=== PATIENT | male | born 1980 | race Two or more races ===

== ENCOUNTER 2020-05-27 17:21 | Inpatient (IN) | payer MEDICAID, OTHER ==
[~2020-05-27] VITALS: Ht 162.6 cm; Wt 72.2 kg
[2020-05-27] MEDS ORDERED: MORPHINE SULFATE 4 MG/ML VIAL. IV/SQ PRN (17:45)
[2020-05-27] MEDS ORDERED: DEXAMETHASONE SOD PHOS 20 MG/5 ML VIAL. IV ONE (17:45)
--- NOTE | 2020-05-27 18:12 | RAD ---
Single view chest dated 05/27/2020. No comparison available. Clinical data indication: Cough and shortness of breath. FINDINGS: Single upright portable exam performed. Heart and mediastinal contours within normal limits. There is patchy airspace disease, most predominant at the perihilar regions. No consolidation or pleural effu nanci. No pneumothorax. IMPRESSION: Patchy perihilar airspace disease consistent with pneumonia. Covid 19 pneumonitis not excluded. Electronically signed by: Enrique Hua MD (05/27/2020 6:09 PM) [id number]
[2020-05-27 19:04] LABS: BASO # 0.1 x10^3/uL (0.0-0.2); BASO % 0 % (0-3); EOS % 0 % (0-3); HEMATOCRIT 42.2 % (39.0-53.0); HEMOGLOBIN 14.6 g/dL (13.0-17.5); LYMPH # 0.7 x10^3/uL (1.0-4.8); LYMPH % 4 % (24-48); MEAN CORPUSCULAR HEMOGLOBIN 31 pg (25-35); MEAN CORPUSCULAR HGB CONC 35 g/dL (31-37); MEAN CORPUSCULAR VOLUME 90 fL (79-100); MONO # 0.4 x10^3/uL (0.0-1.1); MONO % 2 % (0-9); NEUT % 93 % (31-73); PLATELET COUNT 239 x10^3/uL (140-400); RED BLOOD COUNT 4.67 x10^6/uL (4.30-5.70); RED CELL DISTRIBUTION WIDTH 13.6 % (11.5-14.5); WHITE BLOOD COUNT 15.1 x10^3/uL (4.0-11.0)
[2020-05-27 19:13] LABS: CALCIUM 8.4 mg/dL (8.5-10.1); CREATININE 1.4 mg/dL (0.7-1.3); GFR 56.1; POTASSIUM 3.6 mmol/L (3.5-5.1)
[2020-05-27 19:19] LABS: ALBUMIN 2.7 g/dL (3.4-5.0); ALBUMIN/GLOBULIN RATIO 0.6 (1.0-1.7); TOTAL BILIRUBIN 0.8 mg/dL (0.2-1.0); TOTAL PROTEIN 7.5 g/dL (6.4-8.2)
[2020-05-27 20:03] LABS: % ATYL 2 % (0-0); % BANDS 33 % (0-9); % BASOS 1 % (0-3); % LYMPHS 3 % (24-48); % MONOS 2 % (0-10); % SEGS 59 % (35-66)
[2020-05-27 20:04] LABS: PLT ESTIMATE ADEQUATE (ADEQUATE)
[2020-05-27] MEDS ORDERED: AZITHRMYCN 500MG IVPB FOR OMNI 250 ML IV ONE (20:45)
[2020-05-27] MEDS ORDERED: cefTRIAXone IV Push 1 GM VIAL. IVP ONE (21:00)
[2020-05-27] MEDS ORDERED: ZOLPIDEM 5 MG TABLET. PO PRN (21:45)
[2020-05-27] MEDS ORDERED: DOCUSATE SODIUM 100 MG CAPSULE. PO PRN (21:45)
[2020-05-27] MEDS ORDERED: ONDANSETRON PF 4 MG/2 ML VIAL. IV PRN ×2 (21:45→23:15)
[2020-05-27] MEDS ORDERED: guaiFENesin DM 200MG/20MG 10 ML SYRUP PO PRN (21:45)
[2020-05-27] MEDS ORDERED: IV NORMAL SALINE 1000ML BAG 1,000 ML IV ONE (22:00)
[2020-05-27] MEDS: ZINC SULFATE 220 MG CAPSULE. PO SCH (22:02)
[2020-05-27] MEDS: ENOXAPARIN 40 MG/0.4 ML SYRINGE. SQ SCH (22:02)
[2020-05-27 22:21] LABS: BILIRUBIN,URINE NEGATIVE (NEG); CLARITY,URINE CLEAR; COLOR,URINE AMBER; NITRITE,URINE NEGATIVE (NEG); PH,URINE 5.5 (<5.0-8.0); PROTEIN,URINE 100 mg/dL (NEG-TRACE)
[2020-05-27 22:26] LABS: AMORPHOUS SEDIMENT,UR PRESENT /HPF; HYALINE CASTS, URINE MODERATE /HPF
[2020-05-27 22:27] LABS: BACTERIA,URINE 0 /HPF (0-FEW); GRANULAR CASTS,URINE MODERATE /HPF; RBC,URINE 0 /HPF (0-2)
--- NOTE | 2020-05-27 22:58 | PHYS DOC ---
Past Medical History Past Medical History: No Pertinent History Past Surgical History: No Surgical History Smoking Status: Never Smoker Alcohol Use: None General Adult EDM: Chief Complaint: SHORTNESS OF BREATH HPI: HPI: Patient is a 40 year old male patient with no significant medical history presented to the ED today complaining of cough, shortness of breath, fevers, symptoms have been going on since May 17, 2020, he states he had a Covid test done 05/17/20, he tested positive on May 20, 2020. Denies any chest pain. Arrives in the ED with O2 sats around 75 to 80% on room air. Review of Systems: Review of Systems: Constitutional: Reports fever Eyes: Denies change in visual acuity. [] HENT: Denies nasal congestion or sore throat. [] Respiratory: Reports cough and shortness of breath. [] Cardiovascular: Denies chest pain or edema. [] GI: Denies abdominal pain, nausea, vomiting, bloody stools or diarrhea. [] : Denies dysuria. [] Musculoskeletal: Denies back pain or joint pain. [] Integument: Denies rash. [] Neurologic: Denies headache, focal weakness or sensory changes. [] Psychiatric: Denies depression or anxiety. [] Heart Score: Risk Factors: Risk Factors: DM, Current or recent (<one month) smoker, HTN, HLP, family history of CAD, obesity. Risk Scores: Score 0 - 3: 2.5% MACE over next 6 weeks - Discharge Home Score 4 - 6: 20.3% MACE over next 6 weeks - Admit for Clinical Observation Score 7 - 10: 72.7% MACE over next 6 weeks - Early Invasive Strategies Current Medications: Current Medications Medications (Trade) Dose Ordered Sig/[facility] Start Time Stop Time Status Last Admin Dose Admin Azithromycin 250 ml @ 250 mls/hr 1X ONCE 05/27/20 20:45 05/27/20 21:44 DC 05/27/20 21:24 250 MLS/HR Ceftriaxone Sodium (Rocephin) 1 gm 1X ONCE 05/27/20 21:00 05/27/20 21:01 DC 05/27/20 21:24 1 GM Dexamethasone Sodium Phosphate (Decadron) 10 mg 1X ONCE 05/27/20 17:45 05/27/20 17:58 DC 05/27/20 19:51 10 MG Morphine Sulfate (Morphine Sulfate) 4 mg PRN Q15MIN PRN 05/27/20 17:45 05/28/20 17:44 Allergies: Allergies: Allergies Coded Allergies Type Severity Reaction Last Updated Verified No Known Drug Allergies 05/27/20 No Physical Exam: PE: Constitutional: Well developed, well nourished, no acute distress, non-toxic appearance. [] HENT: Normocephalic, atraumatic, bilateral external ears normal, oropharynx moist, no oral exudates, nose normal. [] Eyes: PERRLA, EOMI, conjunctiva normal, no discharge. [] Neck: Normal range of motion, no tenderness, supple, no stridor. [] Cardiovascular:Heart rate regular rhythm, no murmur [] Lungs & Thorax: Patient is short of air on arrival to the ED, hypoxic. Was put on 4 L of oxygen. Abdomen: Bowel sounds normal, soft, no tenderness, no masses, no pulsatile masses. [] Skin: Warm, dry, no erythema, no rash. [] Back: No tenderness, no CVA tenderness. [] Extremities: No tenderness, no cyanosis, no clubbing, ROM intact, no edema. [] Neurologic: Alert and oriented X 3, normal motor function, normal sensory function, no focal deficits noted. [] Psychologic: Affect normal, judgement normal, mood normal. [] Current Patient Data: Labs: Laboratory Tests Test 05/27/20 18:59 05/27/20 22:15 White Blood Count 15.1 x10^3/uL (4.0-11.0) H Red Blood Count 4.67 x10^6/uL (4.30-5.70) Hemoglobin 14.6 g/dL (13.0-17.5) Hematocrit 42.2 % (39.0-53.0) Mean Corpuscular Volume 90 fL (79-100) Mean Corpuscular Hemoglobin 31 pg (25-35) Mean Corpuscular Hemoglobin Concent 35 g/dL (31-37) Red Cell Distribution Width 13.6 % (11.5-14.5) Platelet Count 239 x10^3/uL (140-400) Neutrophils (%) (Auto) 93 % (31-73) H Lymphocytes (%) (Auto) 4 % (24-48) L Monocytes (%) (Auto) 2 % (0-9) Eosinophils (%) (Auto) 0 % (0-3) Basophils (%) (Auto) 0 % (0-3) Neutrophils # (Auto) 14.0 x10^3/uL (1.8-7.7) H Lymphocytes # (Auto) 0.7 x10^3/uL (1.0-4.8) L Monocytes # (Auto) 0.4 x10^3/uL (0.0-1.1) Eosinophils # (Auto) 0.0 x10^3/uL (0.0-0.7) Basophils # (Auto) 0.1 x10^3/uL (0.0-0.2) Segmented Neutrophils % 59 % (35-66) Band Neutrophils % 33 % (0-9) H Lymphocytes % 3 % (24-48) L Atypical Lymphocytes % (Manual) 2 % (0-0) H Monocytes % 2 % (0-10) Basophils % 1 % (0-3) Platelet Estimate Adequate (ADEQUATE) Sodium Level 132 mmol/L (136-145) L Potassium Level 3.6 mmol/L (3.5-5.1) Chloride Level 96 mmol/L (98-107) L Carbon Dioxide Level 28 mmol/L (21-32) Anion Gap 8 (6-14) Blood Urea Nitrogen 18 mg/dL (8-26) Creatinine 1.4 mg/dL (0.7-1.3) H Estimated GFR (Cockcroft-Gault) 56.1 BUN/Creatinine Ratio 13 (6-20) Glucose Level 96 mg/dL (70-99) Lactic Acid Level 1.4 mmol/L (0.4-2.0) Calcium Level 8.4 mg/dL (8.5-10.1) L Total Bilirubin 0.8 mg/dL (0.2-1.0) Aspartate Amino Transferase (AST) 59 U/L (15-37) H Alanine Aminotransferase (ALT) 69 U/L (16-63) H Alkaline Phosphatase 178 U/L (46-116) H Total Protein 7.5 g/dL (6.4-8.2) Albumin 2.7 g/dL (3.4-5.0) L Albumin/Globulin Ratio 0.6 (1.0-1.7) L Procalcitonin 1.10 ng/mL (0.00-0.10) H Urine Collection Type Unknown Urine Color Brionna Urine Clarity Clear Urine pH 5.5 (<5.0-8.0) Urine Specific [place] 1.020 (1.000-1.030) Urine Protein 100 mg/dL (NEG-TRACE) Urine Glucose (UA) Negative mg/dL (NEG) Urine Ketones (Stick) Negative mg/dL (NEG) Urine Blood Negative (NEG) Urine Nitrite Negative (NEG) Urine Bilirubin Negative (NEG) Urine Urobilinogen Dipstick 1.0 mg/dL (0.2 mg/dL) Urine Leukocyte Esterase Negative (NEG) Urine RBC 0 /HPF (0-2) Urine WBC 1-4 /HPF (0-4) Urine Amorphous Sediment Present /HPF Urine Bacteria 0 /HPF (0-FEW) Urine Hyaline Casts Moderate /HPF Urine Granular Casts Moderate /HPF Urine Mucus Mod /LPF Laboratory Tests 05/27/20 18:59 Laboratory Tests 05/27/20 18:59 Vital Signs: Vital Signs Date Time Temp Pulse Resp B/P (MAP) Pulse Ox O2 Delivery O2 Flow Rate FiO2 05/27/20 21:03 97 117/63 (81) 97 NonRebreather Mask 15.0 05/27/20 17:30 98.8 26 98.8 EKG: EKG: [] Radiology/Procedures: Radiology/Procedures: []PROCEDURE: PORTABLE CHEST 1V Single view chest dated 05/27/2020. No comparison available. Clinical data indication: Cough and shortness of breath. FINDINGS: Single upright portable exam performed. Heart and mediastinal contours within normal limits. There is patchy airspace disease, most predominant at the perihilar regions. No consolidation or pleural effusion. No pneumothorax. IMPRESSION: Patchy perihilar airspace disease consistent with pneumonia. Covid 19 pneumonit is not excluded. Electronically signed by: Enrique Hua MD (05/27/2020 6:09 PM) [id number] DICTATED and SIGNED BY: ENRIQUE HUA MD DATE: 05/27/20 [id number] Course & Med Decision Making: Course & Med Decision Making Pertinent Labs and Imaging studies reviewed. (See chart for details) This is a 40-year-old male patient presenting to the ED today complaining of shortness of breath, fever, cough that began on May 17, 2020, was tested for COVID-19, received a positive result by his own statement on May 20, 2020. Patient was hypoxic on arrival to the ED, O2 saturations were 75 to 80% on room air. He was put on oxygen 4 L satting at 92%. He was increased to 5 L still struggling to breathe with O2 around 88%. He was finally put on a nonrebreather with O2 sats at 97%-100%. Temperature 98.8, heart rate 110, blood pressure 115/65, heart rate 110 CBC with WBC of 15.1, CMP with creatinine of 1.4, BUN is normal. Lactic is normal, pro calcitonin 1.10. AST 59 ALT 69 ALK 178 Chest x-ray noted for possible Covid pneumonia Patient was started on Decadron, Rocephin, azithromycin. Spoke with Dr. Hutchinson who accepted patient for admission Huan Disclaimer: Huan Disclaimer: This electronic medical record was generated, in whole or in part, using a voice recognition dictation system. Departure Departure Impression: Primary Impression: COVID-19 Additional Impressions: Acute respiratory failure with hypoxia ARF (acute renal failure) Qualified Codes: N17.9 - Acute kidney failure, unspecified Disposition: 09 ADMITTED INPT THIS HOSP Condition: STABLE Referrals: NO PCP (PCP) KALE ASHTON APRN May 27, 2020 22:58
[2020-05-27] MEDS ORDERED: REMDESIVIR LOAD in IV NORMAL SALINE 250ML TV IV ONE (23:00)
[2020-05-27] MEDS ORDERED: ACETAMINOPHEN 325 MG TABLET. PO PRN (23:15)
[2020-05-27] MEDS ORDERED: MORPHINE SULFATE 2 MG/ML VIAL. IV PRN (23:15)
--- NOTE | 2020-05-27 23:53 | NUR ---
Pt to floor via cart from ED. Pt on non rebreather. Pt has no home medications.
[2020-05-27 23:54] VITALS: BP 111/66
[2020-05-28] VITALS (15 sets, daily range): BP systolic 97–126; BP diastolic 55–78
--- NOTE | 2020-05-28 05:13 | EKG ---
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
[2020-05-28] MEDS: DEXAMETHASONE SOD PHOS 4 MG/ML VIAL IVP SCH (05:46)
--- NOTE | 2020-05-28 07:20 | PDOC1 ---
History and Physical Date of Admission Date of Admission DATE: 05/28/20 TIME: 07:05 Identification/Chief Complaint Chief Complaint Shortness of breath Source Source: Chart review, Patient History of Present Illness History of Present Illness Patient is a 40-year-old male complains of ER with complaints of worsening cough, fever, shortness of breath for the past 10 days. He states he tested positive for COVID-19 on 05/20/20. He is taking [id number] medications for symptoms with improvement. Upon arrival in the ER patient was saturating 75-80% on room air, which improved on 4 L nasal cannula. Will admit patient for further medical management. Past Medical History Past Medical History Denies past medical history Past Surgical History Past Surgical History: No pertinent history Family History Family History Denies pertinent family history Social History Smoke: No ALCOHOL: none Drugs: None Current Problem List Problem List Problems Medical Problems: (1) ARF (acute renal failure) Status: Acute Current Medications Current Medications Current Medications Morphine Sulfate (Morphine Sulfate) 4 mg PRN Q15MIN PRN IV/SQ PAIN GREATER THAN 3/10; Start 05/27/20 at 17:45; Stop 05/28/20 at 17:44 Dexamethasone Sodium Phosphate (Decadron) 10 mg 1X ONCE IV Last administered on 05/27/20at 19:51; Start 05/27/20 at 17:45; Stop 05/27/20 at 17:58; Status DC Ceftriaxone Sodium (Rocephin) 1 gm 1X ONCE IVP Last administered on 05/27/20at 21:24; Start 05/27/20 at 21:00; Stop 05/27/20 at 21:01; Status DC Azithromycin 250 ml @ 250 mls/hr 1X ONCE IV Last administered on 05/27/20at 21:24; Start 05/27/20 at 20:45; Stop 05/27/20 at 21:44; Status DC Ondansetron HCl (Zofran) 4 mg PRN Q4HRS PRN IV NAUSEA/VOMITING 1st choice; Start 05/27/20 at 21:45 Zolpidem Tartrate (Ambien) 5 mg PRN QHS PRN PO INSOMNIA; Start 05/27/20 at 21:45 Acetaminophen (Tylenol) 650 mg PRN Q4HRS PRN PO TEMP OVER 100.4F OR MILD PAIN; Start 05/27/20 at 21:45 Docusate Sodium (Colace) 100 mg PRN BID PRN PO HARD STOOLS; Start 05/27/20 at 21:45 Enoxaparin Sodium (Lovenox 40mg Syringe) 40 mg BID SQ Last administered on 05/27/20at 22:02; Start 05/27/20 at 22:00 Zinc Sulfate (Orazinc) 220 mg DAILY PO Last administered on 05/27/20at 22:02; Start 05/27/20 at 22:00 Guaifenesin (Robitussin Dm) 10 ml PRN Q6HRS PRN PO COUGH 1ST CHOICE; Start 05/27/20 at 21:45 Ceftriaxone Sodium (Rocephin) 1 gm QHS IVP ; Start 05/28/20 at 21:00 Azithromycin (Zithromax) 250 mg DAILY PO ; Start 05/28/20 at 09:00; Stop 05/31/20 at 09:01 Dexamethasone Sodium Phosphate (Decadron) 6 mg DAILY07 IVP Last administered on 05/28/20at 05:46; Start 05/28/20 at 07:00 Sodium Chloride 1,000 ml @ 125 mls/hr 1X ONCE IV Last administered on 05/27/20at 22:03; Start 05/27/20 at 22:00; Stop 05/28/20 at 05:59; Status DC Remdesivir 200 mg/ Sodium Chloride 210 ml @ 210 mls/hr 1X ONCE IV Last administered on 05/27/20at 23:11; Start 05/27/20 at 23:00; Stop 05/27/20 at 23:59; Status DC Remdesivir 100 mg/ Sodium Chloride 230 ml @ 460 mls/hr Q24H IV ; Start 05/28/20 at 22:00; Stop 05/31/20 at 22:29 Ondansetron HCl (Zofran) 4 mg PRN Q8HRS PRN IV NAUSEA/VOMITING; Start 05/27/20 at 23:15; Stop 05/27/20 at 23:12; Status DC Morphine Sulfate (Morphine Sulfate) 2 mg PRN Q2HR PRN IV SEVERE PAIN 7-10; Start 05/27/20 at 23:15; Stop 05/28/20 at 23:14 Acetaminophen (Tylenol) 650 mg PRN Q4HRS PRN PO FEVER > 100.3'F; Start 05/27/20 at 23:15; Stop 05/27/20 at 23:12; Status DC Allergies Allergies: Coded Allergies: No Known Drug Allergies (Unverified , 05/27/20) ROS Review of System GENERAL: Fever. No history of weight change, weakness. SKIN: No bruising, hair changes or rashes. EYES: No blurred, double or loss of vision. NOSE AND THROAT: No history of nosebleeds, hoarseness or sore throat. HEART: Denies chest pain, denies palpitations. LUNGS: Cough, shortness of breath. Denies hemoptysis or wheezing. GASTROINTESTINAL: Denies nausea, vomiting, abdominal pain. GENITOURINARY: Denies dysuria, frequency, urgency, hematuria. NEUROLOGIC: Denies history of numbness, tingling, tremor or weakness. PSYCHIATRIC: Denies anxiety, denies depression. ENDOCRINE: No history of heat or cold intolerance, polyuria or polydipsia. EXTREMITIES: Denies muscle weakness, joint pain, pain on walking or stiffness. Physical Exam Physical Exam General: Alert, Oriented X3, Cooperative, No acute distress HEENT: PERRLA, EOMI Lungs: Right lower lung crackles. No excessive work of breathing. Heart: RRR, no murmurs Cardiovascular: S1, S2 Abdomen: Normal bowel sounds, Soft, No tenderness Extremities: No clubbing, No cyanosis Skin: No rashes, No significant lesion Neuro: Normal speech, Normal tone, Sensation intact Psych/Mental Status: Mental status NL, Mood NL Vitals Vitals Vital Signs Date Time Temp Pulse Resp B/P (MAP) Pulse Ox O2 Delivery O2 Flow Rate FiO2 05/28/20 03:00 98.9 90 18 126/72 (90) 93 15.0 98.9 05/27/20 23:54 NonRebreather Mask Labs Labs Laboratory Tests Test 05/27/20 18:59 05/27/20 22:15 White Blood Count 15.1 x10^3/uL (4.0-11.0) Red Blood Count 4.67 x10^6/uL (4.30-5.70) Hemoglobin 14.6 g/dL (13.0-17.5) Hematocrit 42.2 % (39.0-53.0) Mean Corpuscular Volume 90 fL (79-100) Mean Corpuscular Hemoglobin 31 pg (25-35) Mean Corpuscular Hemoglobin Concent 35 g/dL (31-37) Red Cell Distribution Width 13.6 % (11.5-14.5) Platelet Count 239 x10^3/uL (140-400) Neutrophils (%) (Auto) 93 % (31-73) Lymphocytes (%) (Auto) 4 % (24-48) Monocytes (%) (Auto) 2 % (0-9) Eosinophils (%) (Auto) 0 % (0-3) Basophils (%) (Auto) 0 % (0-3) Neutrophils # (Auto) 14.0 x10^3/uL (1.8-7.7) Lymphocytes # (Auto) 0.7 x10^3/uL (1.0-4.8) Monocytes # (Auto) 0.4 x10^3/uL (0.0-1.1) Eosinophils # (Auto) 0.0 x10^3/uL (0.0-0.7) Basophils # (Auto) 0.1 x10^3/uL (0.0-0.2) Segmented Neutrophils % 59 % (35-66) Band Neutrophils % 33 % (0-9) Lymphocytes % 3 % (24-48) Atypical Lymphocytes % (Manual) 2 % (0-0) Monocytes % 2 % (0-10) Basophils % 1 % (0-3) Platelet Estimate Adequate (ADEQUATE) Sodium Level 132 mmol/L (136-145) Potassium Level 3.6 mmol/L (3.5-5.1) Chloride Level 96 mmol/L (98-107) Carbon Dioxide Level 28 mmol/L (21-32) Anion Gap 8 (6-14) Blood Urea Nitrogen 18 mg/dL (8-26) Creatinine 1.4 mg/dL (0.7-1.3) Estimated GFR (Cockcroft-Gault) 56.1 BUN/Creatinine Ratio 13 (6-20) Glucose Level 96 mg/dL (70-99) Lactic Acid Level 1.4 mmol/L (0.4-2.0) Calcium Level 8.4 mg/dL (8.5-10.1) Total Bilirubin 0.8 mg/dL (0.2-1.0) Aspartate Amino Transf (AST/SGOT) 59 U/L (15-37) Alanine Aminotransferase (ALT/SGPT) 69 U/L (16-63) Alkaline Phosphatase 178 U/L (46-116) Total Protein 7.5 g/dL (6.4-8.2) Albumin 2.7 g/dL (3.4-5.0) Albumin/Globulin Ratio 0.6 (1.0-1.7) Procalcitonin 1.10 ng/mL (0.00-0.10) Urine Collection Type Unknown Urine Color Brionna Urine Clarity Clear Urine pH 5.5 (<5.0-8.0) Urine Specific [place] 1.020 (1.000-1.030) Urine Protein 100 mg/dL (NEG-TRACE) Urine Glucose (UA) Negative mg/dL (NEG) Urine Ketones (Stick) Negative mg/dL (NEG) Urine Blood Negative (NEG) Urine Nitrite Negative (NEG) Urine Bilirubin Negative (NEG) Urine Urobilinogen Dipstick 1.0 mg/dL (0.2 mg/dL) Urine Leukocyte Esterase Negative (NEG) Urine RBC 0 /HPF (0-2) Urine WBC 1-4 /HPF (0-4) Urine Amorphous Sediment Present /HPF Urine Bacteria 0 /HPF (0-FEW) Urine Hyaline Casts Moderate /HPF Urine Granular Casts Moderate /HPF Urine Mucus Mod /LPF Laboratory Tests Test 05/27/20 18:59 05/27/20 22:15 White Blood Count 15.1 x10^3/uL (4.0-11.0) Red Blood Count 4.67 x10^6/uL (4.30-5.70) Hemoglobin 14.6 g/dL (13.0-17.5) Hematocrit 42.2 % (39.0-53.0) Mean Corpuscular Volume 90 fL (79-100) Mean Corpuscular Hemoglobin 31 pg (25-35) Mean Corpuscular Hemoglobin Concent 35 g/dL (31-37) Red Cell Distribution Width 13.6 % (11.5-14.5) Platelet Count 239 x10^3/uL (140-400) Neutrophils (%) (Auto) 93 % (31-73) Lymphocytes (%) (Auto) 4 % (24-48) Monocytes (%) (Auto) 2 % (0-9) Eosinophils (%) (Auto) 0 % (0-3) Basophils (%) (Auto) 0 % (0-3) Neutrophils # (Auto) 14.0 x10^3/uL (1.8-7.7) Lymphocytes # (Auto) 0.7 x10^3/uL (1.0-4.8) Monocytes # (Auto) 0.4 x10^3/uL (0.0-1.1) Eosinophils # (Auto) 0.0 x10^3/uL (0.0-0.7) Basophils # (Auto) 0.1 x10^3/uL (0.0-0.2) Segmented Neutrophils % 59 % (35-66) Band Neutrophils % 33 % (0-9) Lymphocytes % 3 % (24-48) Atypical Lymphocytes % (Manual) 2 % (0-0) Monocytes % 2 % (0-10) Basophils % 1 % (0-3) Platelet Estimate Adequate (ADEQUATE) Sodium Level 132 mmol/L (136-145) Potassium Level 3.6 mmol/L (3.5-5.1) Chloride Level 96 mmol/L (98-107) Carbon Dioxide Level 28 mmol/L (21-32) Anion Gap 8 (6-14) Blood Urea Nitrogen 18 mg/dL (8-26) Creatinine 1.4 mg/dL (0.7-1.3) Estimated GFR (Cockcroft-Gault) 56.1 BUN/Creatinine Ratio 13 (6-20) Glucose Level 96 mg/dL (70-99) Lactic Acid Level 1.4 mmol/L (0.4-2.0) Calcium Level 8.4 mg/dL (8.5-10.1) Total Bilirubin 0.8 mg/dL (0.2-1.0) Aspartate Amino Transf (AST/SGOT) 59 U/L (15-37) Alanine Aminotransferase (ALT/SGPT) 69 U/L (16-63) Alkaline Phosphatase 178 U/L (46-116) Total Protein 7.5 g/dL (6.4-8.2) Albumin 2.7 g/dL (3.4-5.0) Albumin/Globulin Ratio 0.6 (1.0-1.7) Procalcitonin 1.10 ng/mL (0.00-0.10) Urine Collection Type Unknown Urine Color [place]ionna Urine Clarity Clear Urine pH 5.5 (<5.0-8.0) Urine Specific [place] 1.020 (1.000-1.030) Urine Protein 100 mg/dL (NEG-TRACE) Urine Glucose (UA) Negative mg/dL (NEG) Urine Ketones (Stick) Negative mg/dL (NEG) Urine Blood Negative (NEG) Urine Nitrite Negative (NEG) Urine Bilirubin Negative (NEG) Urine Urobilinogen Dipstick 1.0 mg/dL (0.2 mg/dL) Urine Leukocyte Esterase Negative (NEG) Urine RBC 0 /HPF (0-2) Urine WBC 1-4 /HPF (0-4) Urine Amorphous Sediment Present /HPF Urine Bacteria 0 /HPF (0-FEW) Urine Hyaline Casts Moderate /HPF Urine Granular Casts Moderate /HPF Urine Mucus Mod /LPF Images Images PORTABLE CHEST 1V Single view chest dated 05/27/2020. No comparison available. Clinical data indication: Cough and shortness of breath. FINDINGS: Single upright portable exam performed. Heart and mediastinal contours within normal limits. There is patchy airspace disease, most predominant at the perihilar regions. No consolidation or pleural effusion. No pneumothorax. IMPRESSION: Patchy perihilar airspace disease consistent with pneumonia. Covid 19 pneumonitis not excluded. VTE Prophylaxis Ordered VTE Prophylaxis Devices: No VTE Pharmacological Prophylaxi: Yes Assessment/Plan Assessment/Plan Acute respiratory failure hypoxia COVID-19 pneumonia Leukocytosis MARIA VICTORIA Vasomotor nephropathy Severe malnutrition Plan: Positive COVID-19 test outpatient. Labs and imaging consistent with COVID-19 i nfection. Patient initiated on remdesivir; will follow LFTs Rocephin and azithromycin; IV steroids Consultation to pulmonology, patient their recommendations Supportive care FEN - Cardiac diet PPX - Lovenox FULL CODE Dispo - inpatient for above Justifications for Admission Other Justification MARIA ELENA RAY MD May 28, 2020 07:20
--- NOTE | 2020-05-28 08:30 | CONS ---
DATE OF CONSULTATION: PULMONARY CONSULTATION ATTENDING PHYSICIAN: Evan Hutchinson MD REASON FOR CONSULTATION: Respiratory failure, hypoxia. HISTORY OF PRESENT ILLNESS: This is a 40-year-old male with no significant past medical history. He has no history of tobacco use. He was brought into the hospital with cough, shortness of breath, fevers and the symptoms have been going on since 05/17/2020. He was tested positive on 05/20/2020. His saturation was 75-80% on room air on arrival. Currently, he is on a nonrebreather mask and saturations are in the high 80s. He does appear comfortable. Denies any chest pain, no headache, no nausea, vomiting or diarrhea. Chest x-ray showed bilateral patchy infiltrates. PAST MEDICAL HISTORY: Essentially unremarkable. PAST SURGICAL HISTORY: None. SOCIAL HISTORY: Nonsmoker. ALLERGIES: None. MEDICATIONS: Reviewed as listed in the MRAD including remdesivir and dexamethasone. REVIEW OF SYSTEMS: As discussed in my history of present illness, otherwise noncontributory. PHYSICAL EXAMINATION: VITAL SIGNS: Reviewed. Afebrile, blood pressure stable, pulse ox 93% on 15 liters. GENERAL: Visual exam done due to COVID-19. No obvious respiratory distress, but on 100% oxygen. SKIN: No skin rash. EXTREMITIES: No paradoxical breathing. LABORATORY DATA: Reviewed. White cell count 15.1, hemoglobin 14.6 and platelets are 239. BUN 18, creatinine 1.4. Procalcitonin 1.1. IMPRESSION: 1. Acute hypoxic respiratory failure secondary to acute respiratory distress syndrome and acute lung injury from COVID-19 viral pneumonia. 2. COVID-19 viral pneumonia. 3. Abnormal chest x-ray with bilateral patchy infiltrates consistent with COVID-19 pneumonia. Cannot exclude superimposed bacterial pneumonia. 4. Abnormal liver function test secondary to COVID-19. 5. Increased procalcitonin. Likely superimposed bacterial pneumonia. 6. Hyponatremia. 7. Acute kidney injury. RECOMMENDATIONS: 1. We will transfer the patient to the ICU and place him on high flow oxygen via Vapotherm. 2. Closely watch for his oxygenation. May need mechanical ventilation. 3. Remdesivir has been initiated and will continue. 4. Continue dexamethasone. 5. Empiric antibiotics. 6. High dose DVT prophylaxis. 7. Obtain D-dimer. 8. Cough suppressant. 9. Discussed with RN. We will follow along with you. cct 30 min SUELLEN BLANCO MD DR: PETER/hill JOB#: [id number] / [id number] NISHA
[2020-05-28] MEDS: ZINC SULFATE 220 MG CAPSULE. PO SCH (08:32)
[2020-05-28] MEDS: AZITHROMYCIN 250 MG TABLET. PO SCH (08:32)
[2020-05-28] MEDS: ENOXAPARIN 40 MG/0.4 ML SYRINGE. SQ SCH ×2 (08:32→21:08)
--- NOTE | 2020-05-28 08:45 | NUR ---
Rounds were made by Dr Sen. Orders received to transfer pt to ICU for Vapotherm. Pt currently on non rebreather at 15L and oxygen sat 85-88%. When nonrebreather was removed to take po meds, sats dropped to 72%. Spoke to family and patient verbalized understanding of transfer. Dr Franco was here and saw patient prior to transfer.
[2020-05-28] MEDS: STERILE WATER for RESP 1,000 ML BAG. INH PRN ×2 (09:01→16:15)
--- NOTE | 2020-05-28 09:15 | NUR ---
CHANDRA following for discharge planning. Pt admitted to 6S from ED and then transferred to ICU. Pt on 15l. santos Lepe to follow.
[2020-05-28 09:37] LABS: BASO % 0 % (0-3); EOS % 0 % (0-3); HEMATOCRIT 43.7 % (39.0-53.0); HEMOGLOBIN 14.5 g/dL (13.0-17.5); LYMPH # 0.5 x10^3/uL (1.0-4.8); LYMPH % 3 % (24-48); MEAN CORPUSCULAR HEMOGLOBIN 31 pg (25-35); MEAN CORPUSCULAR HGB CONC 33 g/dL (31-37); MEAN CORPUSCULAR VOLUME 92 fL (79-100); MONO # 0.3 x10^3/uL (0.0-1.1); MONO % 2 % (0-9); NEUT % 95 % (31-73); PLATELET COUNT 269 x10^3/uL (140-400); RED BLOOD COUNT 4.76 x10^6/uL (4.30-5.70); RED CELL DISTRIBUTION WIDTH 13.8 % (11.5-14.5); WHITE BLOOD COUNT 15.8 x10^3/uL (4.0-11.0)
[2020-05-28 09:42] LABS: ALBUMIN 2.4 g/dL (3.4-5.0); ALBUMIN/GLOBULIN RATIO 0.5 (1.0-1.7); CALCIUM 8.5 mg/dL (8.5-10.1); GFR 82.8; POTASSIUM 3.7 mmol/L (3.5-5.1); TOTAL BILIRUBIN 0.4 mg/dL (0.2-1.0); TOTAL PROTEIN 7.3 g/dL (6.4-8.2)
[2020-05-28] MEDS: IV NORMAL SALINE 1000ML BAG 1,000 ML IV SCH ×2 (10:00→21:28)
[2020-05-28] MEDS: ACETAMINOPHEN 325 MG TABLET. PO PRN (15:53)
[2020-05-28] MEDS: cefTRIAXone IV Push 1 GM VIAL. IVP SCH (21:09)
[2020-05-28] MEDS: REMDESIVIR 100mg in NORMAL SALINE 250ML X 4 DAYS IV SCH (21:29)
[2020-05-29] VITALS (23 sets, daily range): BP systolic 97–129; BP diastolic 56–86
[2020-05-29] MEDS: DEXAMETHASONE SOD PHOS 4 MG/ML VIAL IVP SCH (06:55)
[2020-05-29 07:33] LABS: BASO % 0 % (0-3); EOS % 0 % (0-3); HEMATOCRIT 39.4 % (39.0-53.0); HEMOGLOBIN 13.4 g/dL (13.0-17.5); LYMPH # 0.7 x10^3/uL (1.0-4.8); LYMPH % 6 % (24-48); MEAN CORPUSCULAR HEMOGLOBIN 31 pg (25-35); MEAN CORPUSCULAR HGB CONC 34 g/dL (31-37); MEAN CORPUSCULAR VOLUME 91 fL (79-100); MONO % 8 % (0-9); NEUT # 10.6 x10^3/uL (1.8-7.7); NEUT % 86 % (31-73); PLATELET COUNT 303 x10^3/uL (140-400); RED BLOOD COUNT 4.32 x10^6/uL (4.30-5.70); RED CELL DISTRIBUTION WIDTH 14.1 % (11.5-14.5); WHITE BLOOD COUNT 12.3 x10^3/uL (4.0-11.0)
[2020-05-29] MEDS: STERILE WATER for RESP 1,000 ML BAG. INH PRN (07:39)
[2020-05-29 07:46] LABS: CALCIUM 8.2 mg/dL (8.5-10.1); GFR 82.8; POTASSIUM 3.9 mmol/L (3.5-5.1)
[2020-05-29] MEDS: ENOXAPARIN 40 MG/0.4 ML SYRINGE. SQ SCH ×2 (08:32→21:34)
[2020-05-29] MEDS: AZITHROMYCIN 250 MG TABLET. PO SCH (08:32)
[2020-05-29] MEDS: ZINC SULFATE 220 MG CAPSULE. PO SCH (08:32)
[2020-05-29] MEDS ORDERED: POLYVINYL ALCOHOL 1.4% OPHTH SOLUTION 15ML BOTTLE. OU PRN (09:00)
[2020-05-29 09:17] LABS: ALBUMIN 2.1 g/dL (3.4-5.0); DIRECT BILIRUBIN 0.2 mg/dL (0.0-0.2); TOTAL BILIRUBIN 0.3 mg/dL (0.2-1.0); TOTAL PROTEIN 6.6 g/dL (6.4-8.2)
[2020-05-29 10:23] LABS: MAGNESIUM 2.6 mg/dL (1.8-2.4)
--- NOTE | 2020-05-29 10:25 | PDOC ---
PULMONARY PROGRESS NOTES DATE: 05/29/20 TIME: 10:22 Subjective remains on vapotherm 100%FIO2 Vitals Vital Signs Date Time Temp Pulse Resp B/P (MAP) Pulse Ox O2 Delivery O2 Flow Rate FiO2 05/29/20 09:04 91 VapoTherm 30.0 05/29/20 09:00 68 22 126/73 (90) 05/29/20 07:00 98.5 98.5 Comments visual exam done no resp distress General: Alert, No acute distress Labs Laboratory Tests Test 05/27/20 18:59 05/27/20 22:15 05/28/20 08:43 05/28/20 08:45 White Blood Count 15.1 x10^3/uL (4.0-11.0) 15.8 x10^3/uL (4.0-11.0) Red Blood Count 4.67 x10^6/uL (4.30-5.70) 4.76 x10^6/uL (4.30-5.70) Hemoglobin 14.6 g/dL (13.0-17.5) 14.5 g/dL (13.0-17.5) Hematocrit 42.2 % (39.0-53.0) 43.7 % (39.0-53.0) Mean Corpuscular Volume 90 fL (79-100) 92 fL (79-100) Mean Corpuscular Hemoglobin 31 pg (25-35) 31 pg (25-35) Mean Corpuscular Hemoglobin Concent 35 g/dL (31-37) 33 g/dL (31-37) Red Cell Distribution Width 13.6 % (11.5-14.5) 13.8 % (11.5-14.5) Platelet Count 239 x10^3/uL (140-400) 269 x10^3/uL (140-400) Neutrophils (%) (Auto) 93 % (31-73) 95 % (31-73) Lymphocytes (%) (Auto) 4 % (24-48) 3 % (24-48) Monocytes (%) (Auto) 2 % (0-9) 2 % (0-9) Eosinophils (%) (Auto) 0 % (0-3) 0 % (0-3) Basophils (%) (Auto) 0 % (0-3) 0 % (0-3) Neutrophils # (Auto) 14.0 x10^3/uL (1.8-7.7) 15.0 x10^3/uL (1.8-7.7) Lymphocytes # (Auto) 0.7 x10^3/uL (1.0-4.8) 0.5 x10^3/uL (1.0-4.8) Monocytes # (Auto) 0.4 x10^3/uL (0.0-1.1) 0.3 x10^3/uL (0.0-1.1) Eosinophils # (Auto) 0.0 x10^3/uL (0.0-0.7) 0.0 x10^3/uL (0.0-0.7) Basophils # (Auto) 0.1 x10^3/uL (0.0-0.2) 0.0 x10^3/uL (0.0-0.2) Segmented Neutrophils % 59 % (35-66) Band Neutrophils % 33 % (0-9) Lymphocytes % 3 % (24-48) Atypical Lymphocytes % (Manual) 2 % (0-0) Monocytes % 2 % (0-10) Basophils % 1 % (0-3) Platelet Estimate Adequate (ADEQUATE) Sodium Level 132 mmol/L (136-145) 137 mmol/L (136-145) Potassium Level 3.6 mmol/L (3.5-5.1) 3.7 mmol/L (3.5-5.1) Chloride Level 96 mmol/L (98-107) 99 mmol/L (98-107) Carbon Dioxide Level 28 mmol/L (21-32) 27 mmol/L (21-32) Anion Gap 8 (6-14) 11 (6-14) Blood Urea Nitrogen 18 mg/dL (8-26) 20 mg/dL (8-26) Creatinine 1.4 mg/dL (0.7-1.3) 1.0 mg/dL (0.7-1.3) Estimated GFR (Cockcroft-Gault) 56.1 82.8 BUN/Creatinine Ratio 13 (6-20) 20 (6-20) Glucose Level 96 mg/dL (70-99) 141 mg/dL (70-99) Lactic Acid Level 1.4 mmol/L (0.4-2.0) Calcium Level 8.4 mg/dL (8.5-10.1) 8.5 mg/dL (8.5-10.1) Total Bilirubin 0.8 mg/dL (0.2-1.0) 0.4 mg/dL (0.2-1.0) Aspartate Amino Transf (AST/SGOT) 59 U/L (15-37) 58 U/L (15-37) Alanine Aminotransferase (ALT/SGPT) 69 U/L (16-63) 62 U/L (16-63) Alkaline Phosphatase 178 U/L (46-116) 166 U/L (46-116) Total Protein 7.5 g/dL (6.4-8.2) 7.3 g/dL (6.4-8.2) Albumin 2.7 g/dL (3.4-5.0) 2.4 g/dL (3.4-5.0) Albumin/Globulin Ratio 0.6 (1.0-1.7) 0.5 (1.0-1.7) Procalcitonin 1.10 ng/mL (0.00-0.10) Urine Collection Type Unknown Urine Color Brionna Urine Clarity Clear Urine pH 5.5 (<5.0-8.0) Urine Specific [place] 1.020 (1.000-1.030) Urine Protein 100 mg/dL (NEG-TRACE) Urine Glucose (UA) Negative mg/dL (NEG) Urine Ketones (Stick) Negative mg/dL (NEG) Urine Blood Negative (NEG) Urine Nitrite Negative (NEG) Urine Bilirubin Negative (NEG) Urine Urobilinogen Dipstick 1.0 mg/dL (0.2 mg/dL) Urine Leukocyte Esterase Negative (NEG) Urine RBC 0 /HPF (0-2) Urine WBC 1-4 /HPF (0-4) Urine Amorphous Sediment Present /HPF Urine Bacteria 0 /HPF (0-FEW) Urine Hyaline Casts Moderate /HPF Urine Granular Casts Moderate /HPF Urine Mucus Mod /LPF D-Dimer (Yulia) 1.37 ug/mlFEU (0.00-0.50) Test 05/29/20 07:15 White Blood Count 12.3 x10^3/uL (4.0-11.0) Red Blood Count 4.32 x10^6/uL (4.30-5.70) Hemoglobin 13.4 g/dL (13.0-17.5) Hematocrit 39.4 % (39.0-53.0) Mean Corpuscular Volume 91 fL (79-100) Mean Corpuscular Hemoglobin 31 pg (25-35) Mean Corpuscular Hemoglobin Concent 34 g/dL (31-37) Red Cell Distribution Width 14.1 % (11.5-14.5) Platelet Count 303 x10^3/uL (140-400) Neutrophils (%) (Auto) 86 % (31-73) Lymphocytes (%) (Auto) 6 % (24-48) Monocytes (%) (Auto) 8 % (0-9) Eosinophils (%) (Auto) 0 % (0-3) Basophils (%) (Auto) 0 % (0-3) Neutrophils # (Auto) 10.6 x10^3/uL (1.8-7.7) Lymphocytes # (Auto) 0.7 x10^3/uL (1.0-4.8) Monocytes # (Auto) 1.0 x10^3/uL (0.0-1.1) Eosinophils # (Auto) 0.0 x10^3/uL (0.0-0.7) Basophils # (Auto) 0.0 x10^3/uL (0.0-0.2) D-Dimer (Yulia) 0.98 ug/mlFEU (0.00-0.50) Sodium Level 139 mmol/L (136-145) Potassium Level 3.9 mmol/L (3.5-5.1) Chloride Level 104 mmol/L (98-107) Carbon Dioxide Level 26 mmol/L (21-32) Anion Gap 9 (6-14) Blood Urea Nitrogen 24 mg/dL (8-26) Creatinine 1.0 mg/dL (0.7-1.3) Estimated GFR (Cockcroft-Gault) 82.8 Glucose Level 108 mg/dL (70-99) Calcium Level 8.2 mg/dL (8.5-10.1) Total Bilirubin 0.3 mg/dL (0.2-1.0) Direct Bilirubin 0.2 mg/dL (0.0-0.2) Aspartate Amino Transf (AST/SGOT) 56 U/L (15-37) Alanine Aminotransferase (ALT/SGPT) 63 U/L (16-63) Alkaline Phosphatase 152 U/L (46-116) WP-Fun-T-Type Natriuretic Peptide 201 pg/mL (0-124) Total Protein 6.6 g/dL (6.4-8.2) Albumin 2.1 g/dL (3.4-5.0) Laboratory Tests Test 05/29/20 07:15 White Blood Count 12.3 x10^3/uL (4.0-11.0) Red Blood Count 4.32 x10^6/uL (4.30-5.70) Hemoglobin 13.4 g/dL (13.0-17.5) Hematocrit 39.4 % (39.0-53.0) Mean Corpuscular Volume 91 fL (79-100) Mean Corpuscular Hemoglobin 31 pg (25-35) Mean Corpuscular Hemoglobin Concent 34 g/dL (31-37) Red Cell Distribution Width 14.1 % (11.5-14.5) Platelet Count 303 x10^3/uL (140-400) Neutrophils (%) (Auto) 86 % (31-73) Lymphocytes (%) (Auto) 6 % (24-48) Monocytes (%) (Auto) 8 % (0-9) Eosinophils (%) (Auto) 0 % (0-3) Basophils (%) (Auto) 0 % (0-3) Neutrophils # (Auto) 10.6 x10^3/uL (1.8-7.7) Lymphocytes # (Auto) 0.7 x10^3/uL (1.0-4.8) Monocytes # (Auto) 1.0 x10^3/uL (0.0-1.1) Eosinophils # (Auto) 0.0 x10^3/uL (0.0-0.7) Basophils # (Auto) 0.0 x10^3/uL (0.0-0.2) D-Dimer (Yulia) 0.98 ug/mlFEU (0.00-0.50) Sodium Level 139 mmol/L (136-145) Potassium Level 3.9 mmol/L (3.5-5.1) Chloride Level 104 mmol/L (98-107) Carbon Dioxide Level 26 mmol/L (21-32) Anion Gap 9 (6-14) Blood Urea Nitrogen 24 mg/dL (8-26) Creatinine 1.0 mg/dL (0.7-1.3) Estimated GFR (Cockcroft-Gault) 82.8 Glucose Level 108 mg/dL (70-99) Calcium Level 8.2 mg/dL (8.5-10.1) Total Bilirubin 0.3 mg/dL (0.2-1.0) Direct Bilirubin 0.2 mg/dL (0.0-0.2) Aspartate Amino Transf (AST/SGOT) 56 U/L (15-37) Alanine Aminotransferase (ALT/SGPT) 63 U/L (16-63) Alkaline Phosphatase 152 U/L (46-116) LX-Bqh-W-Type Natriuretic Peptide 201 pg/mL (0-124) Total Protein 6.6 g/dL (6.4-8.2) Albumin 2.1 g/dL (3.4-5.0) Impression . 1. Acute hypoxic respiratory failure secondary to acute respiratory distress syndrome and acute lung injury from COVID-19 viral pneumonia. 2. COVID-19 viral pneumonia. 3. Abnormal chest x-ray with bilateral patchy infiltrates consistent with COVID-19 pneumonia. Cannot exclude superimposed bacterial pneumonia. 4. Abnormal liver function test secondary to COVID-19. 5. Increased procalcitonin. Likely superimposed bacterial pneumonia. 6. Hyponatremia. 7. Acute kidney injury. Plan . 1. Continue high flow oxygen Vapotherm./100%FIO2 2. Closely watch for his oxygenation. May need mechanical ventilation. 3. Remdesivir has been initiated and will continue. 4. Continue dexamethasone. 5. Empiric antibiotics. 6. High dose DVT prophylaxis. 7. D-dimer.trending down 8. Cough suppressant. 9. Discussed with RN. We will follow along with you. SUELLEN BLANCO MD May 29, 2020 10:25
[2020-05-29] MEDS: ASCORBIC ACID 1,000 MG TABLET PO SCH (12:51)
[2020-05-29] MEDS: IV NORMAL SALINE 1000ML BAG 1,000 ML IV SCH (12:51)
[2020-05-29] MEDS: FOLIC/VIT B COMP W-C (RENAL) TABLET. PO SCH (12:51)
[2020-05-29] MEDS: ACETAMINOPHEN 325 MG TABLET. PO PRN (12:51)
--- NOTE | 2020-05-29 14:01 | PDOC ---
PROGRESS NOTES Date of Service: DATE: 05/29/20 TIME: 14:01 Chief Complaint Chief Complaint Acute respiratory failure hypoxia COVID-19 pneumonia Leukocytosis MARIA VICTORIA Vasomotor nephropathy Severe malnutrition History of Present Illness History of Present Illness Positive COVID-19 test outpatient. Labs and imaging consistent with COVID-19 infection. Patient initiated on remdesivir; will follow LFTs Rocephin and azithromycin; IV steroids Consultation to pulmonology, patient their recommendations Supportive care Vitals Vitals Vital Signs Date Time Temp Pulse Resp B/P (MAP) Pulse Ox O2 Delivery O2 Flow Rate FiO2 05/29/20 12:00 Nasal Cannula 30.0 05/29/20 12:00 76 22 120/68 (85) 93 05/29/20 11:00 99.0 99.0 Physical Exam General: Alert, Oriented X3, Cooperative, No acute distress Heart: Regular rate, Normal S1 Lungs: Clear Abdomen: Normal bowel sounds, Soft Extremities: No clubbing, No cyanosis Skin: No rashes, No breakdown Labs LABS Laboratory Tests Test 05/29/20 07:15 White Blood Count 12.3 x10^3/uL (4.0-11.0) Red Blood Count 4.32 x10^6/uL (4.30-5.70) Hemoglobin 13.4 g/dL (13.0-17.5) Hematocrit 39.4 % (39.0-53.0) Mean Corpuscular Volume 91 fL (79-100) Mean Corpuscular Hemoglobin 31 pg (25-35) Mean Corpuscular Hemoglobin Concent 34 g/dL (31-37) Red Cell Distribution Width 14.1 % (11.5-14.5) Platelet Count 303 x10^3/uL (140-400) Neutrophils (%) (Auto) 86 % (31-73) Lymphocytes (%) (Auto) 6 % (24-48) Monocytes (%) (Auto) 8 % (0-9) Eosinophils (%) (Auto) 0 % (0-3) Basophils (%) (Auto) 0 % (0-3) Neutrophils # (Auto) 10.6 x10^3/uL (1.8-7.7) Lymphocytes # (Auto) 0.7 x10^3/uL (1.0-4.8) Monocytes # (Auto) 1.0 x10^3/uL (0.0-1.1) Eosinophils # (Auto) 0.0 x10^3/uL (0.0-0.7) Basophils # (Auto) 0.0 x10^3/uL (0.0-0.2) D-Dimer (Yulia) 0.98 ug/mlFEU (0.00-0.50) Sodium Level 139 mmol/L (136-145) Potassium Level 3.9 mmol/L (3.5-5.1) Chloride Level 104 mmol/L (98-107) Carbon Dioxide Level 26 mmol/L (21-32) Anion Gap 9 (6-14) Blood Urea Nitrogen 24 mg/dL (8-26) Creatinine 1.0 mg/dL (0.7-1.3) Estimated GFR (Cockcroft-Gault) 82.8 Glucose Level 108 mg/dL (70-99) Calcium Level 8.2 mg/dL (8.5-10.1) Magnesium Level 2.6 mg/dL (1.8-2.4) Ferritin 2522 ng/mL (26-388) Total Bilirubin 0.3 mg/dL (0.2-1.0) Direct Bilirubin 0.2 mg/dL (0.0-0.2) Aspartate Amino Transf (AST/SGOT) 56 U/L (15-37) Alanine Aminotransferase (ALT/SGPT) 63 U/L (16-63) Alkaline Phosphatase 152 U/L (46-116) Lactate Dehydrogenase 410 U/L (85-227) Creatine Kinase 29 U/L (39-308) NO-Lgt-X-Type Natriuretic Peptide 201 pg/mL (0-124) Total Protein 6.6 g/dL (6.4-8.2) Albumin 2.1 g/dL (3.4-5.0) Assessment and Plan Assessmemt and Plan Problems Medical Problems: (1) ARF (acute renal failure) Status: Acute Comment Review of Relevant I have reviewed the following items keyanna (where applicable) has been applied. Labs Laboratory Tests Test 05/27/20 18:59 05/27/20 22:15 05/28/20 08:43 05/28/20 08:45 White Blood Count 15.1 x10^3/uL (4.0-11.0) 15.8 x10^3/uL (4.0-11.0) Red Blood Count 4.67 x10^6/uL (4.30-5.70) 4.76 x10^6/uL (4.30-5.70) Hemoglobin 14.6 g/dL (13.0-17.5) 14.5 g/dL (13.0-17.5) Hematocrit 42.2 % (39.0-53.0) 43.7 % (39.0-53.0) Mean Corpuscular Volume 90 fL (79-100) 92 fL (79-100) Mean Corpuscular Hemoglobin 31 pg (25-35) 31 pg (25-35) Mean Corpuscular Hemoglobin Concent 35 g/dL (31-37) 33 g/dL (31-37) Red Cell Distribution Width 13.6 % (11.5-14.5) 13.8 % (11.5-14.5) Platelet Count 239 x10^3/uL (140-400) 269 x10^3/uL (140-400) Neutrophils (%) (Auto) 93 % (31-73) 95 % (31-73) Lymphocytes (%) (Auto) 4 % (24-48) 3 % (24-48) Monocytes (%) (Auto) 2 % (0-9) 2 % (0-9) Eosinophils (%) (Auto) 0 % (0-3) 0 % (0-3) Basophils (%) (Auto) 0 % (0-3) 0 % (0-3) Neutrophils # (Auto) 14.0 x10^3/uL (1.8-7.7) 15.0 x10^3/uL (1.8-7.7) Lymphocytes # (Auto) 0.7 x10^3/uL (1.0-4.8) 0.5 x10^3/uL (1.0-4.8) Monocytes # (Auto) 0.4 x10^3/uL (0.0-1.1) 0.3 x10^3/uL (0.0-1.1) Eosinophils # (Auto) 0.0 x10^3/uL (0.0-0.7) 0.0 x10^3/uL (0.0-0.7) Basophils # (Auto) 0.1 x10^3/uL (0.0-0.2) 0.0 x10^3/uL (0.0-0.2) Segmented Neutrophils % 59 % (35-66) Band Neutrophils % 33 % (0-9) Lymphocytes % 3 % (24-48) Atypical Lymphocytes % (Manual) 2 % (0-0) Monocytes % 2 % (0-10) Basophils % 1 % (0-3) Platelet Estimate Adequate (ADEQUATE) Sodium Level 132 mmol/L (136-145) 137 mmol/L (136-145) Potassium Level 3.6 mmol/L (3.5-5.1) 3.7 mmol/L (3.5-5.1) Chloride Level 96 mmol/L (98-107) 99 mmol/L (98-107) Carbon Dioxide Level 28 mmol/L (21-32) 27 mmol/L (21-32) Anion Gap 8 (6-14) 11 (6-14) Blood Urea Nitrogen 18 mg/dL (8-26) 20 mg/dL (8-26) Creatinine 1.4 mg/dL (0.7-1.3) 1.0 mg/dL (0.7-1.3) Estimated GFR (Cockcroft-Gault) 56.1 82.8 BUN/Creatinine Ratio 13 (6-20) 20 (6-20) Glucose Level 96 mg/dL (70-99) 141 mg/dL (70-99) Lactic Acid Level 1.4 mmol/L (0.4-2.0) Calcium Level 8.4 mg/dL (8.5-10.1) 8.5 mg/dL (8.5-10.1) Total Bilirubin 0.8 mg/dL (0.2-1.0) 0.4 mg/dL (0.2-1.0) Aspartate Amino Transf (AST/SGOT) 59 U/L (15-37) 58 U/L (15-37) Alanine Aminotransferase (ALT/SGPT) 69 U/L (16-63) 62 U/L (16-63) Alkaline Phosphatase 178 U/L (46-116) 166 U/L (46-116) Total Protein 7.5 g/dL (6.4-8.2) 7.3 g/dL (6.4-8.2) Albumin 2.7 g/dL (3.4-5.0) 2.4 g/dL (3.4-5.0) Albumin/Globulin Ratio 0.6 (1.0-1.7) 0.5 (1.0-1.7) Procalcitonin 1.10 ng/mL (0.00-0.10) Urine Collection Type Unknown Urine Color [place] Urine Clarity Clear Urine pH 5.5 (<5.0-8.0) Urine Specific [place] 1.020 (1.000-1.030) Urine Protein 100 mg/dL (NEG-TRACE) Urine Glucose (UA) Negative mg/dL (NEG) Urine Ketones (Stick) Negative mg/dL (NEG) Urine Blood Negative (NEG) Urine Nitrite Negative (NEG) Urine Bilirubin Negative (NEG) Urine Urobilinogen Dipstick 1.0 mg/dL (0.2 mg/dL) Urine Leukocyte Esterase Negative (NEG) Urine RBC 0 /HPF (0-2) Urine WBC 1-4 /HPF (0-4) Urine Amorphous Sediment Present /HPF Urine Bacteria 0 /HPF (0-FEW) Urine Hyaline Casts Moderate /HPF Urine Granular Casts Moderate /HPF Urine Mucus Mod /LPF D-Dimer (Yulia) 1.37 ug/mlFEU (0.00-0.50) Test 05/29/20 07:15 White Blood Count 12.3 x10^3/uL (4.0-11.0) Red Blood Count 4.32 x10^6/uL (4.30-5.70) Hemoglobin 13.4 g/dL (13.0-17.5) Hematocrit 39.4 % (39.0-53.0) Mean Corpuscular Volume 91 fL (79-100) Mean Corpuscular Hemoglobin 31 pg (25-35) Mean Corpuscular Hemoglobin Concent 34 g/dL (31-37) Red Cell Distribution Width 14.1 % (11.5-14.5) Platelet Count 303 x10^3/uL (140-400) Neutrophils (%) (Auto) 86 % (31-73) Lymphocytes (%) (Auto) 6 % (24-48) Monocytes (%) (Auto) 8 % (0-9) Eosinophils (%) (Auto) 0 % (0-3) Basophils (%) (Auto) 0 % (0-3) Neutrophils # (Auto) 10.6 x10^3/uL (1.8-7.7) Lymphocytes # (Auto) 0.7 x10^3/uL (1.0-4.8) Monocytes # (Auto) 1.0 x10^3/uL (0.0-1.1) Eosinophils # (Auto) 0.0 x10^3/uL (0.0-0.7) Basophils # (Auto) 0.0 x10^3/uL (0.0-0.2) D-Dimer (Yulia) 0.98 ug/mlFEU (0.00-0.50) Sodium Level 139 mmol/L (136-145) Potassium Level 3.9 mmol/L (3.5-5.1) Chloride Level 104 mmol/L (98-107) Carbon Dioxide Level 26 mmol/L (21-32) Anion Gap 9 (6-14) Blood Urea Nitrogen 24 mg/dL (8-26) Creatinine 1.0 mg/dL (0.7-1.3) Estimated GFR (Cockcroft-Gault) 82.8 Glucose Level 108 mg/dL (70-99) Calcium Level 8.2 mg/dL (8.5-10.1) Magnesium Level 2.6 mg/dL (1.8-2.4) Ferritin 2522 ng/mL (26-388) Total Bilirubin 0.3 mg/dL (0.2-1.0) Direct Bilirubin 0.2 mg/dL (0.0-0.2) Aspartate Amino Transf (AST/SGOT) 56 U/L (15-37) Alanine Aminotransferase (ALT/SGPT) 63 U/L (16-63) Alkaline Phosphatase 152 U/L (46-116) Lactate Dehydrogenase 410 U/L (85-227) Creatine Kinase 29 U/L (39-308) JH-Gqe-B-Type Natriuretic Peptide 201 pg/mL (0-124) Total Protein 6.6 g/dL (6.4-8.2) Albumin 2.1 g/dL (3.4-5.0) Laboratory Tests Test 05/29/20 07:15 White Blood Count 12.3 x10^3/uL (4.0-11.0) Red Blood Count 4.32 x10^6/uL (4.30-5.70) Hemoglobin 13.4 g/dL (13.0-17.5) Hematocrit 39.4 % (39.0-53.0) Mean Corpuscular Volume 91 fL (79-100) Mean Corpuscular Hemoglobin 31 pg (25-35) Mean Corpuscular Hemoglobin Concent 34 g/dL (31-37) Red Cell Distribution Width 14.1 % (11.5-14.5) Platelet Count 303 x10^3/uL (140-400) Neutrophils (%) (Auto) 86 % (31-73) Lymphocytes (%) (Auto) 6 % (24-48) Monocytes (%) (Auto) 8 % (0-9) Eosinophils (%) (Auto) 0 % (0-3) Basophils (%) (Auto) 0 % (0-3) Neutrophils # (Auto) 10.6 x10^3/uL (1.8-7.7) Lymphocytes # (Auto) 0.7 x10^3/uL (1.0-4.8) Monocytes # (Auto) 1.0 x10^3/uL (0.0-1.1) Eosinophils # (Auto) 0.0 x10^3/uL (0.0-0.7) Basophils # (Auto) 0.0 x10^3/uL (0.0-0.2) D-Dimer (Yulia) 0.98 ug/mlFEU (0.00-0.50) Sodium Level 139 mmol/L (136-145) Potassium Level 3.9 mmol/L (3.5-5.1) Chloride Level 104 mmol/L (98-107) Carbon Dioxide Level 26 mmol/L (21-32) Anion Gap 9 (6-14) Blood Urea Nitrogen 24 mg/dL (8-26) Creatinine 1.0 mg/dL (0.7-1.3) Estimated GFR (Cockcroft-Gault) 82.8 Glucose Level 108 mg/dL (70-99) Calcium Level 8.2 mg/dL (8.5-10.1) Magnesium Level 2.6 mg/dL (1.8-2.4) Ferritin 2522 ng/mL (26-388) Total Bilirubin 0.3 mg/dL (0.2-1.0) Direct Bilirubin 0.2 mg/dL (0.0-0.2) Aspartate Amino Transf (AST/SGOT) 56 U/L (15-37) Alanine Aminotransferase (ALT/SGPT) 63 U/L (16-63) Alkaline Phosphatase 152 U/L (46-116) Lactate Dehydrogenase 410 U/L (85-227) Creatine Kinase 29 U/L (39-308) UQ-Zvn-N-Type Natriuretic Peptide 201 pg/mL (0-124) Total Protein 6.6 g/dL (6.4-8.2) Albumin 2.1 g/dL (3.4-5.0) Microbiology 05/28/20 Blood Culture - Preliminary, Resulted NO GROWTH AFTER 1 DAY Medications Current Medications Morphine Sulfate (Morphine Sulfate) 4 mg PRN Q15MIN PRN IV/SQ PAIN GREATER THAN 3/10; Start 05/27/20 at 17:45; Stop 05/28/20 at 17:44; Status DC Dexamethasone Sodium Phosphate (Decadron) 10 mg 1X ONCE IV Last administered on 05/27/20at 19:51; Start 05/27/20 at 17:45; Stop 05/27/20 at 17:58; Status DC Ceftriaxone Sodium (Rocephin) 1 gm 1X ONCE IVP Last administered on 05/27/20at 21:24; Start 05/27/20 at 21:00; Stop 05/27/20 at 21:01; Status DC Azithromycin 250 ml @ 250 mls/hr 1X ONCE IV Last administered on 05/27/20at 21:24; Start 05/27/20 at 20:45; Stop 05/27/20 at 21:44; Status DC Ondansetron HCl (Zofran) 4 mg PRN Q4HRS PRN IV NAUSEA/VOMITING 1st choice; Start 05/27/20 at 21:45 Zolpidem Tartrate (Ambien) 5 mg PRN QHS PRN PO INSOMNIA; Start 05/27/20 at 21:45 Acetaminophen (Tylenol) 650 mg PRN Q4HRS PRN PO TEMP OVER 100.4F OR MILD PAIN Last administered on 05/29/20at 12:51; Start 05/27/20 at 21:45 Docusate Sodium (Colace) 100 mg PRN BID PRN PO HARD STOOLS; Start 05/27/20 at 21:45 Enoxaparin Sodium (Lovenox 40mg Syringe) 40 mg BID SQ Last administered on 05/29/20at 08:32; Start 05/27/20 at 22:00 Zinc Sulfate (Orazinc) 220 mg DAILY PO Last administered on 05/29/20at 08:32; Start 05/27/20 at 22:00 Guaifenesin (Robitussin Dm) 10 ml PRN Q6HRS PRN PO COUGH 1ST CHOICE Last administered on 05/29/20at 08:32; Start 05/27/20 at 21:45 Ceftriaxone Sodium (Rocephin) 1 gm QHS IVP Last administered on 05/28/20at 21:09; Start 05/28/20 at 21:00 Azithromycin (Zithromax) 250 mg DAILY PO Last administered on 05/29/20at 08:32; Start 05/28/20 at 09:00; Stop 05/31/20 at 09:01 Dexamethasone Sodium Phosphate (Decadron) 6 mg DAILY07 IVP Last administered on 05/29/20at 06:55; Start 05/28/20 at 07:00 Sodium Chloride 1,000 ml @ 125 mls/hr 1X ONCE IV Last administered on 05/27at 22:03; Start 05/27/20 at 22:00; Stop 05/28/20 at 05:59; Status DC Remdesivir 200 mg/ Sodium Chloride 210 ml @ 210 mls/hr 1X ONCE IV Last administered on 05/27/20at 23:11; Start 05/27/20 at 23:00; Stop 05/27/20 at 23:59; Status DC Remdesivir 100 mg/ Sodium Chloride 230 ml @ 460 mls/hr Q24H IV Last administered on 05/28/20at 21:29; Start 05/28/20 at 22:00; Stop 05/31/20 at 22:29 Ondansetron HCl (Zofran) 4 mg PRN Q8HRS PRN IV NAUSEA/VOMITING; Start 05/27/20 at 23:15; Stop 05/27/20 at 23:12; Status DC Morphine Sulfate (Morphine Sulfate) 2 mg PRN Q2HR PRN IV SEVERE PAIN 7-10; Start 05/27/20 at 23:15; Stop 05/28/20 at 23:14; Status DC Acetaminophen (Tylenol) 650 mg PRN Q4HRS PRN PO FEVER > 100.3'F; Start 05/27/20 at 23:15; Stop 05/27/20 at 23:12; Status DC Sterile Water (WATER for RESP) 1,000 ml CONT PRN INH VIA VAPOTHERM DEVICE Last administered on 05/29/20at 07:39; Start 05/28/20 at 08:45 Sodium Chloride 1,000 ml @ 75 mls/hr [id number] IV Last administered on 05/29/20at 12:51; Start 05/28/20 at 10:00 Glycerin/ Hypromellose/ Polyethylene (Artificial Tears) 1 drop PRN Q15MIN PRN OU DRY EYE; Start 05/29/20 at 09:00 Ascorbic Acid (Vitamin C) 1,000 mg DAILY PO Last administered on 05/29/20at 12:51; Start 05/29/20 at 12:00 Vitamin B Complex/ Vitamin C (Janeth-Tamiko) 1 tab DAILY PO Last administered on 05/29/20at 12:51; Start 05/29/20 at 12:00 Lactobacillus Rhamnosus (Culturelle) 1 cap BID PO ; Start 05/29/20 at 21:00 Vitals/I & O Vital Sign - Last 24 Hours 05/28/20 05/28/20 05/28/20 05/28/20 15:00 16:00 16:00 16:06 Temp 100.2 100.2 Pulse 83 74 Resp 28 26 B/P (MAP) 115/72 (86) 115/72 (86) Pulse Ox 91 92 92 O2 Delivery High Flow Nasal Cannula Nasal Cannula High Flow Nasal Cannula VapoTherm O2 Flow Rate 30.0 30.0 30.0 30.0 05/28/20 05/28/20 05/28/20 05/28/20 17:00 19:00 20:00 20:00 Temp 99.1 99.1 Pulse 72 76 72 Resp 24 26 24 B/P (MAP) 111/64 (80) 111/69 (83) 107/68 (81) Pulse Ox 98 95 95 O2 Delivery High Flow Nasal Cannula Vapotherm High Flow Nasal Cannula Nasal Cannula O2 Flow Rate 30.0 30.0 30.0 30.0 1/19/21 1/19/21 1/19/21 1/19/21 20:18 21:00 22:00 23:00 Pulse 66 66 62 Resp 20 20 20 B/P (MAP) 101/59 (73) 108/60 (76) 97/55 (69) Pulse Ox 96 97 97 96 O2 Delivery VapoTherm High Flow Nasal Cannula High Flow Nasal Cannula High Flow Nasal Cannula O2 Flow Rate 30.0 30.0 30.0 30.0 05/28/20 05/29/20 05/29/20 05/29/20 23:50 00:00 00:00 01:00 Temp 98.0 98.0 Pulse 63 54 Resp 20 B/P (MAP) 100/56 (71) 105/60 (75) Pulse Ox 97 98 97 O2 Delivery VapoTherm High Flow Nasal Cannula Nasal Cannula High Flow Nasal Cannula O2 Flow Rate 30.0 30.0 30.0 30.0 05/29/20 05/29/20 05/29/20 05/29/20 02:00 03:00 03:48 04:00 Pulse 55 70 Resp 18 18 B/P (MAP) 97/56 (70) 110/65 (80) Pulse Ox 98 98 98 O2 Delivery High Flow Nasal Cannula High Flow Nasal Cannula VapoTherm Nasal Cannula O2 Flow Rate 30.0 30.0 30.0 30.0 05/29/20 05/29/20 05/29/20 05/29/20 04:00 05:00 06:00 07:00 Temp 99.3 98.5 99.3 98.5 Pulse 65 62 65 81 Resp 22 22 B/P (MAP) 120/78 (92) 107/65 (79) 110/66 (81) 111/63 (79) Pulse Ox 98 95 95 92 O2 Delivery High Flow Nasal Cannula High Flow Nasal Cannula High Flow Nasal Cannula Nasal Cannula O2 Flow Rate 30.0 30.0 30.0 30.0 05/29/20 05/29/20 05/29/20 05/29/20 08:00 08:00 09:00 09:04 Pulse 68 68 Resp 22 B/P (MAP) 118/68 (85) 126/73 (90) Pulse Ox 93 91 91 O2 Delivery Nasal Cannula High Flow Nasal Cannula High Flow Nasal Cannula VapoTherm O2 Flow Rate 30.0 30.0 30.0 30.0 05/29/20 05/29/20 05/29/20 05/29/20 10:00 11:00 12:00 12:00 Temp 99.0 99.0 Pulse 78 81 76 Resp B/P (MAP) 119/67 (84) 116/63 (80) 120/68 (85) Pulse Ox 94 95 93 O2 Delivery High Flow Nasal Cannula Nasal Cannula Nasal Cannula Nasal Cannula O2 Flow Rate 30.0 30.0 30.0 30.0 Intake and Output 05/28/20 05/28/20 05/29/20 15:00 23:00 07:00 Intake Total 240 ml 841.6 ml 830 ml Output Total 300 ml 250 ml 250 ml Balance -60 ml 591.6 ml 580 ml Justicifation of Admission Dx: Justifications for Admission: Justification of Admission Dx: Yes (COVID, hypoxia, ) DAYANA ROBBINS MD May 29, 2020 14:01
--- NOTE | 2020-05-29 14:41 | NUR ---
SS following for discharge planning. SS reviewed pt chart and discussed with pt RN. Pt is from home with family and is currently on Vapotherm at 100%. COVID19 positive. Pt on IV Rocephin and IV Remdesivir. Self pay. Pt is Portuguese speaking only. [employer] spoke with pt over the phone and provided a packet for pt to complete. SS will continue to follow for discharge planning.
[2020-05-29] MEDS: cefTRIAXone IV Push 1 GM VIAL. IVP SCH (21:33)
[2020-05-29] MEDS: LACTOBACILLUS RHAMNOSUS GG 1 CAPSULE. PO SCH (21:33)
[2020-05-29] MEDS: REMDESIVIR 100mg in NORMAL SALINE 250ML X 4 DAYS IV SCH (21:34)
[2020-05-30] VITALS (24 sets, daily range): BP systolic 106–136; BP diastolic 59–80
[2020-05-30] MEDS: IV NORMAL SALINE 1000ML BAG 1,000 ML IV SCH ×2 (02:00→15:39)
[2020-05-30] MEDS: ACETAMINOPHEN 325 MG TABLET. PO PRN ×2 (02:47→07:57)
[2020-05-30] MEDS: DEXAMETHASONE SOD PHOS 4 MG/ML VIAL IVP SCH (07:57)
[2020-05-30] MEDS: LACTOBACILLUS RHAMNOSUS GG 1 CAPSULE. PO SCH ×2 (07:57→20:03)
[2020-05-30] MEDS: FOLIC/VIT B COMP W-C (RENAL) TABLET. PO SCH (07:57)
[2020-05-30] MEDS: ASCORBIC ACID 1,000 MG TABLET PO SCH (07:57)
[2020-05-30] MEDS: STERILE WATER for RESP 1,000 ML BAG. INH PRN (07:57)
[2020-05-30] MEDS: ENOXAPARIN 40 MG/0.4 ML SYRINGE. SQ SCH ×2 (07:58→20:03)
[2020-05-30] MEDS: AZITHROMYCIN 250 MG TABLET. PO SCH (07:58)
[2020-05-30] MEDS: ZINC SULFATE 220 MG CAPSULE. PO SCH (07:58)
[2020-05-30 08:40] LABS: BASO % 0 % (0-3); EOS % 0 % (0-3); HEMATOCRIT 40.2 % (39.0-53.0); HEMOGLOBIN 13.9 g/dL (13.0-17.5); LYMPH # 1.1 x10^3/uL (1.0-4.8); LYMPH % 14 % (24-48); MEAN CORPUSCULAR HEMOGLOBIN 32 pg (25-35); MEAN CORPUSCULAR HGB CONC 35 g/dL (31-37); MEAN CORPUSCULAR VOLUME 91 fL (79-100); MONO # 1.3 x10^3/uL (0.0-1.1); MONO % 16 % (0-9); NEUT # 5.8 x10^3/uL (1.8-7.7); NEUT % 70 % (31-73); PLATELET COUNT 372 x10^3/uL (140-400); RED CELL DISTRIBUTION WIDTH 14.1 % (11.5-14.5); WHITE BLOOD COUNT 8.2 x10^3/uL (4.0-11.0)
[2020-05-30] MEDS ORDERED: CALCIUM CARBONATE 500 MG TAB.CHEW PO PRN (08:45)
[2020-05-30] MEDS ORDERED: MAALOX:LIDO:APAP 6:2:1 ORAL SUSPENSION 180 ML BOTTLE. PO ONE (08:45)
[2020-05-30] MEDS ORDERED: FAMOTIDINE 20 MG/2 ML VIAL IVP ONE (08:45)
[2020-05-30] MEDS ORDERED: POLYETHYLENE GLYCOL 3350 17 GM PACKET. PO PRN (08:45)
[2020-05-30 08:58] LABS: CALCIUM 8.5 mg/dL (8.5-10.1); CREATININE 1.1 mg/dL (0.7-1.3); GFR 74.1; POTASSIUM 4.1 mmol/L (3.5-5.1)
--- NOTE | 2020-05-30 10:22 | NUR ---
SS following up with discharge planning. SS reviewed pt chart and discussed with pt RN. Pt is currently on Vapotherm. COVID19 positive. Pt on IV Remdesivir and IV Rocephin. SS will continue to follow for discharge planning.
--- NOTE | 2020-05-30 10:27 | PDOC ---
PULMONARY PROGRESS NOTES DATE: 05/30/20 TIME: 10:25 Subjective remains on vapotherm 95%FIO2 Vitals Vital Signs Date Time Temp Pulse Resp B/P (MAP) Pulse Ox O2 Delivery O2 Flow Rate FiO2 05/30/20 10:00 66 30 136/80 (98) 97 Nasal Cannula 30.0 05/30/20 07:00 99.6 99.6 Comments visual exam done no resp distress General: Alert, No acute distress Labs Laboratory Tests Test 05/29/20 07:15 05/30/20 08:10 White Blood Count 12.3 x10^3/uL (4.0-11.0) 8.2 x10^3/uL (4.0-11.0) Red Blood Count 4.32 x10^6/uL (4.30-5.70) 4.40 x10^6/uL (4.30-5.70) Hemoglobin 13.4 g/dL (13.0-17.5) 13.9 g/dL (13.0-17.5) Hematocrit 39.4 % (39.0-53.0) 40.2 % (39.0-53.0) Mean Corpuscular Volume 91 fL (79-100) 91 fL (79-100) Mean Corpuscular Hemoglobin 31 pg (25-35) 32 pg (25-35) Mean Corpuscular Hemoglobin Concent 34 g/dL (31-37) 35 g/dL (31-37) Red Cell Distribution Width 14.1 % (11.5-14.5) 14.1 % (11.5-14.5) Platelet Count 303 x10^3/uL (140-400) 372 x10^3/uL (140-400) Neutrophils (%) (Auto) 86 % (31-73) 70 % (31-73) Lymphocytes (%) (Auto) 6 % (24-48) 14 % (24-48) Monocytes (%) (Auto) 8 % (0-9) 16 % (0-9) Eosinophils (%) (Auto) 0 % (0-3) 0 % (0-3) Basophils (%) (Auto) 0 % (0-3) 0 % (0-3) Neutrophils # (Auto) 10.6 x10^3/uL (1.8-7.7) 5.8 x10^3/uL (1.8-7.7) Lymphocytes # (Auto) 0.7 x10^3/uL (1.0-4.8) 1.1 x10^3/uL (1.0-4.8) Monocytes # (Auto) 1.0 x10^3/uL (0.0-1.1) 1.3 x10^3/uL (0.0-1.1) Eosinophils # (Auto) 0.0 x10^3/uL (0.0-0.7) 0.0 x10^3/uL (0.0-0.7) Basophils # (Auto) 0.0 x10^3/uL (0.0-0.2) 0.0 x10^3/uL (0.0-0.2) D-Dimer (Yulia) 0.98 ug/mlFEU (0.00-0.50) Sodium Level 139 mmol/L (136-145) 142 mmol/L (136-145) Potassium Level 3.9 mmol/L (3.5-5.1) 4.1 mmol/L (3.5-5.1) Chloride Level 104 mmol/L (98-107) 106 mmol/L (98-107) Carbon Dioxide Level 26 mmol/L (21-32) 26 mmol/L (21-32) Anion Gap 9 (6-14) 10 (6-14) Blood Urea Nitrogen 24 mg/dL (8-26) 21 mg/dL (8-26) Creatinine 1.0 mg/dL (0.7-1.3) 1.1 mg/dL (0.7-1.3) Estimated GFR (Cockcroft-Gault) 82.8 74.1 Glucose Level 108 mg/dL (70-99) 89 mg/dL (70-99) Calcium Level 8.2 mg/dL (8.5-10.1) 8.5 mg/dL (8.5-10.1) Magnesium Level 2.6 mg/dL (1.8-2.4) Ferritin 2522 ng/mL (26-388) Total Bilirubin 0.3 mg/dL (0.2-1.0) Direct Bilirubin 0.2 mg/dL (0.0-0.2) Aspartate Amino Transf (AST/SGOT) 56 U/L (15-37) Alanine Aminotransferase (ALT/SGPT) 63 U/L (16-63) Alkaline Phosphatase 152 U/L (46-116) Lactate Dehydrogenase 410 U/L (85-227) Creatine Kinase 29 U/L (39-308) ES-Mgz-Z-Type Natriuretic Peptide 201 pg/mL (0-124) Total Protein 6.6 g/dL (6.4-8.2) Albumin 2.1 g/dL (3.4-5.0) Laboratory Tests Test 05/30/20 08:10 White Blood Count 8.2 x10^3/uL (4.0-11.0) Red Blood Count 4.40 x10^6/uL (4.30-5.70) Hemoglobin 13.9 g/dL (13.0-17.5) Hematocrit 40.2 % (39.0-53.0) Mean Corpuscular Volume 91 fL (79-100) Mean Corpuscular Hemoglobin 32 pg (25-35) Mean Corpuscular Hemoglobin Concent 35 g/dL (31-37) Red Cell Distribution Width 14.1 % (11.5-14.5) Platelet Count 372 x10^3/uL (140-400) Neutrophils (%) (Auto) 70 % (31-73) Lymphocytes (%) (Auto) 14 % (24-48) Monocytes (%) (Auto) 16 % (0-9) Eosinophils (%) (Auto) 0 % (0-3) Basophils (%) (Auto) 0 % (0-3) Neutrophils # (Auto) 5.8 x10^3/uL (1.8-7.7) Lymphocytes # (Auto) 1.1 x10^3/uL (1.0-4.8) Monocytes # (Auto) 1.3 x10^3/uL (0.0-1.1) Eosinophils # (Auto) 0.0 x10^3/uL (0.0-0.7) Basophils # (Auto) 0.0 x10^3/uL (0.0-0.2) Sodium Level 142 mmol/L (136-145) Potassium Level 4.1 mmol/L (3.5-5.1) Chloride Level 106 mmol/L (98-107) Carbon Dioxide Level 26 mmol/L (21-32) Anion Gap 10 (6-14) Blood Urea Nitrogen 21 mg/dL (8-26) Creatinine 1.1 mg/dL (0.7-1.3) Estimated GFR (Cockcroft-Gault) 74.1 Glucose Level 89 mg/dL (70-99) Calcium Level 8.5 mg/dL (8.5-10.1) Impression . 1. Acute hypoxic respiratory failure secondary to acute respiratory distress syndrome and acute lung injury from COVID-19 viral pneumonia. 2. COVID-19 viral pneumonia. 3. Abnormal chest x-ray with bilateral patchy infiltrates consistent with COVID-19 pneumonia. Cannot exclude superimposed bacterial pneumonia. 4. Abnormal liver function test secondary to COVID-19. 5. Increased procalcitonin. Likely superimposed bacterial pneumonia. 6. Hyponatremia. 7. Acute kidney injury. Plan . 1. Continue high flow oxygen Vapotherm./95%FIO2 2. Closely watch for his oxygenation. 3. Remdesivir has been initiated and will continue 5 day course 4. Continue dexamethasone. 5. Empiric antibiotics. 6. High dose DVT prophylaxis. 7. D-dimer.trending down 8. Cough suppressant. 9. Discussed with RN. We will follow along with you. SUELLEN BLANCO MD May 30, 2020 10:27
[2020-05-30 12:58] LABS: % ATYL 4 % (0-0); % BANDS 6 % (0-9); % LYMPHS 11 % (24-48); % METAS 1 % (0-0); % MONOS 10 % (0-10); % MYELOS 4 % (0-0); % SEGS 64 % (35-66); PLT ESTIMATE ADEQUATE (ADEQUATE); TOXIC GRANULATION MOD; TOXIC VACUOLATION SLIGHT
--- NOTE | 2020-05-30 13:48 | PDOC ---
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 Labs and imaging consistent with COVID-19 infection. Patient initiated on remdesivir; will follow LFTs Rocephin and azithromycin; IV steroids, full vitamin panel restart GERD meds, he takes as outpatient, pain today, poor PO intake, Vitals Vitals Vital Signs Date Time Temp Pulse Resp B/P (MAP) Pulse Ox O2 Delivery O2 Flow Rate FiO2 05/30/20 13:10 70 28 119/73 (88) 97 Nasal Cannula 30.0 05/30/20 11:10 99.8 99.8 Physical Exam General: Alert, Oriented X3, Cooperative, No acute distress Heart: Regular rate, Normal S1 Abdomen: Normal bowel sounds, Soft Extremities: No clubbing, No cyanosis Skin: No rashes, No breakdown Labs LABS Laboratory Tests Test 05/30/20 08:10 White Blood Count 8.2 x10^3/uL (4.0-11.0) Red Blood Count 4.40 x10^6/uL (4.30-5.70) Hemoglobin 13.9 g/dL (13.0-17.5) Hematocrit 40.2 % (39.0-53.0) Mean Corpuscular Volume 91 fL (79-100) Mean Corpuscular Hemoglobin 32 pg (25-35) Mean Corpuscular Hemoglobin Concent 35 g/dL (31-37) Red Cell Distribution Width 14.1 % (11.5-14.5) Platelet Count 372 x10^3/uL (140-400) Neutrophils (%) (Auto) 70 % (31-73) Lymphocytes (%) (Auto) 14 % (24-48) Monocytes (%) (Auto) 16 % (0-9) Eosinophils (%) (Auto) 0 % (0-3) Basophils (%) (Auto) 0 % (0-3) Neutrophils # (Auto) 5.8 x10^3/uL (1.8-7.7) Lymphocytes # (Auto) 1.1 x10^3/uL (1.0-4.8) Monocytes # (Auto) 1.3 x10^3/uL (0.0-1.1) Eosinophils # (Auto) 0.0 x10^3/uL (0.0-0.7) Basophils # (Auto) 0.0 x10^3/uL (0.0-0.2) Segmented Neutrophils % 64 % (35-66) Band Neutrophils % 6 % (0-9) Lymphocytes % 11 % (24-48) Atypical Lymphocytes % (Manual) 4 % (0-0) Monocytes % 10 % (0-10) Metamyelocytes % 1 % (0-0) Myelocytes % 4 % (0-0) Toxic Granulation Mod Toxic Vacuolation Slight Platelet Estimate Adequate (ADEQUATE) Sodium Level 142 mmol/L (136-145) Potassium Level 4.1 mmol/L (3.5-5.1) Chloride Level 106 mmol/L (98-107) Carbon Dioxide Level 26 mmol/L (21-32) Anion Gap 10 (6-14) Blood Urea Nitrogen 21 mg/dL (8-26) Creatinine 1.1 mg/dL (0.7-1.3) Estimated GFR (Cockcroft-Gault) 74.1 Glucose Level 89 mg/dL (70-99) Calcium Level 8.5 mg/dL (8.5-10.1) Assessment and Plan Assessmemt and Plan Problems Medical Problems: (1) ARF (acute renal failure) Status: Acute Comment Review of Relevant I have reviewed the following items keyanna (where applicable) has been applied. Labs Laboratory Tests Test 05/29/20 07:15 05/30/20 08:10 White Blood Count 12.3 x10^3/uL (4.0-11.0) 8.2 x10^3/uL (4.0-11.0) Red Blood Count 4.32 x10^6/uL (4.30-5.70) 4.40 x10^6/uL (4.30-5.70) Hemoglobin 13.4 g/dL (13.0-17.5) 13.9 g/dL (13.0-17.5) Hematocrit 39.4 % (39.0-53.0) 40.2 % (39.0-53.0) Mean Corpuscular Volume 91 fL (79-100) 91 fL (79-100) Mean Corpuscular Hemoglobin 31 pg (25-35) 32 pg (25-35) Mean Corpuscular Hemoglobin Concent 34 g/dL (31-37) 35 g/dL (31-37) Red Cell Distribution Width 14.1 % (11.5-14.5) 14.1 % (11.5-14.5) Platelet Count 303 x10^3/uL (140-400) 372 x10^3/uL (140-400) Neutrophils (%) (Auto) 86 % (31-73) 70 % (31-73) Lymphocytes (%) (Auto) 6 % (24-48) 14 % (24-48) Monocytes (%) (Auto) 8 % (0-9) 16 % (0-9) Eosinophils (%) (Auto) 0 % (0-3) 0 % (0-3) Basophils (%) (Auto) 0 % (0-3) 0 % (0-3) Neutrophils # (Auto) 10.6 x10^3/uL (1.8-7.7) 5.8 x10^3/uL (1.8-7.7) Lymphocytes # (Auto) 0.7 x10^3/uL (1.0-4.8) 1.1 x10^3/uL (1.0-4.8) Monocytes # (Auto) 1.0 x10^3/uL (0.0-1.1) 1.3 x10^3/uL (0.0-1.1) Eosinophils # (Auto) 0.0 x10^3/uL (0.0-0.7) 0.0 x10^3/uL (0.0-0.7) Basophils # (Auto) 0.0 x10^3/uL (0.0-0.2) 0.0 x10^3/uL (0.0-0.2) D-Dimer (Yulia) 0.98 ug/mlFEU (0.00-0.50) Sodium Level 139 mmol/L (136-145) 142 mmol/L (136-145) Potassium Level 3.9 mmol/L (3.5-5.1) 4.1 mmol/L (3.5-5.1) Chloride Level 104 mmol/L (98-107) 106 mmol/L (98-107) Carbon Dioxide Level 26 mmol/L (21-32) 26 mmol/L (21-32) Anion Gap 9 (6-14) 10 (6-14) Blood Urea Nitrogen 24 mg/dL (8-26) 21 mg/dL (8-26) Creatinine 1.0 mg/dL (0.7-1.3) 1.1 mg/dL (0.7-1.3) Estimated GFR (Cockcroft-Gault) 82.8 74.1 Glucose Level 108 mg/dL (70-99) 89 mg/dL (70-99) Calcium Level 8.2 mg/dL (8.5-10.1) 8.5 mg/dL (8.5-10.1) Magnesium Level 2.6 mg/dL (1.8-2.4) Ferritin 2522 ng/mL (26-388) Total Bilirubin 0.3 mg/dL (0.2-1.0) Direct Bilirubin 0.2 mg/dL (0.0-0.2) Aspartate Amino Transf (AST/SGOT) 56 U/L (15-37) Alanine Aminotransferase (ALT/SGPT) 63 U/L (16-63) Alkaline Phosphatase 152 U/L (46-116) Lactate Dehydrogenase 410 U/L (85-227) Creatine Kinase 29 U/L (39-308) EL-Xjr-T-Type Natriuretic Peptide 201 pg/mL (0-124) Total Protein 6.6 g/dL (6.4-8.2) Albumin 2.1 g/dL (3.4-5.0) Segmented Neutrophils % 64 % (35-66) Band Neutrophils % 6 % (0-9) Lymphocytes % 11 % (24-48) Atypical Lymphocytes % (Manual) 4 % (0-0) Monocytes % 10 % (0-10) Metamyelocytes % 1 % (0-0) Myelocytes % 4 % (0-0) Toxic Granulation Mod Toxic Vacuolation Slight Platelet Estimate Adequate (ADEQUATE) Laboratory Tests Test 05/30/20 08:10 White Blood Count 8.2 x10^3/uL (4.0-11.0) Red Blood Count 4.40 x10^6/uL (4.30-5.70) Hemoglobin 13.9 g/dL (13.0-17.5) Hematocrit 40.2 % (39.0-53.0) Mean Corpuscular Volume 91 fL (79-100) Mean Corpuscular Hemoglobin 32 pg (25-35) Mean Corpuscular Hemoglobin Concent 35 g/dL (31-37) Red Cell Distribution Width 14.1 % (11.5-14.5) Platelet Count 372 x10^3/uL (140-400) Neutrophils (%) (Auto) 70 % (31-73) Lymphocytes (%) (Auto) 14 % (24-48) Monocytes (%) (Auto) 16 % (0-9) Eosinophils (%) (Auto) 0 % (0-3) Basophils (%) (Auto) 0 % (0-3) Neutrophils # (Auto) 5.8 x10^3/uL (1.8-7.7) Lymphocytes # (Auto) 1.1 x10^3/uL (1.0-4.8) Monocytes # (Auto) 1.3 x10^3/uL (0.0-1.1) Eosinophils # (Auto) 0.0 x10^3/uL (0.0-0.7) Basophils # (Auto) 0.0 x10^3/uL (0.0-0.2) Segmented Neutrophils % 64 % (35-66) Band Neutrophils % 6 % (0-9) Lymphocytes % 11 % (24-48) Atypical Lymphocytes % (Manual) 4 % (0-0) Monocytes % 10 % (0-10) Metamyelocytes % 1 % (0-0) Myelocytes % 4 % (0-0) Toxic Granulation Mod Toxic Vacuolation Slight Platelet Estimate Adequate (ADEQUATE) Sodium Level 142 mmol/L (136-145) Potassium Level 4.1 mmol/L (3.5-5.1) Chloride Level 106 mmol/L (98-107) Carbon Dioxide Level 26 mmol/L (21-32) Anion Gap 10 (6-14) Blood Urea Nitrogen 21 mg/dL (8-26) Creatinine 1.1 mg/dL (0.7-1.3) Estimated GFR (Cockcroft-Gault) 74.1 Glucose Level 89 mg/dL (70-99) Calcium Level 8.5 mg/dL (8.5-10.1) Microbiology 05/28/20 Blood Culture - Preliminary, Resulted NO GROWTH AFTER 2 DAYS Medications Current Medications Morphine Sulfate (Morphine Sulfate) 4 mg PRN Q15MIN PRN IV/SQ PAIN GREATER THAN 3/10; Start 05/27/20 at 17:45; Stop 05/28/20 at 17:44; Status DC Dexamethasone Sodium Phosphate (Decadron) 10 mg 1X ONCE IV Last administered on 05/27/20at 19:51; Start 05/27/20 at 17:45; Stop 05/27/20 at 17:58; Status DC Ceftriaxone Sodium (Rocephin) 1 gm 1X ONCE IVP Last administered on 05/27/20at 21:24; Start 05/27/20 at 21:00; Stop 05/27/20 at 21:01; Status DC Azithromycin 250 ml @ 250 mls/hr 1X ONCE IV Last administered on 05/27/20at 21:24; Start 05/27/20 at 20:45; Stop 05/27/20 at 21:44; Status DC Ondansetron HCl (Zofran) 4 mg PRN Q4HRS PRN IV NAUSEA/VOMITING 1st choice; Start 05/27/20 at 21:45 Zolpidem Tartrate (Ambien) 5 mg PRN QHS PRN PO INSOMNIA; Start 05/27/20 at 21:45 Acetaminophen (Tylenol) 650 mg PRN Q4HRS PRN PO TEMP OVER 100.4F OR MILD PAIN Last administered on 05/30/20at 07:57; Start 05/27/20 at 21:45 Docusate Sodium (Colace) 100 mg PRN BID PRN PO HARD STOOLS; Start 05/27/20 at 21:45 Enoxaparin Sodium (Lovenox 40mg Syringe) 40 mg BID SQ Last administered on 05/30/20at 07:58; Start 05/27/20 at 22:00 Zinc Sulfate (Orazinc) 220 mg DAILY PO Last administered on 05/30/20at 07:58; Start 05/27/20 at 22:00 Guaifenesin (Robitussin Dm) 10 ml PRN Q6HRS PRN PO COUGH 1ST CHOICE Last administered on 05/29/20at 08:32; Start 05/27/20 at 21:45 Ceftriaxone Sodium (Rocephin) 1 gm QHS IVP Last administered on 05/29/20at 21:33; Start 05/28/20 at 21:00 Azithromycin (Zithromax) 250 mg DAILY PO Last administered on 05/30/20at 07:58; Start 05/28/20 at 09:00; Stop 05/31/20 at 09:01 Dexamethasone Sodium Phosphate (Decadron) 6 mg DAILY07 IVP Last administered on 05/30/20at 07:57; Start 05/28/20 at 07:00 Sodium Chloride 1,000 ml @ 125 mls/hr 1X ONCE IV Last administered on 05/27/20at 22:03; Start 05/27/20 at 22:00; Stop 05/28/20 at 05:59; Status DC Remdesivir 200 mg/ Sodium Chloride 210 ml @ 210 mls/hr 1X ONCE IV Last administered on 05/27/20at 23:11; Start 05/27/20 at 23:00; Stop 05/27/20 at 23:59; Status DC Remdesivir 100 mg/ Sodium Chloride 230 ml @ 460 mls/hr Q24H IV Last administered on 05/29/20at 21:34; Start 05/28/20 at 22:00; Stop 05/31/20 at 22:29 Ondansetron HCl (Zofran) 4 mg PRN Q8HRS PRN IV NAUSEA/VOMITING; Start 05/27/20 at 23:15; Stop 05/27/20 at 23:12; Status DC Morphine Sulfate (Morphine Sulfate) 2 mg PRN Q2HR PRN IV SEVERE PAIN 7-10; Start 05/27/20 at 23:15; Stop 05/28/20 at 23:14; Status DC Acetaminophen (Tylenol) 650 mg PRN Q4HRS PRN PO FEVER > 100.3'F; Start 05/27/20 at 23:15; Stop 05/27/20 at 23:12; Status DC Sterile Water (WATER for RESP) 1,000 ml CONT PRN INH VIA VAPOTHERM DEVICE Last administered on 05/30/20at 07:57; Start 05/28/20 at 08:45 Sodium Chloride 1,000 ml @ 75 mls/hr [id number] IV Last administered on 05/30/20at 02:00; Start 05/28/20 at 10:00 Glycerin/ Hypromellose/ Polyethylene (Artificial Tears) 1 drop PRN Q15MIN PRN OU DRY EYE; Start 05/29/20 at 09:00 Ascorbic Acid (Vitamin C) 1,000 mg DAILY PO Last administered on 05/30/20at 07:57; Start 05/29/20 at 12:00 Vitamin B Complex/ Vitamin C (Janeth-Tamiko) 1 tab DAILY PO Last administered on 05/30/20at 07:57; Start 05/29/20 at 12:00 Lactobacillus Rhamnosus (Culturelle) 1 cap BID PO Last administered on 05/30/20at 07:57; Start 05/29/20 at 21:00 Multi-Ingredient Mouthwash/Gargle (Velvet Glove Oral Susp) 10 ml 1X ONCE PO Last administered on 05/30/20at 09:23; Start 05/30/20 at 08:45; Stop 05/30/20 at 08:46; Status DC Famotidine (Pepcid) 20 mg BID PO ; Start 05/30/20 at 21:00 Famotidine (Pepcid Vial) 20 mg 1X ONCE IVP Last administered on 05/30/20at 09:2 3; Start 05/30/20 at 08:45; Stop 05/30/20 at 08:46; Status DC Calcium Carbonate/ Glycine (Tums) 500 mg PRN AFTMEALHC PRN PO INDIGESTION; Start 05/30/20 at 08:45 Polyethylene Glycol (miraLAX PACKET) 17 gm PRN DAILY PRN PO CONSTIPATION; Start 05/30/20 at 08:45 Vitals/I & O Vital Sign - Last 24 Hours 05/29/20 05/29/20 05/29/20 05/29/20 14:00 14:48 15:00 16:00 Pulse 68 73 Resp 22 22 B/P (MAP) 119/64 (82) 123/86 (98) Pulse Ox 92 97 92 O2 Delivery Nasal Cannula VapoTherm Nasal Cannula Nasal Cannula O2 Flow Rate 30.0 30.0 30.0 30.0 05/29/20 05/29/20 05/29/20 05/29/20 16:00 17:00 18:00 19:00 Temp 99.1 98.3 99.1 98.3 Pulse 62 76 75 74 Resp 24 20 20 20 B/P (MAP) 125/65 (85) 126/70 (88) 129/72 (91) 123/71 (88) Pulse Ox 94 92 92 94 O2 Delivery Nasal Cannula Nasal Cannula Nasal Cannula Nasal Cannula O2 Flow Rate 30.0 30.0 30.0 30.0 05/29/20 05/29/20 05/29/20 05/29/20 20:00 20:00 20:45 21:00 Pulse 80 73 Resp 30 30 B/P (MAP) 127/69 (88) 125/70 (88) Pulse Ox 93 95 92 O2 Delivery Nasal Cannula Nasal Cannula VapoTherm Nasal Cannula O2 Flow Rate 30.0 30.0 30.0 30.0 05/29/20 05/29/20 05/30/20 05/30/20 22:00 23:00 00:00 00:00 Temp 99.1 99.1 Pulse 68 78 59 Resp 26 30 32 B/P (MAP) 126/70 (88) 121/71 (88) 121/69 (86) Pulse Ox 95 93 97 O2 Delivery Nasal Cannula Nasal Cannula Nasal Cannula Nasal Cannula O2 Flow Rate 30.0 30.0 30.0 30.0 05/30/20 05/30/20 05/30/20 05/30/20 00:46 01:00 02:00 03:00 Temp 99.4 99.4 Pulse 61 57 80 Resp 27 32 30 B/P (MAP) 123/74 (90) 113/70 (84) 123/70 (87) Pulse Ox 98 97 98 92 O2 Delivery High Flow Nasal Cannula Nasal Cannula Nasal Cannula Nasal Cannula O2 Flow Rate 30.0 30.0 30.0 30.0 05/30/20 05/30/20 05/30/20 05/30/20 04:00 04:00 05:00 06:00 Pulse 65 66 62 Resp 28 28 30 B/P (MAP) 106/59 (75) 114/62 (79) 114/70 (85) Pulse Ox 96 96 98 O2 Delivery Nasal Cannula Nasal Cannula Nasal Cannula Nasal Cannula O2 Flow Rate 30.0 30.0 30.0 30.0 05/30/20 05/30/20 05/30/20 05/30/20 07:00 07:44 08:00 08:00 Temp 99.6 99.6 Pulse 81 96 Resp 30 28 B/P (MAP) 122/72 (89) 131/73 (92) Pulse Ox 98 95 91 O2 Delivery Nasal Cannula VAPOTHERM Nasal Cannula Nasal Cannula O2 Flow Rate 30.0 30.0 30.0 30.0 05/30/20 05/30/20 05/30/20 05/30/20 09:00 10:00 11:05 11:10 Temp 99.8 99.8 Pulse 76 66 66 Resp 24 30 32 B/P (MAP) 133/75 (94) 136/80 (98) 134/77 (96) Pulse Ox 97 97 94 97 O2 Delivery Nasal Cannula Nasal Cannula VAPOTHERM Nasal Cannula O2 Flow Rate 30.0 30.0 30.0 30.0 05/30/20 05/30/20 05/30/20 12:00 12:20 13:10 Pulse 71 70 Resp 30 28 B/P (MAP) 123/74 (90) 119/73 (88) Pulse Ox 95 97 O2 Delivery Nasal Cannula Nasal Cannula Nasal Cannula O2 Flow Rate 30.0 30.0 30.0 Intake and Output 05/29/20 05/29/20 05/30/20 15:00 23:00 07:00 Intake Total 290 ml 1197 ml Output Total 480 ml 500 ml 300 ml Balance -190 ml 697 ml -300 ml Justicifation of Admission Dx: Justifications for Admission: Justification of Admission Dx: Yes (COVID, hypoxia, ) DAYANA ROBBINS MD May 30, 2020 13:48
[2020-05-30] MEDS: FAMOTIDINE 20 MG TABLET. PO SCH (20:03)
[2020-05-30] MEDS: cefTRIAXone IV Push 1 GM VIAL. IVP SCH (20:03)
[2020-05-30] MEDS: REMDESIVIR 100mg in NORMAL SALINE 250ML X 4 DAYS IV SCH (20:04)
[2020-05-31] VITALS (23 sets, daily range): BP systolic 103–144; BP diastolic 61–79
[2020-05-31] MEDS: IV NORMAL SALINE 1000ML BAG 1,000 ML IV SCH ×2 (04:11→20:47)
[2020-05-31 05:45] LABS: ALBUMIN 2.1 g/dL (3.4-5.0); DIRECT BILIRUBIN 0.1 mg/dL (0.0-0.2); TOTAL BILIRUBIN 0.3 mg/dL (0.2-1.0); TOTAL PROTEIN 5.6 g/dL (6.4-8.2)
[2020-05-31 05:57] LABS: MAGNESIUM 1.6 mg/dL (1.8-2.4)
[2020-05-31] MEDS: DEXAMETHASONE SOD PHOS 4 MG/ML VIAL IVP SCH (06:25)
[2020-05-31] MEDS: AZITHROMYCIN 250 MG TABLET. PO SCH (08:26)
[2020-05-31] MEDS: FAMOTIDINE 20 MG TABLET. PO SCH (08:26)
[2020-05-31] MEDS: ASCORBIC ACID 1,000 MG TABLET PO SCH (08:26)
[2020-05-31] MEDS: ZINC SULFATE 220 MG CAPSULE. PO SCH (08:26)
[2020-05-31] MEDS: FOLIC/VIT B COMP W-C (RENAL) TABLET. PO SCH (08:26)
[2020-05-31] MEDS: LACTOBACILLUS RHAMNOSUS GG 1 CAPSULE. PO SCH ×2 (08:27→20:48)
[2020-05-31] MEDS: ENOXAPARIN 40 MG/0.4 ML SYRINGE. SQ SCH ×2 (08:27→20:48)
[2020-05-31] MEDS ORDERED: MAGNESIUM SULFATE 2GM 50 ML IV ONE (09:00)
[2020-05-31] MEDS: CHOLECALCIFEROL (VITAMIN D3) 5,000 UNIT CAPSULE PO SCH (09:26)
[2020-05-31] MEDS: LIDO:MAALOX 1:1 20 ML SINGLE DOSE. PO PRN (09:26)
[2020-05-31 09:34] LABS: BASO % 0 % (0-3); EOS % 0 % (0-3); HEMATOCRIT 39.9 % (39.0-53.0); HEMOGLOBIN 13.2 g/dL (13.0-17.5); LYMPH # 1.4 x10^3/uL (1.0-4.8); LYMPH % 16 % (24-48); MEAN CORPUSCULAR HEMOGLOBIN 31 pg (25-35); MEAN CORPUSCULAR HGB CONC 33 g/dL (31-37); MEAN CORPUSCULAR VOLUME 92 fL (79-100); MONO # 1.4 x10^3/uL (0.0-1.1); MONO % 17 % (0-9); NEUT # 5.6 x10^3/uL (1.8-7.7); NEUT % 66 % (31-73); PLATELET COUNT 417 x10^3/uL (140-400); RED BLOOD COUNT 4.33 x10^6/uL (4.30-5.70); RED CELL DISTRIBUTION WIDTH 13.9 % (11.5-14.5); WHITE BLOOD COUNT 8.5 x10^3/uL (4.0-11.0)
[2020-05-31 09:54] LABS: CALCIUM 8.2 mg/dL (8.5-10.1); GFR 82.8; POTASSIUM 3.7 mmol/L (3.5-5.1)
--- NOTE | 2020-05-31 10:51 | PDOC ---
PULMONARY PROGRESS NOTES DATE: 05/31/20 TIME: 10:51 Subjective remains on vapotherm 95%FIO2 Vitals Vital Signs Date Time Temp Pulse Resp B/P (MAP) Pulse Ox O2 Delivery O2 Flow Rate FiO2 05/31/20 10:00 76 25 128/73 (91) 98 Vapotherm 30.0 05/31/20 08:00 100.0 100.0 Comments visual exam done no resp distress General: Alert, No acute distress Labs Laboratory Tests Test 05/30/20 08:10 05/31/20 05:00 White Blood Count 8.2 x10^3/uL (4.0-11.0) 8.5 x10^3/uL (4.0-11.0) Red Blood Count 4.40 x10^6/uL (4.30-5.70) 4.33 x10^6/uL (4.30-5.70) Hemoglobin 13.9 g/dL (13.0-17.5) 13.2 g/dL (13.0-17.5) Hematocrit 40.2 % (39.0-53.0) 39.9 % (39.0-53.0) Mean Corpuscular Volume 91 fL (79-100) 92 fL (79-100) Mean Corpuscular Hemoglobin 32 pg (25-35) 31 pg (25-35) Mean Corpuscular Hemoglobin Concent 35 g/dL (31-37) 33 g/dL (31-37) Red Cell Distribution Width 14.1 % (11.5-14.5) 13.9 % (11.5-14.5) Platelet Count 372 x10^3/uL (140-400) 417 x10^3/uL (140-400) Neutrophils (%) (Auto) 70 % (31-73) 66 % (31-73) Lymphocytes (%) (Auto) 14 % (24-48) 16 % (24-48) Monocytes (%) (Auto) 16 % (0-9) 17 % (0-9) Eosinophils (%) (Auto) 0 % (0-3) 0 % (0-3) Basophils (%) (Auto) 0 % (0-3) 0 % (0-3) Neutrophils # (Auto) 5.8 x10^3/uL (1.8-7.7) 5.6 x10^3/uL (1.8-7.7) Lymphocytes # (Auto) 1.1 x10^3/uL (1.0-4.8) 1.4 x10^3/uL (1.0-4.8) Monocytes # (Auto) 1.3 x10^3/uL (0.0-1.1) 1.4 x10^3/uL (0.0-1.1) Eosinophils # (Auto) 0.0 x10^3/uL (0.0-0.7) 0.0 x10^3/uL (0.0-0.7) Basophils # (Auto) 0.0 x10^3/uL (0.0-0.2) 0.0 x10^3/uL (0.0-0.2) Segmented Neutrophils % 64 % (35-66) Band Neutrophils % 6 % (0-9) Lymphocytes % 11 % (24-48) Atypical Lymphocytes % (Manual) 4 % (0-0) Monocytes % 10 % (0-10) Metamyelocytes % 1 % (0-0) Myelocytes % 4 % (0-0) Toxic Granulation Mod Toxic Vacuolation Slight Platelet Estimate Adequate (ADEQUATE) Sodium Level 142 mmol/L (136-145) 140 mmol/L (136-145) Potassium Level 4.1 mmol/L (3.5-5.1) 3.7 mmol/L (3.5-5.1) Chloride Level 106 mmol/L (98-107) 104 mmol/L (98-107) Carbon Dioxide Level 26 mmol/L (21-32) 27 mmol/L (21-32) Anion Gap 10 (6-14) 9 (6-14) Blood Urea Nitrogen 21 mg/dL (8-26) 17 mg/dL (8-26) Creatinine 1.1 mg/dL (0.7-1.3) 1.0 mg/dL (0.7-1.3) Estimated GFR (Cockcroft-Gault) 74.1 82.8 Glucose Level 89 mg/dL (70-99) 79 mg/dL (70-99) Calcium Level 8.5 mg/dL (8.5-10.1) 8.2 mg/dL (8.5-10.1) D-Dimer (Yulia) 1.10 ug/mlFEU (0.00-0.50) Magnesium Level 1.6 mg/dL (1.8-2.4) Ferritin 914 ng/mL (26-388) Total Bilirubin 0.3 mg/dL (0.2-1.0) Direct Bilirubin 0.1 mg/dL (0.0-0.2) Aspartate Amino Transf (AST/SGOT) 39 U/L (15-37) Alanine Aminotransferase (ALT/SGPT) 60 U/L (16-63) Alkaline Phosphatase 163 U/L (46-116) Lactate Dehydrogenase 317 U/L (85-227) Creatine Kinase 24 U/L (39-308) NG-Ong-Q-Type Natriuretic Peptide 505 pg/mL (0-124) Total Protein 5.6 g/dL (6.4-8.2) Albumin 2.1 g/dL (3.4-5.0) Laboratory Tests Test 05/31/20 05:00 White Blood Count 8.5 x10^3/uL (4.0-11.0) Red Blood Count 4.33 x10^6/uL (4.30-5.70) Hemoglobin 13.2 g/dL (13.0-17.5) Hematocrit 39.9 % (39.0-53.0) Mean Corpuscular Volume 92 fL (79-100) Mean Corpuscular Hemoglobin 31 pg (25-35) Mean Corpuscular Hemoglobin Concent 33 g/dL (31-37) Red Cell Distribution Width 13.9 % (11.5-14.5) Platelet Count 417 x10^3/uL (140-400) Neutrophils (%) (Auto) 66 % (31-73) Lymphocytes (%) (Auto) 16 % (24-48) Monocytes (%) (Auto) 17 % (0-9) Eosinophils (%) (Auto) 0 % (0-3) Basophils (%) (Auto) 0 % (0-3) Neutrophils # (Auto) 5.6 x10^3/uL (1.8-7.7) Lymphocytes # (Auto) 1.4 x10^3/uL (1.0-4.8) Monocytes # (Auto) 1.4 x10^3/uL (0.0-1.1) Eosinophils # (Auto) 0.0 x10^3/uL (0.0-0.7) Basophils # (Auto) 0.0 x10^3/uL (0.0-0.2) D-Dimer (Yulia) 1.10 ug/mlFEU (0.00-0.50) Sodium Level 140 mmol/L (136-145) Potassium Level 3.7 mmol/L (3.5-5.1) Chloride Level 104 mmol/L (98-107) Carbon Dioxide Level 27 mmol/L (21-32) Anion Gap 9 (6-14) Blood Urea Nitrogen 17 mg/dL (8-26) Creatinine 1.0 mg/dL (0.7-1.3) Estimated GFR (Cockcroft-Gault) 82.8 Glucose Level 79 mg/dL (70-99) Calcium Level 8.2 mg/dL (8.5-10.1) Magnesium Level 1.6 mg/dL (1.8-2.4) Ferritin 914 ng/mL (26-388) Total Bilirubin 0.3 mg/dL (0.2-1.0) Direct Bilirubin 0.1 mg/dL (0.0-0.2) Aspartate Amino Transf (AST/SGOT) 39 U/L (15-37) Alanine Aminotransferase (ALT/SGPT) 60 U/L (16-63) Alkaline Phosphatase 163 U/L (46-116) Lactate Dehydrogenase 317 U/L (85-227) Creatine Kinase 24 U/L (39-308) WC-Sdm-P-Type Natriuretic Peptide 505 pg/mL (0-124) Total Protein 5.6 g/dL (6.4-8.2) Albumin 2.1 g/dL (3.4-5.0) Impression . 1. Acute hypoxic respiratory failure secondary to acute respiratory distress syndrome and acute lung injury from COVID-19 viral pneumonia. 2. COVID-19 viral pneumonia. 3. Abnormal chest x-ray with bilateral patchy infiltrates consistent with COVID-19 pneumonia. Cannot exclude superimposed bacterial pneumonia. 4. Abnormal liver function test secondary to COVID-19. 5. Increased procalcitonin. Likely superimposed bacterial pneumonia. 6. Hyponatremia. 7. Acute kidney injury. Plan . 1. Continue high flow oxygen Vapotherm./95%FIO2, wean slowly 2. Closely watch for his oxygenation. 3. Remdesivir has been initiated and will continue 5 day course 4. Continue dexamethasone. 5. Empiric antibiotics. 6. High dose DVT prophylaxis. 7. D-dimer.trending down 8. Cough suppressant. 9. Discussed with RN. We will follow along with you. SUELLEN BLANCO MD May 31, 2020 10:51
--- NOTE | 2020-05-31 12:17 | PDOC ---
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 Patient initiated on remdesivir; Rocephin and azithromycin; IV steroids, full vitamin panel restart GERD meds, he takes as outpatient, pain today, poor PO intake, Vitals Vitals Vital Signs Date Time Temp Pulse Resp B/P (MAP) Pulse Ox O2 Delivery O2 Flow Rate FiO2 05/31/20 11:00 59 26 119/72 (88) 96 Vapotherm 30.0 05/31/20 08:00 100.0 100.0 Physical Exam General: Alert, Oriented X3, Cooperative, No acute distress Heart: Regular rate, Normal S1 Abdomen: Normal bowel sounds, Soft Extremities: No clubbing, No cyanosis Skin: No rashes, No breakdown Labs LABS Laboratory Tests Test 05/31/20 05:00 White Blood Count 8.5 x10^3/uL (4.0-11.0) Red Blood Count 4.33 x10^6/uL (4.30-5.70) Hemoglobin 13.2 g/dL (13.0-17.5) Hematocrit 39.9 % (39.0-53.0) Mean Corpuscular Volume 92 fL (79-100) Mean Corpuscular Hemoglobin 31 pg (25-35) Mean Corpuscular Hemoglobin Concent 33 g/dL (31-37) Red Cell Distribution Width 13.9 % (11.5-14.5) Platelet Count 417 x10^3/uL (140-400) Neutrophils (%) (Auto) 66 % (31-73) Lymphocytes (%) (Auto) 16 % (24-48) Monocytes (%) (Auto) 17 % (0-9) Eosinophils (%) (Auto) 0 % (0-3) Basophils (%) (Auto) 0 % (0-3) Neutrophils # (Auto) 5.6 x10^3/uL (1.8-7.7) Lymphocytes # (Auto) 1.4 x10^3/uL (1.0-4.8) Monocytes # (Auto) 1.4 x10^3/uL (0.0-1.1) Eosinophils # (Auto) 0.0 x10^3/uL (0.0-0.7) Basophils # (Auto) 0.0 x10^3/uL (0.0-0.2) D-Dimer (Yulia) 1.10 ug/mlFEU (0.00-0.50) Sodium Level 140 mmol/L (136-145) Potassium Level 3.7 mmol/L (3.5-5.1) Chloride Level 104 mmol/L (98-107) Carbon Dioxide Level 27 mmol/L (21-32) Anion Gap 9 (6-14) Blood Urea Nitrogen 17 mg/dL (8-26) Creatinine 1.0 mg/dL (0.7-1.3) Estimated GFR (Cockcroft-Gault) 82.8 Glucose Level 79 mg/dL (70-99) Calcium Level 8.2 mg/dL (8.5-10.1) Magnesium Level 1.6 mg/dL (1.8-2.4) Ferritin 914 ng/mL (26-388) Total Bilirubin 0.3 mg/dL (0.2-1.0) Direct Bilirubin 0.1 mg/dL (0.0-0.2) Aspartate Amino Transf (AST/SGOT) 39 U/L (15-37) Alanine Aminotransferase (ALT/SGPT) 60 U/L (16-63) Alkaline Phosphatase 163 U/L (46-116) Lactate Dehydrogenase 317 U/L (85-227) Creatine Kinase 24 U/L (39-308) TY-Rlm-B-Type Natriuretic Peptide 505 pg/mL (0-124) Total Protein 5.6 g/dL (6.4-8.2) Albumin 2.1 g/dL (3.4-5.0) Assessment and Plan Assessmemt and Plan Problems Medical Problems: (1) ARF (acute renal failure) Status: Acute Comment Review of Relevant I have reviewed the following items keyanna (where applicable) has been applied. Labs Laboratory Tests Test 05/30/20 08:10 05/31/20 05:00 White Blood Count 8.2 x10^3/uL (4.0-11.0) 8.5 x10^3/uL (4.0-11.0) Red Blood Count 4.40 x10^6/uL (4.30-5.70) 4.33 x10^6/uL (4.30-5.70) Hemoglobin 13.9 g/dL (13.0-17.5) 13.2 g/dL (13.0-17.5) Hematocrit 40.2 % (39.0-53.0) 39.9 % (39.0-53.0) Mean Corpuscular Volume 91 fL (79-100) 92 fL (79-100) Mean Corpuscular Hemoglobin 32 pg (25-35) 31 pg (25-35) Mean Corpuscular Hemoglobin Concent 35 g/dL (31-37) 33 g/dL (31-37) Red Cell Distribution Width 14.1 % (11.5-14.5) 13.9 % (11.5-14.5) Platelet Count 372 x10^3/uL (140-400) 417 x10^3/uL (140-400) Neutrophils (%) (Auto) 70 % (31-73) 66 % (31-73) Lymphocytes (%) (Auto) 14 % (24-48) 16 % (24-48) Monocytes (%) (Auto) 16 % (0-9) 17 % (0-9) Eosinophils (%) (Auto) 0 % (0-3) 0 % (0-3) Basophils (%) (Auto) 0 % (0-3) 0 % (0-3) Neutrophils # (Auto) 5.8 x10^3/uL (1.8-7.7) 5.6 x10^3/uL (1.8-7.7) Lymphocytes # (Auto) 1.1 x10^3/uL (1.0-4.8) 1.4 x10^3/uL (1.0-4.8) Monocytes # (Auto) 1.3 x10^3/uL (0.0-1.1) 1.4 x10^3/uL (0.0-1.1) Eosinophils # (Auto) 0.0 x10^3/uL (0.0-0.7) 0.0 x10^3/uL (0.0-0.7) Basophils # (Auto) 0.0 x10^3/uL (0.0-0.2) 0.0 x10^3/uL (0.0-0.2) Segmented Neutrophils % 64 % (35-66) Band Neutrophils % 6 % (0-9) Lymphocytes % 11 % (24-48) Atypical Lymphocytes % (Manual) 4 % (0-0) Monocytes % 10 % (0-10) Metamyelocytes % 1 % (0-0) Myelocytes % 4 % (0-0) Toxic Granulation Mod Toxic Vacuolation Slight Platelet Estimate Adequate (ADEQUATE) Sodium Level 142 mmol/L (136-145) 140 mmol/L (136-145) Potassium Level 4.1 mmol/L (3.5-5.1) 3.7 mmol/L (3.5-5.1) Chloride Level 106 mmol/L (98-107) 104 mmol/L (98-107) Carbon Dioxide Level 26 mmol/L (21-32) 27 mmol/L (21-32) Anion Gap 10 (6-14) 9 (6-14) Blood Urea Nitrogen 21 mg/dL (8-26) 17 mg/dL (8-26) Creatinine 1.1 mg/dL (0.7-1.3) 1.0 mg/dL (0.7-1.3) Estimated GFR (Cockcroft-Gault) 74.1 82.8 Glucose Level 89 mg/dL (70-99) 79 mg/dL (70-99) Calcium Level 8.5 mg/dL (8.5-10.1) 8.2 mg/dL (8.5-10.1) D-Dimer (Yulia) 1.10 ug/mlFEU (0.00-0.50) Magnesium Level 1.6 mg/dL (1.8-2.4) Ferritin 914 ng/mL (26-388) Total Bilirubin 0.3 mg/dL (0.2-1.0) Direct Bilirubin 0.1 mg/dL (0.0-0.2) Aspartate Amino Transf (AST/SGOT) 39 U/L (15-37) Alanine Aminotransferase (ALT/SGPT) 60 U/L (16-63) Alkaline Phosphatase 163 U/L (46-116) Lactate Dehydrogenase 317 U/L (85-227) Creatine Kinase 24 U/L (39-308) TN-Cdo-P-Type Natriuretic Peptide 505 pg/mL (0-124) Total Protein 5.6 g/dL (6.4-8.2) Albumin 2.1 g/dL (3.4-5.0) Laboratory Tests Test 05/31/20 05:00 White Blood Count 8.5 x10^3/uL (4.0-11.0) Red Blood Count 4.33 x10^6/uL (4.30-5.70) Hemoglobin 13.2 g/dL (13.0-17.5) Hematocrit 39.9 % (39.0-53.0) Mean Corpuscular Volume 92 fL (79-100) Mean Corpuscular Hemoglobin 31 pg (25-35) Mean Corpuscular Hemoglobin Concent 33 g/dL (31-37) Red Cell Distribution Width 13.9 % (11.5-14.5) Platelet Count 417 x10^3/uL (140-400) Neutrophils (%) (Auto) 66 % (31-73) Lymphocytes (%) (Auto) 16 % (24-48) Monocytes (%) (Auto) 17 % (0-9) Eosinophils (%) (Auto) 0 % (0-3) Basophils (%) (Auto) 0 % (0-3) Neutrophils # (Auto) 5.6 x10^3/uL (1.8-7.7) Lymphocytes # (Auto) 1.4 x10^3/uL (1.0-4.8) Monocytes # (Auto) 1.4 x10^3/uL (0.0-1.1) Eosinophils # (Auto) 0.0 x10^3/uL (0.0-0.7) Basophils # (Auto) 0.0 x10^3/uL (0.0-0.2) D-Dimer (Yulia) 1.10 ug/mlFEU (0.00-0.50) Sodium Level 140 mmol/L (136-145) Potassium Level 3.7 mmol/L (3.5-5.1) Chloride Level 104 mmol/L (98-107) Carbon Dioxide Level 27 mmol/L (21-32) Anion Gap 9 (6-14) Blood Urea Nitrogen 17 mg/dL (8-26) Creatinine 1.0 mg/dL (0.7-1.3) Estimated GFR (Cockcroft-Gault) 82.8 Glucose Level 79 mg/dL (70-99) Calcium Level 8.2 mg/dL (8.5-10.1) Magnesium Level 1.6 mg/dL (1.8-2.4) Ferritin 914 ng/mL (26-388) Total Bilirubin 0.3 mg/dL (0.2-1.0) Direct Bilirubin 0.1 mg/dL (0.0-0.2) Aspartate Amino Transf (AST/SGOT) 39 U/L (15-37) Alanine Aminotransferase (ALT/SGPT) 60 U/L (16-63) Alkaline Phosphatase 163 U/L (46-116) Lactate Dehydrogenase 317 U/L (85-227) Creatine Kinase 24 U/L (39-308) UO-Gps-N-Type Natriuretic Peptide 505 pg/mL (0-124) Total Protein 5.6 g/dL (6.4-8.2) Albumin 2.1 g/dL (3.4-5.0) Microbiology 05/28/20 Blood Culture - Preliminary, Resulted NO GROWTH AFTER 3 DAYS Medications Current Medications Morphine Sulfate (Morphine Sulfate) 4 mg PRN Q15MIN PRN IV/SQ PAIN GREATER THAN 3/10; Start 05/27/20 at 17:45; Stop 05/28/20 at 17:44; Status DC Dexamethasone Sodium Phosphate (Decadron) 10 mg 1X ONCE IV Last administered on 05/27/20at 19:51; Start 05/27/20 at 17:45; Stop 05/27/20 at 17:58; Status DC Ceftriaxone Sodium (Rocephin) 1 gm 1X ONCE IVP Last administered on 05/27/20at 21:24; Start 05/27/20 at 21:00; Stop 05/27/20 at 21:01; Status DC Azithromycin 250 ml @ 250 mls/hr 1X ONCE IV Last administered on 05/27/20at 21:24; Start 05/27/20 at 20:45; Stop 05/27/20 at 21:44; Status DC Ondansetron HCl (Zofran) 4 mg PRN Q4HRS PRN IV NAUSEA/VOMITING 1st choice; Start 05/27/20 at 21:45 Zolpidem Tartrate (Ambien) 5 mg PRN QHS PRN PO INSOMNIA; Start 05/27/20 at 21:45 Acetaminophen (Tylenol) 650 mg PRN Q4HRS PRN PO TEMP OVER 100.4F OR MILD PAIN Last administered on 05/30/20at 07:57; Start 05/27/20 at 21:45 Docusate Sodium (Colace) 100 mg PRN BID PRN PO HARD STOOLS; Start 05/27/20 at 21:45 Enoxaparin Sodium (Lovenox 40mg Syringe) 40 mg BID SQ Last administered on 05/31/20at 08:27; Start 05/27/20 at 22:00 Zinc Sulfate (Orazinc) 220 mg DAILY PO Last administered on 05/31/20at 08:26; Start 05/27/20 at 22:00 Guaifenesin (Robitussin Dm) 10 ml PRN Q6HRS PRN PO COUGH 1ST CHOICE Last administered on 05/29/20at 08:32; Start 05/27/20 at 21:45 Ceftriaxone Sodium (Rocephin) 1 gm QHS IVP Last administered on 05/30/20at 20:03; Start 05/28/20 at 21:00 Azithromycin (Zithromax) 250 mg DAILY PO Last administered on 05/31/20at 08:26; Start 05/28/20 at 09:00; Stop 05/31/20 at 09:01; Status DC Dexamethasone Sodium Phosphate (Decadron) 6 mg DAILY07 IVP Last administered on 05/31/20at 06:25; Start 05/28/20 at 07:00 Sodium Chloride 1,000 ml @ 125 mls/hr 1X ONCE IV Last administered on 05/27/20at 22:03; Start 05/27/20 at 22:00; Stop 05/28/20 at 05:59; Status DC Remdesivir 200 mg/ Sodium Chloride 210 ml @ 210 mls/hr 1X ONCE IV Last administered on 05/27/20at 23:11; Start 05/27/20 at 23:00; Stop 05/27/20 at 23:59; Status DC Remdesivir 100 mg/ Sodium Chloride 230 ml @ 460 mls/hr Q24H IV Last administered on 05/30/20at 20:04; Start 05/28/20 at 22:00; Stop 05/31/20 at 22:29 Ondansetron HCl (Zofran) 4 mg PRN Q8HRS PRN IV NAUSEA/VOMITING; Start 05/27/20 at 23:15; Stop 05/27/20 at 23:12; Status DC Morphine Sulfate (Morphine Sulfate) 2 mg PRN Q2HR PRN IV SEVERE PAIN 7-10; Start 05/27/20 at 23:15; Stop 05/28/20 at 23:14; Status DC Acetaminophen (Tylenol) 650 mg PRN Q4HRS PRN PO FEVER > 100.3'F; Start 05/27/20 at 23:15; Stop 05/27/20 at 23:12; Status DC Sterile Water (WATER for RESP) 1,000 ml CONT PRN INH VIA VAPOTHERM DEVICE Last administered on 05/30/20at 07:57; Start 05/28/20 at 08:45 Sodium Chloride 1,000 ml @ 75 mls/hr [id number] IV Last administered on 05/31/20at 04:11; Start 05/28/20 at 10:00 Glycerin/ Hypromellose/ Polyethylene (Artificial Tears) 1 drop PRN Q15MIN PRN OU DRY EYE; Start 05/29/20 at 09:00 Ascorbic Acid (Vitamin C) 1,000 mg DAILY PO Last administered on 05/31/20at 08:26; Start 05/29/20 at 12:00 Vitamin B Complex/ Vitamin C (Janeth-Tamiko) 1 tab DAILY PO Last administered on 05/31/20at 08:26; Start 05/29/20 at 12:00 Lactobacillus Rhamnosus (Culturelle) 1 cap BID PO Last administered on 05/31/20at 08:27; Start 05/29/20 at 21:00 Multi-Ingredient Mouthwash/Gargle (Velvet Glove Oral Susp) 10 ml 1X ONCE PO Last administered on 05/30/20at 09:23; Start 05/30/20 at 08:45; Stop 05/30/20 at 08:46; Status DC Famotidine (Pepcid) 20 mg BID PO Last administered on 05/31/20at 08:26; Start 05/30/20 at 21:00 Famotidine (Pepcid Vial) 20 mg 1X ONCE IVP Last administered on 05/30/20at 09:23; Start 05/30/20 at 08:45; Stop 05/30/20 at 08:46; Status DC Calcium Carbonate/ Glycine (Tums) 500 mg PRN AFTMEALHC PRN PO INDIGESTION; Start 05/30/20 at 08:45 Polyethylene Glycol (miraLAX PACKET) 17 gm PRN DAILY PRN PO CONSTIPATION; Start 05/30/20 at 08:45 Multi-Ingredient Mouthwash/Gargle (Gi Cocktail) 20 ml PRN QID PRN PO CHEST PAIN Last administered on 05/31/20at 09:26; Start 05/31/20 at 08:45 Magnesium Sulfate 50 ml @ 25 mls/hr 1X ONCE IV Last administered on 05/31/20at 09:00; Start 05/31/20 at 09:00; Stop 05/31/20 at 10:59; Status DC Vitamin D (Vitamin D3) 5,000 unit DAILY PO Last administered on 05/31/20at 09:26; Start 05/31/20 at 09:00 Vitals/I & O Vital Sign - Last 24 Hours 05/30/20 05/30/20 05/30/20 05/30/20 12:20 13:10 14:00 15:10 Temp 99.0 99.0 Pulse 70 60 62 Resp 28 32 27 B/P (MAP) 119/73 (88) 113/66 (82) 120/70 (87) Pulse Ox 97 96 96 O2 Delivery Nasal Cannula Nasal Cannula Nasal Cannula Nasal Cannula O2 Flow Rate 30.0 30.0 30.0 30.0 05/30/20 05/30/20 05/30/20 05/30/20 15:14 16:00 16:00 17:00 Pulse 63 52 Resp 30 24 B/P (MAP) 120/70 (87) 115/67 (83) Pulse Ox 97 96 98 O2 Delivery VAPOTHERM Nasal Cannula Nasal Cannula Nasal Cannula O2 Flow Rate 30.0 30.0 30.0 30.0 05/30/20 05/30/20 05/30/20 05/30/20 18:00 19:15 20:00 20:01 Temp 98.4 98.4 Pulse 65 71 71 Resp 30 30 32 B/P (MAP) 116/74 (88) 118/67 (84) 114/66 (82) Pulse Ox 95 95 95 O2 Delivery Nasal Cannula Nasal Cannula Nasal Cannula Nasal Cannula O2 Flow Rate 30.0 30.0 30.0 30.0 05/30/20 05/30/20 05/30/20 05/30/20 20:15 21:00 22:00 23:06 Pulse 54 55 51 Resp 30 36 37 B/P (MAP) 129/75 (93) 119/70 (86) 113/60 (77) Pulse Ox 97 98 95 95 O2 Delivery VAPOTHERM Nasal Cannula Nasal Cannula Nasal Cannula O2 Flow Rate 30.0 30.0 30.0 30.0 05/31/20 05/31/20 05/31/20 05/31/20 00:10 00:29 01:21 02:10 Pulse 51 56 Resp 31 29 B/P (MAP) 115/63 (80) 119/71 (87) Pulse Ox 99 99 99 O2 Delivery VAPOTHERM Nasal Cannula Nasal Cannula Nasal Cannula O2 Flow Rate 30.0 30.0 30.0 30.0 05/31/20 05/31/20 05/31/20 05/31/20 03:05 03:54 04:09 04:16 Temp 99.6 99.6 Pulse 51 51 Resp 35 26 B/P (MAP) 119/71 (87) 119/71 (87) Pulse Ox 97 100 95 O2 Delivery Nasal Cannula Nasal Cannula Nasal Cannula VAPOTHERM O2 Flow Rate 30.0 30.0 30.0 30.0 05/31/20 05/31/20 05/31/20 05/31/20 05:15 06:06 07:00 08:00 Pulse 68 70 54 Resp 32 34 29 B/P (MAP) 144/79 (100) 132/69 (90) 142/74 (96) Pulse Ox 95 95 96 O2 Delivery Nasal Cannula Vapotherm Nasal Cannula O2 Flow Rate 30.0 30.0 30.0 30.0 05/31/20 05/31/20 05/31/20 05/31/20 08:00 09:00 10:00 11:00 Temp 100.0 100.0 Pulse 62 74 76 59 Resp 26 30 25 26 B/P (MAP) 139/73 (95) 127/71 (89) 128/73 (91) 119/72 (88) Pulse Ox 96 95 98 96 O2 Delivery Nasal Cannula Nasal Cannula Vapotherm Vapotherm O2 Flow Rate 30.0 30.0 30.0 30.0 Intake and Output 05/30/20 05/30/20 05/31/20 15:00 23:00 07:00 Intake Total 350 ml 730 ml 300 ml Output Total 600 ml 1100 ml 675 ml Balance -250 ml -370 ml -375 ml Justicifation of Admission Dx: Justifications for Admission: Justification of Admission Dx: Yes (COVID, hypoxia, ) DAYANA ROBBINS MD May 31, 2020 12:17
[2020-05-31] MEDS: PANTOPRAZOLE 40 MG TABLET.DR. PO SCH (15:50)
[2020-05-31] MEDS: cefTRIAXone IV Push 1 GM VIAL. IVP SCH (20:48)
[2020-05-31] MEDS: REMDESIVIR 100mg in NORMAL SALINE 250ML X 4 DAYS IV SCH (22:00)
[2020-06-01] VITALS (23 sets, daily range): BP systolic 95–135; BP diastolic 52–78
[2020-06-01] MEDS: STERILE WATER for RESP 1,000 ML BAG. INH PRN ×2 (05:14→16:38)
[2020-06-01 05:36] LABS: BASO % 1 % (0-3); EOS % 0 % (0-3); HEMOGLOBIN 13.1 g/dL (13.0-17.5); LYMPH # 1.2 x10^3/uL (1.0-4.8); LYMPH % 17 % (24-48); MEAN CORPUSCULAR HEMOGLOBIN 31 pg (25-35); MEAN CORPUSCULAR HGB CONC 34 g/dL (31-37); MEAN CORPUSCULAR VOLUME 91 fL (79-100); MONO # 1.1 x10^3/uL (0.0-1.1); MONO % 15 % (0-9); NEUT # 4.8 x10^3/uL (1.8-7.7); NEUT % 68 % (31-73); PLATELET COUNT 417 x10^3/uL (140-400); RED BLOOD COUNT 4.28 x10^6/uL (4.30-5.70); RED CELL DISTRIBUTION WIDTH 13.7 % (11.5-14.5); WHITE BLOOD COUNT 7.1 x10^3/uL (4.0-11.0)
[2020-06-01 05:42] LABS: CALCIUM 7.8 mg/dL (8.5-10.1); CREATININE 0.8 mg/dL (0.7-1.3); GFR 107.1; POTASSIUM 3.8 mmol/L (3.5-5.1)
--- NOTE | 2020-06-01 06:05 | PDOC ---
PULMONARY PROGRESS NOTES DATE: 06/01/20 TIME: 06:04 Subjective remains on vapotherm 30 lpm fio2 90% feels better Vitals Vital Signs Date Time Temp Pulse Resp B/P (MAP) Pulse Ox O2 Delivery O2 Flow Rate FiO2 06/01/20 05:00 98.0 52 24 112/68 (83) 96 Vapotherm 30.0 98.0 Comments visual exam done no resp distress alert nc at rrr no accessory muscle use no rash Labs Laboratory Tests Test 05/30/20 08:10 05/31/20 05:00 06/01/20 05:15 White Blood Count 8.2 x10^3/uL (4.0-11.0) 8.5 x10^3/uL (4.0-11.0) 7.1 x10^3/uL (4.0-11.0) Red Blood Count 4.40 x10^6/uL (4.30-5.70) 4.33 x10^6/uL (4.30-5.70) 4.28 x10^6/uL (4.30-5.70) Hemoglobin 13.9 g/dL (13.0-17.5) 13.2 g/dL (13.0-17.5) 13.1 g/dL (13.0-17.5) Hematocrit 40.2 % (39.0-53.0) 39.9 % (39.0-53.0) 39.0 % (39.0-53.0) Mean Corpuscular Volume 91 fL (79-100) 92 fL (79-100) 91 fL (79-100) Mean Corpuscular Hemoglobin 32 pg (25-35) 31 pg (25-35) 31 pg (25-35) Mean Corpuscular Hemoglobin Concent 35 g/dL (31-37) 33 g/dL (31-37) 34 g/dL (31-37) Red Cell Distribution Width 14.1 % (11.5-14.5) 13.9 % (11.5-14.5) 13.7 % (11.5-14.5) Platelet Count 372 x10^3/uL (140-400) 417 x10^3/uL (140-400) 417 x10^3/uL (140-400) Neutrophils (%) (Auto) 70 % (31-73) 66 % (31-73) 68 % (31-73) Lymphocytes (%) (Auto) 14 % (24-48) 16 % (24-48) 17 % (24-48) Monocytes (%) (Auto) 16 % (0-9) 17 % (0-9) 15 % (0-9) Eosinophils (%) (Auto) 0 % (0-3) 0 % (0-3) 0 % (0-3) Basophils (%) (Auto) 0 % (0-3) 0 % (0-3) 1 % (0-3) Neutrophils # (Auto) 5.8 x10^3/uL (1.8-7.7) 5.6 x10^3/uL (1.8-7.7) 4.8 x10^3/uL (1.8-7.7) Lymphocytes # (Auto) 1.1 x10^3/uL (1.0-4.8) 1.4 x10^3/uL (1.0-4.8) 1.2 x10^3/uL (1.0-4.8) Monocytes # (Auto) 1.3 x10^3/uL (0.0-1.1) 1.4 x10^3/uL (0.0-1.1) 1.1 x10^3/uL (0.0-1.1) Eosinophils # (Auto) 0.0 x10^3/uL (0.0-0.7) 0.0 x10^3/uL (0.0-0.7) 0.0 x10^3/uL (0.0-0.7) Basophils # (Auto) 0.0 x10^3/uL (0.0-0.2) 0.0 x10^3/uL (0.0-0.2) 0.0 x10^3/uL (0.0-0.2) Segmented Neutrophils % 64 % (35-66) Band Neutrophils % 6 % (0-9) Lymphocytes % 11 % (24-48) Atypical Lymphocytes % (Manual) 4 % (0-0) Monocytes % 10 % (0-10) Metamyelocytes % 1 % (0-0) Myelocytes % 4 % (0-0) Toxic Granulation Mod Toxic Vacuolation Slight Platelet Estimate Adequate (ADEQUATE) Sodium Level 142 mmol/L (136-145) 140 mmol/L (136-145) 141 mmol/L (136-145) Potassium Level 4.1 mmol/L (3.5-5.1) 3.7 mmol/L (3.5-5.1) 3.8 mmol/L (3.5-5.1) Chloride Level 106 mmol/L (98-107) 104 mmol/L (98-107) 105 mmol/L (98-107) Carbon Dioxide Level 26 mmol/L (21-32) 27 mmol/L (21-32) 27 mmol/L (21-32) Anion Gap 10 (6-14) 9 (6-14) 9 (6-14) Blood Urea Nitrogen 21 mg/dL (8-26) 17 mg/dL (8-26) 16 mg/dL (8-26) Creatinine 1.1 mg/dL (0.7-1.3) 1.0 mg/dL (0.7-1.3) 0.8 mg/dL (0.7-1.3) Estimated GFR (Cockcroft-Gault) 74.1 82.8 107.1 Glucose Level 89 mg/dL (70-99) 79 mg/dL (70-99) 95 mg/dL (70-99) Calcium Level 8.5 mg/dL (8.5-10.1) 8.2 mg/dL (8.5-10.1) 7.8 mg/dL (8.5-10.1) D-Dimer (Yulia) 1.10 ug/mlFEU (0.00-0.50) Magnesium Level 1.6 mg/dL (1.8-2.4) Ferritin 914 ng/mL (26-388) Total Bilirubin 0.3 mg/dL (0.2-1.0) Direct Bilirubin 0.1 mg/dL (0.0-0.2) Aspartate Amino Transf (AST/SGOT) 39 U/L (15-37) Alanine Aminotransferase (ALT/SGPT) 60 U/L (16-63) Alkaline Phosphatase 163 U/L (46-116) Lactate Dehydrogenase 317 U/L (85-227) Creatine Kinase 24 U/L (39-308) JS-Wlk-X-Type Natriuretic Peptide 505 pg/mL (0-124) Total Protein 5.6 g/dL (6.4-8.2) Albumin 2.1 g/dL (3.4-5.0) Laboratory Tests Test 06/01/20 05:15 White Blood Count 7.1 x10^3/uL (4.0-11.0) Red Blood Count 4.28 x10^6/uL (4.30-5.70) Hemoglobin 13.1 g/dL (13.0-17.5) Hematocrit 39.0 % (39.0-53.0) Mean Corpuscular Volume 91 fL (79-100) Mean Corpuscular Hemoglobin 31 pg (25-35) Mean Corpuscular Hemoglobin Concent 34 g/dL (31-37) Red Cell Distribution Width 13.7 % (11.5-14.5) Platelet Count 417 x10^3/uL (140-400) Neutrophils (%) (Auto) 68 % (31-73) Lymphocytes (%) (Auto) 17 % (24-48) Monocytes (%) (Auto) 15 % (0-9) Eosinophils (%) (Auto) 0 % (0-3) Basophils (%) (Auto) 1 % (0-3) Neutrophils # (Auto) 4.8 x10^3/uL (1.8-7.7) Lymphocytes # (Auto) 1.2 x10^3/uL (1.0-4.8) Monocytes # (Auto) 1.1 x10^3/uL (0.0-1.1) Eosinophils # (Auto) 0.0 x10^3/uL (0.0-0.7) Basophils # (Auto) 0.0 x10^3/uL (0.0-0.2) Sodium Level 141 mmol/L (136-145) Potassium Level 3.8 mmol/L (3.5-5.1) Chloride Level 105 mmol/L (98-107) Carbon Dioxide Level 27 mmol/L (21-32) Anion Gap 9 (6-14) Blood Urea Nitrogen 16 mg/dL (8-26) Creatinine 0.8 mg/dL (0.7-1.3) Estimated GFR (Cockcroft-Gault) 107.1 Glucose Level 95 mg/dL (70-99) Calcium Level 7.8 mg/dL (8.5-10.1) Comments cxr reviewed Patchy perihilar airspace disease consistent with pneumonia. Covid 19 pneumonitis not excluded. Impression . 1. Acute hypoxic respiratory failure secondary to acute respiratory distress syndrome and acute lung injury from COVID-19 viral pneumonia. 2. COVID-19 viral pneumonia. 3. Abnormal chest x-ray with bilateral patchy infiltrates consistent with COVID-19 pneumonia. Cannot exclude superimposed bacterial pneumonia. 4. Abnormal liver function test secondary to COVID-19. 5. Increased procalcitonin. Likely superimposed bacterial pneumonia. 6. Hyponatremia. 7. Acute kidney injury. Plan . 1. Continue high flow oxygen Vapotherm. titrate fio2 to keep sat 90% 2. Closely watch for his oxygenation. 3. Remdesivir has been initiated and will continue 5 day course 4. Continue dexamethasone. 5. Empiric antibiotics. 6. High dose DVT prophylaxis. 7. D-dimer.trending down 8. Cough suppressant. 9. Discussed with RN. We will follow along with you. ABEL ARCHER MD Jun 01, 2020 06:05
[2020-06-01] MEDS: DEXAMETHASONE SOD PHOS 4 MG/ML VIAL IVP SCH ×2 (06:40→08:11)
[2020-06-01] MEDS: ASCORBIC ACID 1,000 MG TABLET PO SCH (08:11)
[2020-06-01] MEDS: CHOLECALCIFEROL (VITAMIN D3) 5,000 UNIT CAPSULE PO SCH (08:11)
[2020-06-01] MEDS: ENOXAPARIN 40 MG/0.4 ML SYRINGE. SQ SCH ×2 (08:11→21:13)
[2020-06-01] MEDS: ZINC SULFATE 220 MG CAPSULE. PO SCH (08:11)
[2020-06-01] MEDS: LACTOBACILLUS RHAMNOSUS GG 1 CAPSULE. PO SCH ×2 (08:12→21:13)
[2020-06-01] MEDS: PANTOPRAZOLE 40 MG TABLET.DR. PO SCH ×2 (08:12→18:21)
[2020-06-01] MEDS: FOLIC/VIT B COMP W-C (RENAL) TABLET. PO SCH (09:30)
[2020-06-01] MEDS: LIDO:MAALOX 1:1 20 ML SINGLE DOSE. PO PRN (09:30)
--- NOTE | 2020-06-01 10:30 | PDOC ---
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 Positive COVID-19 test outpatient. Patient initiated on remdesivir; Rocephin and azithromycin; IV steroids, full vitamin panel restart GERD meds, he takes as outpatient, pain today, poor PO intake, Vitals Vitals Vital Signs Date Time Temp Pulse Resp B/P (MAP) Pulse Ox O2 Delivery O2 Flow Rate FiO2 06/01/20 08:59 95 VAPOTHERM 30.0 06/01/20 06:00 54 25 112/66 (81) 06/01/20 05:00 98.0 98.0 Physical Exam General: Alert, Oriented X3, Cooperative, No acute distress Heart: Regular rate, Normal S1 Abdomen: Normal bowel sounds, Soft Extremities: No clubbing, No cyanosis Skin: No rashes, No breakdown Labs LABS Laboratory Tests Test 06/01/20 05:15 White Blood Count 7.1 x10^3/uL (4.0-11.0) Red Blood Count 4.28 x10^6/uL (4.30-5.70) Hemoglobin 13.1 g/dL (13.0-17.5) Hematocrit 39.0 % (39.0-53.0) Mean Corpuscular Volume 91 fL (79-100) Mean Corpuscular Hemoglobin 31 pg (25-35) Mean Corpuscular Hemoglobin Concent 34 g/dL (31-37) Red Cell Distribution Width 13.7 % (11.5-14.5) Platelet Count 417 x10^3/uL (140-400) Neutrophils (%) (Auto) 68 % (31-73) Lymphocytes (%) (Auto) 17 % (24-48) Monocytes (%) (Auto) 15 % (0-9) Eosinophils (%) (Auto) 0 % (0-3) Basophils (%) (Auto) 1 % (0-3) Neutrophils # (Auto) 4.8 x10^3/uL (1.8-7.7) Lymphocytes # (Auto) 1.2 x10^3/uL (1.0-4.8) Monocytes # (Auto) 1.1 x10^3/uL (0.0-1.1) Eosinophils # (Auto) 0.0 x10^3/uL (0.0-0.7) Basophils # (Auto) 0.0 x10^3/uL (0.0-0.2) Sodium Level 141 mmol/L (136-145) Potassium Level 3.8 mmol/L (3.5-5.1) Chloride Level 105 mmol/L (98-107) Carbon Dioxide Level 27 mmol/L (21-32) Anion Gap 9 (6-14) Blood Urea Nitrogen 16 mg/dL (8-26) Creatinine 0.8 mg/dL (0.7-1.3) Estimated GFR (Cockcroft-Gault) 107.1 Glucose Level 95 mg/dL (70-99) Calcium Level 7.8 mg/dL (8.5-10.1) Assessment and Plan Assessmemt and Plan Problems Medical Problems: (1) ARF (acute renal failure) Status: Acute Comment Review of Relevant I have reviewed the following items keyanna (where applicable) has been applied. Labs Laboratory Tests Test 05/31/20 05:00 06/01/20 05:15 White Blood Count 8.5 x10^3/uL (4.0-11.0) 7.1 x10^3/uL (4.0-11.0) Red Blood Count 4.33 x10^6/uL (4.30-5.70) 4.28 x10^6/uL (4.30-5.70) Hemoglobin 13.2 g/dL (13.0-17.5) 13.1 g/dL (13.0-17.5) Hematocrit 39.9 % (39.0-53.0) 39.0 % (39.0-53.0) Mean Corpuscular Volume 92 fL (79-100) 91 fL (79-100) Mean Corpuscular Hemoglobin 31 pg (25-35) 31 pg (25-35) Mean Corpuscular Hemoglobin Concent 33 g/dL (31-37) 34 g/dL (31-37) Red Cell Distribution Width 13.9 % (11.5-14.5) 13.7 % (11.5-14.5) Platelet Count 417 x10^3/uL (140-400) 417 x10^3/uL (140-400) Neutrophils (%) (Auto) 66 % (31-73) 68 % (31-73) Lymphocytes (%) (Auto) 16 % (24-48) 17 % (24-48) Monocytes (%) (Auto) 17 % (0-9) 15 % (0-9) Eosinophils (%) (Auto) 0 % (0-3) 0 % (0-3) Basophils (%) (Auto) 0 % (0-3) 1 % (0-3) Neutrophils # (Auto) 5.6 x10^3/uL (1.8-7.7) 4.8 x10^3/uL (1.8-7.7) Lymphocytes # (Auto) 1.4 x10^3/uL (1.0-4.8) 1.2 x10^3/uL (1.0-4.8) Monocytes # (Auto) 1.4 x10^3/uL (0.0-1.1) 1.1 x10^3/uL (0.0-1.1) Eosinophils # (Auto) 0.0 x10^3/uL (0.0-0.7) 0.0 x10^3/uL (0.0-0.7) Basophils # (Auto) 0.0 x10^3/uL (0.0-0.2) 0.0 x10^3/uL (0.0-0.2) D-Dimer (Yulia) 1.10 ug/mlFEU (0.00-0.50) Sodium Level 140 mmol/L (136-145) 141 mmol/L (136-145) Potassium Level 3.7 mmol/L (3.5-5.1) 3.8 mmol/L (3.5-5.1) Chloride Level 104 mmol/L (98-107) 105 mmol/L (98-107) Carbon Dioxide Level 27 mmol/L (21-32) 27 mmol/L (21-32) Anion Gap 9 (6-14) 9 (6-14) Blood Urea Nitrogen 17 mg/dL (8-26) 16 mg/dL (8-26) Creatinine 1.0 mg/dL (0.7-1.3) 0.8 mg/dL (0.7-1.3) Estimated GFR (Cockcroft-Gault) 82.8 107.1 Glucose Level 79 mg/dL (70-99) 95 mg/dL (70-99) Calcium Level 8.2 mg/dL (8.5-10.1) 7.8 mg/dL (8.5-10.1) Magnesium Level 1.6 mg/dL (1.8-2.4) Ferritin 914 ng/mL (26-388) Total Bilirubin 0.3 mg/dL (0.2-1.0) Direct Bilirubin 0.1 mg/dL (0.0-0.2) Aspartate Amino Transf (AST/SGOT) 39 U/L (15-37) Alanine Aminotransferase (ALT/SGPT) 60 U/L (16-63) Alkaline Phosphatase 163 U/L (46-116) Lactate Dehydrogenase 317 U/L (85-227) Creatine Kinase 24 U/L (39-308) GA-Csd-E-Type Natriuretic Peptide 505 pg/mL (0-124) Total Protein 5.6 g/dL (6.4-8.2) Albumin 2.1 g/dL (3.4-5.0) Laboratory Tests Test 06/01/20 05:15 White Blood Count 7.1 x10^3/uL (4.0-11.0) Red Blood Count 4.28 x10^6/uL (4.30-5.70) Hemoglobin 13.1 g/dL (13.0-17.5) Hematocrit 39.0 % (39.0-53.0) Mean Corpuscular Volume 91 fL (79-100) Mean Corpuscular Hemoglobin 31 pg (25-35) Mean Corpuscular Hemoglobin Concent 34 g/dL (31-37) Red Cell Distribution Width 13.7 % (11.5-14.5) Platelet Count 417 x10^3/uL (140-400) Neutrophils (%) (Auto) 68 % (31-73) Lymphocytes (%) (Auto) 17 % (24-48) Monocytes (%) (Auto) 15 % (0-9) Eosinophils (%) (Auto) 0 % (0-3) Basophils (%) (Auto) 1 % (0-3) Neutrophils # (Auto) 4.8 x10^3/uL (1.8-7.7) Lymphocytes # (Auto) 1.2 x10^3/uL (1.0-4.8) Monocytes # (Auto) 1.1 x10^3/uL (0.0-1.1) Eosinophils # (Auto) 0.0 x10^3/uL (0.0-0.7) Basophils # (Auto) 0.0 x10^3/uL (0.0-0.2) Sodium Level 141 mmol/L (136-145) Potassium Level 3.8 mmol/L (3.5-5.1) Chloride Level 105 mmol/L (98-107) Carbon Dioxide Level 27 mmol/L (21-32) Anion Gap 9 (6-14) Blood Urea Nitrogen 16 mg/dL (8-26) Creatinine 0.8 mg/dL (0.7-1.3) Estimated GFR (Cockcroft-Gault) 107.1 Glucose Level 95 mg/dL (70-99) Calcium Level 7.8 mg/dL (8.5-10.1) Microbiology 05/28/20 Blood Culture - Preliminary, Resulted NO GROWTH AFTER 4 DAYS Medications Current Medications Morphine Sulfate (Morphine Sulfate) 4 mg PRN Q15MIN PRN IV/SQ PAIN GREATER THAN 3/10; Start 05/27/20 at 17:45; Stop 05/28/20 at 17:44; Status DC Dexamethasone Sodium Phosphate (Decadron) 10 mg 1X ONCE IV Last administered on 05/27/20at 19:51; Start 05/27/20 at 17:45; Stop 05/27/20 at 17:58; Status DC Ceftriaxone Sodium (Rocephin) 1 gm 1X ONCE IVP Last administered on 05/27/20at 21:24; Start 05/27/20 at 21:00; Stop 05/27/20 at 21:01; Status DC Azithromycin 250 ml @ 250 mls/hr 1X ONCE IV Last administered on 05/27/20at 21:24; Start 05/27/20 at 20:45; Stop 05/27/20 at 21:44; Status DC Ondansetron HCl (Zofran) 4 mg PRN Q4HRS PRN IV NAUSEA/VOMITING 1st choice; Start 05/27/20 at 21:45 Zolpidem Tartrate (Ambien) 5 mg PRN QHS PRN PO INSOMNIA; Start 05/27/20 at 21:45 Acetaminophen (Tylenol) 650 mg PRN Q4HRS PRN PO TEMP OVER 100.4F OR MILD PAIN Last administered on 05/30/20at 07:57; Start 05/27/20 at 21:45 Docusate Sodium (Colace) 100 mg PRN BID PRN PO HARD STOOLS; Start 05/27/20 at 21:45 Enoxaparin Sodium (Lovenox 40mg Syringe) 40 mg BID SQ Last administered on 06/01/20at 08:11; Start 05/27/20 at 22:00 Zinc Sulfate (Orazinc) 220 mg DAILY PO Last administered on 06/01/20at 08:11; Start 05/27/20 at 22:00 Guaifenesin (Robitussin Dm) 10 ml PRN Q6HRS PRN PO COUGH 1ST CHOICE Last administered on 05/29/20at 08:32; Start 05/27/20 at 21:45 Ceftriaxone Sodium (Rocephin) 1 gm QHS IVP Last administered on 05/31/20at 20:48; Start 05/28/20 at 21:00 Azithromycin (Zithromax) 250 mg DAILY PO Last administered on 05/31/20at 08:26; Start 05/28/20 at 09:00; Stop 05/31/20 at 09:01; Status DC Dexamethasone Sodium Phosphate (Decadron) 6 mg DAILY07 IVP Last administered on 06/01/20at 08:11; Start 05/28/20 at 07:00 Sodium Chloride 1,000 ml @ 125 mls/hr 1X ONCE IV Last administered on 05/27/20at 22:03; Start 05/27/20 at 22:00; Stop 05/28/20 at 05:59; Status DC Remdesivir 200 mg/ Sodium Chloride 210 ml @ 210 mls/hr 1X ONCE IV Last administered on 05/27/20at 23:11; Start 05/27/20 at 23:00; Stop 05/27/20 at 23:59; Status DC Remdesivir 100 mg/ Sodium Chloride 230 ml @ 460 mls/hr Q24H IV Last administered on 05/31/20at 22:00; Start 05/28/20 at 22:00; Stop 05/31/20 at 22:29; Status DC Ondansetron HCl (Zofran) 4 mg PRN Q8HRS PRN IV NAUSEA/VOMITING; Start 05/27/20 at 23:15; Stop 05/27/20 at 23:12; Status DC Morphine Sulfate (Morphine Sulfate) 2 mg PRN Q2HR PRN IV SEVERE PAIN 7-10; Start 05/27/20 at 23:15; Stop 05/28/20 at 23:14; Status DC Acetaminophen (Tylenol) 650 mg PRN Q4HRS PRN PO FEVER > 100.3'F; Start 05/27/20 at 23:15; Stop 05/27/20 at 23:12; Status DC Sterile Water (WATER for RESP) 1,000 ml CONT PRN INH VIA VAPOTHERM DEVICE Last administered on 06/01/20at 05:14; Start 05/28/20 at 08:45 Sodium Chloride 1,000 ml @ 75 mls/hr [id number] IV Last administered on 05/31/20at 20:47; Start 05/28/20 at 10:00 Glycerin/ Hypromellose/ Polyethylene (Artificial Tears) 1 drop PRN Q15MIN PRN OU DRY EYE; Start 05/29/20 at 09:00 Ascorbic Acid (Vitamin C) 1,000 mg DAILY PO Last administered on 06/01/20at 08:11; Start 05/29/20 at 12:00 Vitamin B Complex/ Vitamin C (Janeth-Tamiko) 1 tab DAILY PO Last administered on 06/01/20at 09:30; Start 05/29/20 at 12:00 Lactobacillus Rhamnosus (Culturelle) 1 cap BID PO Last administered on 06/01/20at 08:12; Start 05/29/20 at 21:00 Multi-Ingredient Mouthwash/Gargle (Velvet Glove Oral Susp) 10 ml 1X ONCE PO Last administered on 05/30/20at 09:23; Start 05/30/20 at 08:45; Stop 05/30/20 at 08:46; Status DC Famotidine (Pepcid) 20 mg BID PO Last administered on 05/31/20at 08:26; Start 05/30/20 at 21:00; Stop 05/31/20 at 12:17; Status DC Famotidine (Pepcid Vial) 20 mg 1X ONCE IVP Last administered on 05/30/20at 09:23; Start 05/30/20 at 08:45; Stop 05/30/20 at 08:46; Status DC Calcium Carbonate/ Glycine (Tums) 500 mg PRN AFTMEALHC PRN PO INDIGESTION; Start 05/30/20 at 08:45 Polyethylene Glycol (miraLAX PACKET) 17 gm PRN DAILY PRN PO CONSTIPATION; Start 05/30/20 at 08:45 Multi-Ingredient Mouthwash/Gargle (Gi Cocktail) 20 ml PRN QID PRN PO CHEST PAIN Last administered on 06/01/20at 09:30; Start 05/31/20 at 08:45 Magnesium Sulfate 50 ml @ 25 mls/hr 1X ONCE IV Last administered on 05/31/20at 09:00; Start 05/31/20 at 09:00; Stop 05/31/20 at 10:59; Status DC Vitamin D (Vitamin D3) 5,000 unit DAILY PO Last administered on 06/01/20at 08:11; Start 05/31/20 at 09:00 Pantoprazole Sodium (Protonix) 40 mg BIDAC PO Last administered on 06/01/20at 08:12; Start 05/31/20 at 16:30 Vitals/I & O Vital Sign - Last 24 Hours 05/31/20 05/31/20 05/31/20 05/31/20 11:00 11:40 12:00 12:00 Pulse 59 63 Resp 26 26 B/P (MAP) 119/72 (88) 116/69 (85) Pulse Ox 96 99 96 O2 Delivery Vapotherm VAPOTHERM Vapotherm Nasal Cannula O2 Flow Rate 30.0 30.0 30.0 30.0 05/31/20 05/31/20 05/31/20 05/31/20 13:00 14:00 15:00 15:54 Temp 98.7 98.7 Pulse 70 68 75 Resp 40 41 38 B/P (MAP) 112/66 (81) 108/61 (77) 103/68 (80) Pulse Ox 97 97 95 O2 Delivery Vapotherm Vapotherm Vapotherm Nasal Cannula O2 Flow Rate 30.0 30.0 30.0 30.0 05/31/20 05/31/20 05/31/20 05/31/20 16:00 17:00 18:00 19:00 Pulse 71 57 68 52 Resp 42 41 46 28 B/P (MAP) 113/70 (84) 112/65 (81) 116/69 (85) 116/67 (83) Pulse Ox 95 98 91 95 O2 Delivery Vapotherm Vapotherm Vapotherm Vapotherm O2 Flow Rate 30.0 30.0 30.0 30.0 05/31/20 05/31/20 05/31/20 05/31/20 20:00 20:13 21:00 21:00 Temp 97.9 97.9 Pulse 52 54 Resp 45 39 B/P (MAP) 117/69 (85) 123/72 (89) Pulse Ox 92 92 94 O2 Delivery Vapotherm VAPOTHERM Vapotherm Nasal Cannula O2 Flow Rate 30.0 30.0 30.0 30.0 05/31/20 05/31/20 06/01/20 06/01/20 22:00 23:00 00:00 00:00 Pulse 53 59 42 Resp 28 34 32 B/P (MAP) 108/62 (77) 114/70 (85) 108/64 (79) Pulse Ox 95 96 98 96 O2 Delivery Vapotherm Vapotherm Vapotherm VAPOTHERM O2 Flow Rate 30.0 30.0 30.0 30.0 06/01/20 06/01/20 06/01/20 06/01/20 00:00 01:00 02:00 03:00 Pulse 49 46 51 Resp 28 36 26 B/P (MAP) 103/59 (74) 110/65 (80) 114/68 (83) Pulse Ox 96 96 95 O2 Delivery Nasal Cannula Vapotherm Vapotherm Vapotherm O2 Flow Rate 30.0 30.0 30.0 30.0 06/01/20 06/01/20 06/01/20 06/01/20 04:00 04:00 04:00 05:00 Temp 98.0 98.0 Pulse 50 52 Resp 30 24 B/P (MAP) 115/70 (85) 112/68 (83) Pulse Ox 94 93 96 O2 Delivery Nasal Cannula Vapotherm VAPOTHERM Vapotherm O2 Flow Rate 30.0 30.0 30.0 30.0 06/01/20 06/01/20 06:00 08:59 Pulse 54 Resp 25 B/P (MAP) 112/66 (81) Pulse Ox 97 95 O2 Delivery Vapotherm VAPOTHERM O2 Flow Rate 30.0 30.0 Intake and Output 05/31/20 05/31/20 06/01/20 15:00 23:00 07:00 Intake Total 120 ml 1437.8 ml 814 ml Output Total 1540 ml 950 ml 650 ml Balance -1420 ml 487.8 ml 164 ml Justicifation of Admission Dx: Justifications for Admission: Justification of Admission Dx: Yes (COVID, hypoxia, ) DAYANA ROBBINS MD Jun 01, 2020 10:30
[2020-06-01] MEDS: IV NORMAL SALINE 1000ML BAG 1,000 ML IV SCH (10:51)
[2020-06-01] MEDS: POTASSIUM CL 20MEQ D5-0.45NACL 1,000 ML IV SCH (18:19)
[2020-06-01] MEDS: cefTRIAXone IV Push 1 GM VIAL. IVP SCH (21:14)
[2020-06-02] VITALS (15 sets, daily range): BP systolic 100–133; BP diastolic 53–82
[2020-06-02 04:23] LABS: BASO % 0 % (0-3); EOS % 0 % (0-3); HEMATOCRIT 39.8 % (39.0-53.0); HEMOGLOBIN 13.9 g/dL (13.0-17.5); LYMPH # 1.1 x10^3/uL (1.0-4.8); LYMPH % 16 % (24-48); MEAN CORPUSCULAR HEMOGLOBIN 32 pg (25-35); MEAN CORPUSCULAR HGB CONC 35 g/dL (31-37); MEAN CORPUSCULAR VOLUME 91 fL (79-100); MONO # 1.1 x10^3/uL (0.0-1.1); MONO % 15 % (0-9); NEUT # 4.9 x10^3/uL (1.8-7.7); NEUT % 69 % (31-73); PLATELET COUNT 469 x10^3/uL (140-400); RED BLOOD COUNT 4.37 x10^6/uL (4.30-5.70); RED CELL DISTRIBUTION WIDTH 13.9 % (11.5-14.5); WHITE BLOOD COUNT 7.2 x10^3/uL (4.0-11.0)
[2020-06-02 04:41] LABS: CALCIUM 8.2 mg/dL (8.5-10.1); CREATININE 0.8 mg/dL (0.7-1.3); GFR 107.1; POTASSIUM 4.1 mmol/L (3.5-5.1)
[2020-06-02 06:24] LABS: MAGNESIUM 1.7 mg/dL (1.8-2.4)
[2020-06-02] MEDS: POTASSIUM CL 20MEQ D5-0.45NACL 1,000 ML IV SCH ×2 (08:03→15:15)
[2020-06-02] MEDS: CHOLECALCIFEROL (VITAMIN D3) 5,000 UNIT CAPSULE PO SCH (09:03)
[2020-06-02] MEDS: ZINC SULFATE 220 MG CAPSULE. PO SCH (09:04)
[2020-06-02] MEDS: FOLIC/VIT B COMP W-C (RENAL) TABLET. PO SCH (09:04)
[2020-06-02] MEDS: ENOXAPARIN 40 MG/0.4 ML SYRINGE. SQ SCH ×2 (09:04→21:26)
[2020-06-02] MEDS: ASCORBIC ACID 1,000 MG TABLET PO SCH (09:04)
[2020-06-02] MEDS: PANTOPRAZOLE 40 MG TABLET.DR. PO SCH ×2 (09:04→16:30)
[2020-06-02] MEDS: LACTOBACILLUS RHAMNOSUS GG 1 CAPSULE. PO SCH ×2 (09:04→21:20)
[2020-06-02] MEDS: LIDO:MAALOX 1:1 20 ML SINGLE DOSE. PO PRN (09:32)
--- NOTE | 2020-06-02 09:35 | PDOC ---
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 Positive COVID-19 test outpatient. Patient initiated on remdesivir; Rocephin and azithromycin; IV steroids, full vitamin panel restart GERD meds, he takes as outpatient, pain today, poor PO intake, Vitals Vitals Vital Signs Date Time Temp Pulse Resp B/P (MAP) Pulse Ox O2 Delivery O2 Flow Rate FiO2 06/02/20 09:15 98.4 78 22 103/63 (76) 97 Nasal Cannula 15.0 98.4 Physical Exam General: Alert, Oriented X3, Cooperative, No acute distress Heart: Regular rate, Normal S1 Abdomen: Normal bowel sounds, Soft Extremities: No clubbing, No cyanosis Skin: No rashes, No breakdown Labs LABS Laboratory Tests Test 06/02/20 04:00 06/02/20 05:00 White Blood Count 7.2 x10^3/uL (4.0-11.0) Red Blood Count 4.37 x10^6/uL (4.30-5.70) Hemoglobin 13.9 g/dL (13.0-17.5) Hematocrit 39.8 % (39.0-53.0) Mean Corpuscular Volume 91 fL (79-100) Mean Corpuscular Hemoglobin 32 pg (25-35) Mean Corpuscular Hemoglobin Concent 35 g/dL (31-37) Red Cell Distribution Width 13.9 % (11.5-14.5) Platelet Count 469 x10^3/uL (140-400) Neutrophils (%) (Auto) 69 % (31-73) Lymphocytes (%) (Auto) 16 % (24-48) Monocytes (%) (Auto) 15 % (0-9) Eosinophils (%) (Auto) 0 % (0-3) Basophils (%) (Auto) 0 % (0-3) Neutrophils # (Auto) 4.9 x10^3/uL (1.8-7.7) Lymphocytes # (Auto) 1.1 x10^3/uL (1.0-4.8) Monocytes # (Auto) 1.1 x10^3/uL (0.0-1.1) Eosinophils # (Auto) 0.0 x10^3/uL (0.0-0.7) Basophils # (Auto) 0.0 x10^3/uL (0.0-0.2) Sodium Level 140 mmol/L (136-145) Potassium Level 4.1 mmol/L (3.5-5.1) Chloride Level 105 mmol/L (98-107) Carbon Dioxide Level 28 mmol/L (21-32) Anion Gap 7 (6-14) Blood Urea Nitrogen 15 mg/dL (8-26) Creatinine 0.8 mg/dL (0.7-1.3) Estimated GFR (Cockcroft-Gault) 107.1 Glucose Level 105 mg/dL (70-99) Calcium Level 8.2 mg/dL (8.5-10.1) D-Dimer (Yulia) 0.72 ug/mlFEU (0.00-0.50) Magnesium Level 1.7 mg/dL (1.8-2.4) Ferritin 784 ng/mL (26-388) Lactate Dehydrogenase 273 U/L (85-227) Creatine Kinase 19 U/L (39-308) IH-Ofj-M-Type Natriuretic Peptide 89 pg/mL (0-124) Assessment and Plan Assessmemt and Plan Problems Medical Problems: (1) ARF (acute renal failure) Status: Acute Comment Review of Relevant I have reviewed the following items keyanna (where applicable) has been applied. Labs Laboratory Tests Test 06/01/20 05:15 06/02/20 04:00 06/02/20 05:00 White Blood Count 7.1 x10^3/uL (4.0-11.0) 7.2 x10^3/uL (4.0-11.0) Red Blood Count 4.28 x10^6/uL (4.30-5.70) 4.37 x10^6/uL (4.30-5.70) Hemoglobin 13.1 g/dL (13.0-17.5) 13.9 g/dL (13.0-17.5) Hematocrit 39.0 % (39.0-53.0) 39.8 % (39.0-53.0) Mean Corpuscular Volume 91 fL (79-100) 91 fL (79-100) Mean Corpuscular Hemoglobin 31 pg (25-35) 32 pg (25-35) Mean Corpuscular Hemoglobin Concent 34 g/dL (31-37) 35 g/dL (31-37) Red Cell Distribution Width 13.7 % (11.5-14.5) 13.9 % (11.5-14.5) Platelet Count 417 x10^3/uL (140-400) 469 x10^3/uL (140-400) Neutrophils (%) (Auto) 68 % (31-73) 69 % (31-73) Lymphocytes (%) (Auto) 17 % (24-48) 16 % (24-48) Monocytes (%) (Auto) 15 % (0-9) 15 % (0-9) Eosinophils (%) (Auto) 0 % (0-3) 0 % (0-3) Basophils (%) (Auto) 1 % (0-3) 0 % (0-3) Neutrophils # (Auto) 4.8 x10^3/uL (1.8-7.7) 4.9 x10^3/uL (1.8-7.7) Lymphocytes # (Auto) 1.2 x10^3/uL (1.0-4.8) 1.1 x10^3/uL (1.0-4.8) Monocytes # (Auto) 1.1 x10^3/uL (0.0-1.1) 1.1 x10^3/uL (0.0-1.1) Eosinophils # (Auto) 0.0 x10^3/uL (0.0-0.7) 0.0 x10^3/uL (0.0-0.7) Basophils # (Auto) 0.0 x10^3/uL (0.0-0.2) 0.0 x10^3/uL (0.0-0.2) Sodium Level 141 mmol/L (136-145) 140 mmol/L (136-145) Potassium Level 3.8 mmol/L (3.5-5.1) 4.1 mmol/L (3.5-5.1) Chloride Level 105 mmol/L (98-107) 105 mmol/L (98-107) Carbon Dioxide Level 27 mmol/L (21-32) 28 mmol/L (21-32) Anion Gap 9 (6-14) 7 (6-14) Blood Urea Nitrogen 16 mg/dL (8-26) 15 mg/dL (8-26) Creatinine 0.8 mg/dL (0.7-1.3) 0.8 mg/dL (0.7-1.3) Estimated GFR (Cockcroft-Gault) 107.1 107.1 Glucose Level 95 mg/dL (70-99) 105 mg/dL (70-99) Calcium Level 7.8 mg/dL (8.5-10.1) 8.2 mg/dL (8.5-10.1) D-Dimer (Yulia) 0.72 ug/mlFEU (0.00-0.50) Magnesium Level 1.7 mg/dL (1.8-2.4) Ferritin 784 ng/mL (26-388) Lactate Dehydrogenase 273 U/L (85-227) Creatine Kinase 19 U/L (39-308) TJ-Lrh-M-Type Natriuretic Peptide 89 pg/mL (0-124) Laboratory Tests Test 06/02/20 04:00 06/02/20 05:00 White Blood Count 7.2 x10^3/uL (4.0-11.0) Red Blood Count 4.37 x10^6/uL (4.30-5.70) Hemoglobin 13.9 g/dL (13.0-17.5) Hematocrit 39.8 % (39.0-53.0) Mean Corpuscular Volume 91 fL (79-100) Mean Corpuscular Hemoglobin 32 pg (25-35) Mean Corpuscular Hemoglobin Concent 35 g/dL (31-37) Red Cell Distribution Width 13.9 % (11.5-14.5) Platelet Count 469 x10^3/uL (140-400) Neutrophils (%) (Auto) 69 % (31-73) Lymphocytes (%) (Auto) 16 % (24-48) Monocytes (%) (Auto) 15 % (0-9) Eosinophils (%) (Auto) 0 % (0-3) Basophils (%) (Auto) 0 % (0-3) Neutrophils # (Auto) 4.9 x10^3/uL (1.8-7.7) Lymphocytes # (Auto) 1.1 x10^3/uL (1.0-4.8) Monocytes # (Auto) 1.1 x10^3/uL (0.0-1.1) Eosinophils # (Auto) 0.0 x10^3/uL (0.0-0.7) Basophils # (Auto) 0.0 x10^3/uL (0.0-0.2) Sodium Level 140 mmol/L (136-145) Potassium Level 4.1 mmol/L (3.5-5.1) Chloride Level 105 mmol/L (98-107) Carbon Dioxide Level 28 mmol/L (21-32) Anion Gap 7 (6-14) Blood Urea Nitrogen 15 mg/dL (8-26) Creatinine 0.8 mg/dL (0.7-1.3) Estimated GFR (Cockcroft-Gault) 107.1 Glucose Level 105 mg/dL (70-99) Calcium Level 8.2 mg/dL (8.5-10.1) D-Dimer (Yulia) 0.72 ug/mlFEU (0.00-0.50) Magnesium Level 1.7 mg/dL (1.8-2.4) Ferritin 784 ng/mL (26-388) Lactate Dehydrogenase 273 U/L (85-227) Creatine Kinase 19 U/L (39-308) VG-Vdy-Q-Type Natriuretic Peptide 89 pg/mL (0-124) Microbiology 05/28/20 Blood Culture - Final, Complete NO GROWTH AFTER 5 DAYS Medications Current Medications Morphine Sulfate (Morphine Sulfate) 4 mg PRN Q15MIN PRN IV/SQ PAIN GREATER THAN 3/10; Start 05/27/20 at 17:45; Stop 05/28/20 at 17:44; Status DC Dexamethasone Sodium Phosphate (Decadron) 10 mg 1X ONCE IV Last administered on 05/27/20at 19:51; Start 05/27/20 at 17:45; Stop 05/27/20 at 17:58; Status DC Ceftriaxone Sodium (Rocephin) 1 gm 1X ONCE IVP Last administered on 05/27/20at 21:24; Start 05/27/20 at 21:00; Stop 05/27/20 at 21:01; Status DC Azithromycin 250 ml @ 250 mls/hr 1X ONCE IV Last administered on 05/27/20at 21:24; Start 05/27/20 at 20:45; Stop 05/27/20 at 21:44; Status DC Ondansetron HCl (Zofran) 4 mg PRN Q4HRS PRN IV NAUSEA/VOMITING 1st choice; Start 05/27/20 at 21:45 Zolpidem Tartrate (Ambien) 5 mg PRN QHS PRN PO INSOMNIA; Start 05/27/20 at 2 1:45 Acetaminophen (Tylenol) 650 mg PRN Q4HRS PRN PO TEMP OVER 100.4F OR MILD PAIN Last administered on 05/30/20at 07:57; Start 05/27/20 at 21:45 Docusate Sodium (Colace) 100 mg PRN BID PRN PO HARD STOOLS; Start 05/27/20 at 21:45 Enoxaparin Sodium (Lovenox 40mg Syringe) 40 mg BID SQ Last administered on 06/02/20at 09:04; Start 05/27/20 at 22:00 Zinc Sulfate (Orazinc) 220 mg DAILY PO Last administered on 06/02/20at 09:04; Start 05/27/20 at 22:00 Guaifenesin (Robitussin Dm) 10 ml PRN Q6HRS PRN PO COUGH 1ST CHOICE Last administered on 05/29/20at 08:32; Start 05/27/20 at 21:45 Ceftriaxone Sodium (Rocephin) 1 gm QHS IVP Last administered on 06/01/20at 21:14; Start 05/28/20 at 21:00 Azithromycin (Zithromax) 250 mg DAILY PO Last administered on 05/31/20at 08:26; Start 05/28/20 at 09:00; Stop 05/31/20 at 09:01; Status DC Dexamethasone Sodium Phosphate (Decadron) 6 mg DAILY07 IVP Last administered on 06/01/20at 08:11; Start 05/28/20 at 07:00 Sodium Chloride 1,000 ml @ 125 mls/hr 1X ONCE IV Last administered on at 22:03; Start 05/27/20 at 22:00; Stop 05/28/20 at 05:59; Status DC Remdesivir 200 mg/ Sodium Chloride 210 ml @ 210 mls/hr 1X ONCE IV Last administered on 05/27/20at 23:11; Start 05/27/20 at 23:00; Stop 05/27/20 at 23:59; Status DC Remdesivir 100 mg/ Sodium Chloride 230 ml @ 460 mls/hr Q24H IV Last administered on 05/31/20at 22:00; Start 05/28/20 at 22:00; Stop 05/31/20 at 22:29; Status DC Ondansetron HCl (Zofran) 4 mg PRN Q8HRS PRN IV NAUSEA/VOMITING; Start 05/27/20 at 23:15; Stop 05/27/20 at 23:12; Status DC Morphine Sulfate (Morphine Sulfate) 2 mg PRN Q2HR PRN IV SEVERE PAIN 7-10; Start 05/27/20 at 23:15; Stop 05/28/20 at 23:14; Status DC Acetaminophen (Tylenol) 650 mg PRN Q4HRS PRN PO FEVER > 100.3'F; Start 05/27/20 at 23:15; Stop 05/27/20 at 23:12; Status DC Sterile Water (WATER for RESP) 1,000 ml CONT PRN INH VIA VAPOTHERM DEVICE Last administered on 06/01/20at 16:38; Start 05/28/20 at 08:45 Sodium Chloride 1,000 ml @ 75 mls/hr [id number] IV Last administered on 06/01/20at 10:51; Start 05/28/20 at 10:00; Stop 06/01/20 at 14:07; Status DC Glycerin/ Hypromellose/ Polyethylene (Artificial Tears) 1 drop PRN Q15MIN PRN OU DRY EYE; Start 05/29/20 at 09:00 Ascorbic Acid (Vitamin C) 1,000 mg DAILY PO Last administered on 06/02/20at 09:04; Start 05/29/20 at 12:00 Vitamin B Complex/ Vitamin C (Janeth-Tamiko) 1 tab DAILY PO Last administered on 06/02/20at 09:04; Start 05/29/20 at 12:00 Lactobacillus Rhamnosus (Culturelle) 1 cap BID PO Last administered on 06/02/20at 09:04; Start 05/29/20 at 21:00 Multi-Ingredient Mouthwash/Gargle (Velvet Glove Oral Susp) 10 ml 1X ONCE PO Last administered on 05/30/20at 09:23; Start 05/30/20 at 08:45; Stop 05/30/20 at 08:46; Status DC Famotidine (Pepcid) 20 mg BID PO Last administered on 05/31/20at 08:26; Start 05/30/20 at 21:00; Stop 05/31/20 at 12:17; Status DC Famotidine (Pepcid Vial) 20 mg 1X ONCE IVP Last administered on 05/30/20at 09:23; Start 05/30/20 at 08:45; Stop 05/30/20 at 08:46; Status DC Calcium Carbonate/ Glycine (Tums) 500 mg PRN AFTMEALHC PRN PO INDIGESTION; Start 05/30/20 at 08:45 Polyethylene Glycol (miraLAX PACKET) 17 gm PRN DAILY PRN PO CONSTIPATION; Start 05/30/20 at 08:45 Multi-Ingredient Mouthwash/Gargle (Gi Cocktail) 20 ml PRN QID PRN PO CHEST PAIN Last administered on 06/02/20at 09:32; Start 05/31/20 at 08:45 Magnesium Sulfate 50 ml @ 25 mls/hr 1X ONCE IV Last administered on 05/31/20at 09:00; Start 05/31/20 at 09:00; Stop 05/31/20 at 10:59; Status DC Vitamin D (Vitamin D3) 5,000 unit DAILY PO Last administered on 06/02/20at 09:03; Start 05/31/20 at 09:00 Pantoprazole Sodium (Protonix) 40 mg BIDAC PO Last administered on 06/02/20at 09:04; Start 05/31/20 at 16:30 Potassium Chloride/Dextrose/ Sod Cl 1,000 ml @ 80 mls/hr [id number] IV Last administered on 06/02/20at 08:03; Start 06/01/20 at 14:15 Vitals/I & O Vital Sign - Last 24 Hours 06/01/20 06/01/20 06/01/20 06/01/20 10:00 11:00 12:00 12:00 Temp 98.3 98.3 Pulse 84 68 74 Resp 24 B/P (MAP) 108/65 (79) 109/59 (76) 109/52 (71) Pulse Ox 95 98 96 O2 Delivery Vapotherm Vapotherm Nasal Cannula Vapotherm O2 Flow Rate 30.0 30.0 30.0 30.0 06/01/20 06/01/20 06/01/20 06/01/20 12:27 12:54 13:00 14:00 Pulse 70 74 Resp B/P (MAP) 103/59 (74) 95/58 (70) Pulse Ox 96 99 99 99 O2 Delivery VAPOTHERM Vapotherm Vapotherm O2 Flow Rate 30.0 25.0 25.0 25.0 06/01/20 06/01/20 06/01/20 06/01/20 15:00 16:00 16:00 16:04 Pulse 76 64 Resp B/P (MAP) 108/71 (83) 110/54 (72) Pulse Ox 96 96 94 O2 Delivery Vapotherm Vapotherm Nasal Cannula VAPOTHERM O2 Flow Rate 25.0 25.0 30.0 25.0 06/01/20 06/01/20 06/01/20 06/01/20 17:00 18:00 19:00 20:00 Temp 98.6 98.6 Pulse 62 62 54 Resp B/P (MAP) 103/60 (74) 101/64 (76) 104/63 (77) Pulse Ox 94 94 93 O2 Delivery Vapotherm Vapotherm Vapotherm Nasal Cannula O2 Flow Rate 25.0 25.0 25.0 25.0 06/01/20 06/01/20 06/01/20 06/01/20 20:00 20:45 21:00 22:00 Temp 98.2 98.2 Pulse 54 56 62 Resp B/P (MAP) 104/59 (74) 114/70 (85) 108/66 (80) Pulse Ox 97 92 95 95 O2 Delivery Vapotherm VAPOTHERM Vapotherm Vapotherm O2 Flow Rate 25.0 25.0 25.0 25.0 06/01/20 06/02/20 06/02/20 06/02/20 23:00 00:00 00:00 00:01 Temp 98.5 98.5 Pulse 49 45 Resp 23 23 B/P (MAP) 100/58 (72) 104/53 (70) Pulse Ox 98 92 100 O2 Delivery Vapotherm Nasal Cannula VAPOTHERM Vapotherm O2 Flow Rate 25.0 25.0 25.0 25.0 06/02/20 06/02/20 06/02/20 06/02/20 01:00 02:00 03:00 04:00 Pulse 49 49 49 Resp 24 24 B/P (MAP) 103/57 (72) 101/57 (72) 105/59 (74) Pulse Ox 99 98 99 O2 Delivery Vapotherm Vapotherm Vapotherm Nasal Cannula O2 Flow Rate 25.0 25.0 25.0 25.0 06/02/20 06/02/20 06/02/20 06/02/20 04:00 05:00 05:35 06:00 Temp 98.0 98.0 Pulse 47 49 46 Resp 20 23 26 B/P (MAP) 105/65 (78) 117/71 (86) 118/73 (88) Pulse Ox 99 96 99 97 O2 Delivery Vapotherm Vapotherm VAPOTHERM Vapotherm O2 Flow Rate 25.0 25.0 25.0 25.0 06/02/20 06/02/20 06/02/20 06/02/20 07:17 07:58 08:00 08:00 Temp 98.1 98.1 98.1 98.1 Pulse 50 84 Resp 26 23 B/P (MAP) 130/82 (98) 125/78 (94) Pulse Ox 97 97 97 O2 Delivery Nasal Cannula VAPOTHERM Nasal Cannula Nasal Cannula O2 Flow Rate 25.0 20.0 25.0 20.0 06/02/20 09:15 Temp 98.4 98.4 Pulse 78 Resp 22 B/P (MAP) 103/63 (76) Pulse Ox 97 O2 Delivery Nasal Cannula O2 Flow Rate 15.0 Intake and Output 06/01/20 06/01/20 06/02/20 15:00 23:00 07:00 Intake Total 700 ml 1416 ml 938 ml Output Total 750 ml 800 ml 625 ml Balance -50 ml 616 ml 313 ml Justicifation of Admission Dx: Justifications for Admission: Justification of Admission Dx: Yes (COVID, hypoxia, ) DAYANA ROBBINS MD Jun 02, 2020 09:35
--- NOTE | 2020-06-02 10:59 | PDOC ---
PULMONARY PROGRESS NOTES DATE: 06/02/20 TIME: 10:57 Subjective on 02 10 lpm feels better sob better Vitals Vital Signs Date Time Temp Pulse Resp B/P (MAP) Pulse Ox O2 Delivery O2 Flow Rate FiO2 06/02/20 10:00 64 26 107/67 (80) 98 Nasal Cannula 10.0 06/02/20 09:15 98.4 98.4 Comments visual exam done no resp distress alert nc at rrr no accessory muscle use no rash Labs Laboratory Tests Test 06/01/20 05:15 06/02/20 04:00 06/02/20 05:00 White Blood Count 7.1 x10^3/uL (4.0-11.0) 7.2 x10^3/uL (4.0-11.0) Red Blood Count 4.28 x10^6/uL (4.30-5.70) 4.37 x10^6/uL (4.30-5.70) Hemoglobin 13.1 g/dL (13.0-17.5) 13.9 g/dL (13.0-17.5) Hematocrit 39.0 % (39.0-53.0) 39.8 % (39.0-53.0) Mean Corpuscular Volume 91 fL (79-100) 91 fL (79-100) Mean Corpuscular Hemoglobin 31 pg (25-35) 32 pg (25-35) Mean Corpuscular Hemoglobin Concent 34 g/dL (31-37) 35 g/dL (31-37) Red Cell Distribution Width 13.7 % (11.5-14.5) 13.9 % (11.5-14.5) Platelet Count 417 x10^3/uL (140-400) 469 x10^3/uL (140-400) Neutrophils (%) (Auto) 68 % (31-73) 69 % (31-73) Lymphocytes (%) (Auto) 17 % (24-48) 16 % (24-48) Monocytes (%) (Auto) 15 % (0-9) 15 % (0-9) Eosinophils (%) (Auto) 0 % (0-3) 0 % (0-3) Basophils (%) (Auto) 1 % (0-3) 0 % (0-3) Neutrophils # (Auto) 4.8 x10^3/uL (1.8-7.7) 4.9 x10^3/uL (1.8-7.7) Lymphocytes # (Auto) 1.2 x10^3/uL (1.0-4.8) 1.1 x10^3/uL (1.0-4.8) Monocytes # (Auto) 1.1 x10^3/uL (0.0-1.1) 1.1 x10^3/uL (0.0-1.1) Eosinophils # (Auto) 0.0 x10^3/uL (0.0-0.7) 0.0 x10^3/uL (0.0-0.7) Basophils # (Auto) 0.0 x10^3/uL (0.0-0.2) 0.0 x10^3/uL (0.0-0.2) Sodium Level 141 mmol/L (136-145) 140 mmol/L (136-145) Potassium Level 3.8 mmol/L (3.5-5.1) 4.1 mmol/L (3.5-5.1) Chloride Level 105 mmol/L (98-107) 105 mmol/L (98-107) Carbon Dioxide Level 27 mmol/L (21-32) 28 mmol/L (21-32) Anion Gap 9 (6-14) 7 (6-14) Blood Urea Nitrogen 16 mg/dL (8-26) 15 mg/dL (8-26) Creatinine 0.8 mg/dL (0.7-1.3) 0.8 mg/dL (0.7-1.3) Estimated GFR (Cockcroft-Gault) 107.1 107.1 Glucose Level 95 mg/dL (70-99) 105 mg/dL (70-99) Calcium Level 7.8 mg/dL (8.5-10.1) 8.2 mg/dL (8.5-10.1) D-Dimer (Yulia) 0.72 ug/mlFEU (0.00-0.50) Magnesium Level 1.7 mg/dL (1.8-2.4) Ferritin 784 ng/mL (26-388) Lactate Dehydrogenase 273 U/L (85-227) Creatine Kinase 19 U/L (39-308) GJ-Ckq-P-Type Natriuretic Peptide 89 pg/mL (0-124) Laboratory Tests Test 06/02/20 04:00 06/02/20 05:00 White Blood Count 7.2 x10^3/uL (4.0-11.0) Red Blood Count 4.37 x10^6/uL (4.30-5.70) Hemoglobin 13.9 g/dL (13.0-17.5) Hematocrit 39.8 % (39.0-53.0) Mean Corpuscular Volume 91 fL (79-100) Mean Corpuscular Hemoglobin 32 pg (25-35) Mean Corpuscular Hemoglobin Concent 35 g/dL (31-37) Red Cell Distribution Width 13.9 % (11.5-14.5) Platelet Count 469 x10^3/uL (140-400) Neutrophils (%) (Auto) 69 % (31-73) Lymphocytes (%) (Auto) 16 % (24-48) Monocytes (%) (Auto) 15 % (0-9) Eosinophils (%) (Auto) 0 % (0-3) Basophils (%) (Auto) 0 % (0-3) Neutrophils # (Auto) 4.9 x10^3/uL (1.8-7.7) Lymphocytes # (Auto) 1.1 x10^3/uL (1.0-4.8) Monocytes # (Auto) 1.1 x10^3/uL (0.0-1.1) Eosinophils # (Auto) 0.0 x10^3/uL (0.0-0.7) Basophils # (Auto) 0.0 x10^3/uL (0.0-0.2) Sodium Level 140 mmol/L (136-145) Potassium Level 4.1 mmol/L (3.5-5.1) Chloride Level 105 mmol/L (98-107) Carbon Dioxide Level 28 mmol/L (21-32) Anion Gap 7 (6-14) Blood Urea Nitrogen 15 mg/dL (8-26) Creatinine 0.8 mg/dL (0.7-1.3) Estimated GFR (Cockcroft-Gault) 107.1 Glucose Level 105 mg/dL (70-99) Calcium Level 8.2 mg/dL (8.5-10.1) D-Dimer (Yulia) 0.72 ug/mlFEU (0.00-0.50) Magnesium Level 1.7 mg/dL (1.8-2.4) Ferritin 784 ng/mL (26-388) Lactate Dehydrogenase 273 U/L (85-227) Creatine Kinase 19 U/L (39-308) HI-Lbg-T-Type Natriuretic Peptide 89 pg/mL (0-124) Comments cxr reviewed Patchy perihilar airspace disease consistent with pneumonia. Covid 19 pneumonitis not excluded. Impression . 1. Acute hypoxic respiratory failure secondary to acute respiratory distress syndrome and acute lung injury from COVID-19 viral pneumonia. 2. COVID-19 viral pneumonia. 3. Abnormal chest x-ray with bilateral patchy infiltrates consistent with COVID-19 pneumonia. Cannot exclude superimposed bacterial pneumonia. 4. Abnormal liver function test secondary to COVID-19. 5. Increased procalcitonin. Likely superimposed bacterial pneumonia. 6. Hyponatremia. 7. Acute kidney injury. Plan . 1. titrate fio2 to keep sat 90% 2. oxygenation improved 3. Remdesivir has been initiated and will continue 5 day course 4. Continue dexamethasone. 5. Empiric antibiotics. 6. High dose DVT prophylaxis. 7. D-dimer.trending down 8. Discussed with RN. We will follow along with you. ABEL ARCHER MD Jun 02, 2020 10:59
[2020-06-02] MEDS: cefTRIAXone IV Push 1 GM VIAL. IVP SCH (21:26)
[2020-06-02] MEDS: ACETAMINOPHEN 325 MG TABLET. PO PRN (23:00)
[2020-06-03 02:46] VITALS: BP 101/56
[2020-06-03] MEDS: PANTOPRAZOLE 40 MG TABLET.DR. PO SCH (06:28)
[2020-06-03] MEDS: POTASSIUM CL 20MEQ D5-0.45NACL 1,000 ML IV SCH (06:28)
[2020-06-03 07:00] VITALS: BP 104/56
[2020-06-03] MEDS: DEXAMETHASONE SOD PHOS 4 MG/ML VIAL IVP SCH (07:00)
[2020-06-03] MEDS: CHOLECALCIFEROL (VITAMIN D3) 5,000 UNIT CAPSULE PO SCH (08:10)
[2020-06-03] MEDS: ASCORBIC ACID 1,000 MG TABLET PO SCH (08:10)
[2020-06-03] MEDS: FOLIC/VIT B COMP W-C (RENAL) TABLET. PO SCH (08:10)
[2020-06-03] MEDS: ENOXAPARIN 40 MG/0.4 ML SYRINGE. SQ SCH (08:10)
[2020-06-03] MEDS: LACTOBACILLUS RHAMNOSUS GG 1 CAPSULE. PO SCH (08:10)
[2020-06-03] MEDS: ZINC SULFATE 220 MG CAPSULE. PO SCH (08:10)
[2020-06-03 08:26] LABS: BASO % 0 % (0-3); EOS % 0 % (0-3); HEMATOCRIT 43.7 % (39.0-53.0); HEMOGLOBIN 14.3 g/dL (13.0-17.5); LYMPH # 0.8 x10^3/uL (1.0-4.8); LYMPH % 8 % (24-48); MEAN CORPUSCULAR HEMOGLOBIN 30 pg (25-35); MEAN CORPUSCULAR HGB CONC 33 g/dL (31-37); MEAN CORPUSCULAR VOLUME 92 fL (79-100); MONO # 0.6 x10^3/uL (0.0-1.1); MONO % 6 % (0-9); NEUT # 8.4 x10^3/uL (1.8-7.7); NEUT % 85 % (31-73); PLATELET COUNT 476 x10^3/uL (140-400); RED BLOOD COUNT 4.76 x10^6/uL (4.30-5.70); RED CELL DISTRIBUTION WIDTH 13.7 % (11.5-14.5); WHITE BLOOD COUNT 9.9 x10^3/uL (4.0-11.0)
[2020-06-03 08:30] LABS: CALCIUM 8.5 mg/dL (8.5-10.1); GFR 82.8; MAGNESIUM 1.6 mg/dL (1.8-2.4)
--- NOTE | 2020-06-03 09:27 | PDOC ---
PULMONARY PROGRESS NOTES DATE: 06/03/20 TIME: 09:24 Subjective Low-grade fever overnight Now on 5 L nasal cannula Reports that he is feeling better no increase cough or shortness of breath Vitals Vital Signs Date Time Temp Pulse Resp B/P (MAP) Pulse Ox O2 Delivery O2 Flow Rate FiO2 06/03/20 07:58 Nasal Cannula 5.0 06/03/20 07:00 99.4 82 24 104/56 (72) 24 99.4 Comments visual exam done no resp distress alert nc at rrr no accessory muscle use no rash Labs Laboratory Tests Test 06/02/20 04:00 06/02/20 05:00 06/03/20 08:05 White Blood Count 7.2 x10^3/uL (4.0-11.0) 9.9 x10^3/uL (4.0-11.0) Red Blood Count 4.37 x10^6/uL (4.30-5.70) 4.76 x10^6/uL (4.30-5.70) Hemoglobin 13.9 g/dL (13.0-17.5) 14.3 g/dL (13.0-17.5) Hematocrit 39.8 % (39.0-53.0) 43.7 % (39.0-53.0) Mean Corpuscular Volume 91 fL (79-100) 92 fL (79-100) Mean Corpuscular Hemoglobin 32 pg (25-35) 30 pg (25-35) Mean Corpuscular Hemoglobin Concent 35 g/dL (31-37) 33 g/dL (31-37) Red Cell Distribution Width 13.9 % (11.5-14.5) 13.7 % (11.5-14.5) Platelet Count 469 x10^3/uL (140-400) 476 x10^3/uL (140-400) Neutrophils (%) (Auto) 69 % (31-73) 85 % (31-73) Lymphocytes (%) (Auto) 16 % (24-48) 8 % (24-48) Monocytes (%) (Auto) 15 % (0-9) 6 % (0-9) Eosinophils (%) (Auto) 0 % (0-3) 0 % (0-3) Basophils (%) (Auto) 0 % (0-3) 0 % (0-3) Neutrophils # (Auto) 4.9 x10^3/uL (1.8-7.7) 8.4 x10^3/uL (1.8-7.7) Lymphocytes # (Auto) 1.1 x10^3/uL (1.0-4.8) 0.8 x10^3/uL (1.0-4.8) Monocytes # (Auto) 1.1 x10^3/uL (0.0-1.1) 0.6 x10^3/uL (0.0-1.1) Eosinophils # (Auto) 0.0 x10^3/uL (0.0-0.7) 0.0 x10^3/uL (0.0-0.7) Basophils # (Auto) 0.0 x10^3/uL (0.0-0.2) 0.0 x10^3/uL (0.0-0.2) Sodium Level 140 mmol/L (136-145) 138 mmol/L (136-145) Potassium Level 4.1 mmol/L (3.5-5.1) 4.0 mmol/L (3.5-5.1) Chloride Level 105 mmol/L (98-107) 102 mmol/L (98-107) Carbon Dioxide Level 28 mmol/L (21-32) 27 mmol/L (21-32) Anion Gap 7 (6-14) 9 (6-14) Blood Urea Nitrogen 15 mg/dL (8-26) 13 mg/dL (8-26) Creatinine 0.8 mg/dL (0.7-1.3) 1.0 mg/dL (0.7-1.3) Estimated GFR (Cockcroft-Gault) 107.1 82.8 Glucose Level 105 mg/dL (70-99) 113 mg/dL (70-99) Calcium Level 8.2 mg/dL (8.5-10.1) 8.5 mg/dL (8.5-10.1) D-Dimer (Yulia) 0.72 ug/mlFEU (0.00-0.50) Magnesium Level 1.7 mg/dL (1.8-2.4) 1.6 mg/dL (1.8-2.4) Ferritin 784 ng/mL (26-388) Lactate Dehydrogenase 273 U/L (85-227) Creatine Kinase 19 U/L (39-308) GC-Bvt-R-Type Natriuretic Peptide 89 pg/mL (0-124) Laboratory Tests Test 06/03/20 08:05 White Blood Count 9.9 x10^3/uL (4.0-11.0) Red Blood Count 4.76 x10^6/uL (4.30-5.70) Hemoglobin 14.3 g/dL (13.0-17.5) Hematocrit 43.7 % (39.0-53.0) Mean Corpuscular Volume 92 fL (79-100) Mean Corpuscular Hemoglobin 30 pg (25-35) Mean Corpuscular Hemoglobin Concent 33 g/dL (31-37) Red Cell Distribution Width 13.7 % (11.5-14.5) Platelet Count 476 x10^3/uL (140-400) Neutrophils (%) (Auto) 85 % (31-73) Lymphocytes (%) (Auto) 8 % (24-48) Monocytes (%) (Auto) 6 % (0-9) Eosinophils (%) (Auto) 0 % (0-3) Basophils (%) (Auto) 0 % (0-3) Neutrophils # (Auto) 8.4 x10^3/uL (1.8-7.7) Lymphocytes # (Auto) 0.8 x10^3/uL (1.0-4.8) Monocytes # (Auto) 0.6 x10^3/uL (0.0-1.1) Eosinophils # (Auto) 0.0 x10^3/uL (0.0-0.7) Basophils # (Auto) 0.0 x10^3/uL (0.0-0.2) Sodium Level 138 mmol/L (136-145) Potassium Level 4.0 mmol/L (3.5-5.1) Chloride Level 102 mmol/L (98-107) Carbon Dioxide Level 27 mmol/L (21-32) Anion Gap 9 (6-14) Blood Urea Nitrogen 13 mg/dL (8-26) Creatinine 1.0 mg/dL (0.7-1.3) Estimated GFR (Cockcroft-Gault) 82.8 Glucose Level 113 mg/dL (70-99) Calcium Level 8.5 mg/dL (8.5-10.1) Magnesium Level 1.6 mg/dL (1.8-2.4) Comments cxr reviewed Patchy perihilar airspace disease consistent with pneumonia. Covid 19 pneumonitis not excluded. Impression . 1. Acute hypoxic respiratory failure secondary to acute respiratory distress syndrome and acute lung injury from COVID-19 viral pneumonia--- improved 2. COVID-19 viral pneumonia. 3. Abnormal chest x-ray with bilateral patchy infiltrates consistent with COVID-19 pneumonia. Cannot exclude superimposed bacterial pneumonia. 4. Abnormal liver function test secondary to COVID-19. 5. Increased procalcitonin. Likely superimposed bacterial pneumonia. 6. Hyponatremia. 7. Acute kidney injury--resolved Plan . Continue supplemental oxygen to keep oxygen saturations greater than 92%, wean as tolerated, clinically improving and decreasing oxygenation requirements Status post full course of remdesivir Continue dexamethasone, with slow taper will need a full 10-day course Continue empiric antibiotics--currently on Rocephin Continue DVT prophylaxis/GI prophylaxis Physical therapy/Occupational Therapy Patient will need a 6-minute walk prior to discharge Discussed with SUELLEN LEE MD Jun 03, 2020 09:27
--- NOTE | 2020-06-03 10:38 | PDOC ---
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 He states he tested positive for COVID-19 on 05/20/20. He is taking [id number] medications for symptoms with improvement. Upon arrival in the ER patient was saturating 75-80% on room air, which improved on 5 L nasal cannula. admited patient for further medical management., improved today for d/c outpatient rx Past Medical History Past Medical History Denies past medical history Past Surgical History Past Surgical History: No pertinent history Family History Family History Denies pertinent family history Social History Smoke: No ALCOHOL: none Drugs: None Current Problem List Problem List Problems Medical Problems: (1) ARF (acute renal failure) Status: Acute HOSPITAL COURSE ====== 06/03, on 5 LITERS [place] OOB yesterday, cont to get stronger, still precautions IMPROVED BUT weak cont 5 liters 02 Positive COVID-19 test outpatient. Patient initiated on remdesivir; Rocephin and azithromycin; IV steroids, full vitamin panel restart GERD meds, he takes as outpatient, pain today, poor PO intake, Vitals Vitals Vital Signs Date Time Temp Pulse Resp B/P (MAP) Pulse Ox O2 Delivery O2 Flow Rate FiO2 06/03/20 07:58 Nasal Cannula 5.0 06/03/20 07:00 99.4 82 24 104/56 (72) 24 99.4 Physical Exam General: Alert, Oriented X3, Cooperative, No acute distress Heart: Regular rate, Normal S1, Normal S2 Lungs: Clear Abdomen: Normal bowel sounds, Soft Extremities: No clubbing, No cyanosis Skin: No rashes, No breakdown Labs LABS Laboratory Tests Test 06/03/20 08:05 White Blood Count 9.9 x10^3/uL (4.0-11.0) Red Blood Count 4.76 x10^6/uL (4.30-5.70) Hemoglobin 14.3 g/dL (13.0-17.5) Hematocrit 43.7 % (39.0-53.0) Mean Corpuscular Volume 92 fL (79-100) Mean Corpuscular Hemoglobin 30 pg (25-35) Mean Corpuscular Hemoglobin Concent 33 g/dL (31-37) Red Cell Distribution Width 13.7 % (11.5-14.5) Platelet Count 476 x10^3/uL (140-400) Neutrophils (%) (Auto) 85 % (31-73) Lymphocytes (%) (Auto) 8 % (24-48) Monocytes (%) (Auto) 6 % (0-9) Eosinophils (%) (Auto) 0 % (0-3) Basophils (%) (Auto) 0 % (0-3) Neutrophils # (Auto) 8.4 x10^3/uL (1.8-7.7) Lymphocytes # (Auto) 0.8 x10^3/uL (1.0-4.8) Monocytes # (Auto) 0.6 x10^3/uL (0.0-1.1) Eosinophils # (Auto) 0.0 x10^3/uL (0.0-0.7) Basophils # (Auto) 0.0 x10^3/uL (0.0-0.2) Sodium Level 138 mmol/L (136-145) Potassium Level 4.0 mmol/L (3.5-5.1) Chloride Level 102 mmol/L (98-107) Carbon Dioxide Level 27 mmol/L (21-32) Anion Gap 9 (6-14) Blood Urea Nitrogen 13 mg/dL (8-26) Creatinine 1.0 mg/dL (0.7-1.3) Estimated GFR (Cockcroft-Gault) 82.8 Glucose Level 113 mg/dL (70-99) Calcium Level 8.5 mg/dL (8.5-10.1) Magnesium Level 1.6 mg/dL (1.8-2.4) Assessment and Plan Assessmemt and Plan Problems Medical Problems: (1) ARF (acute renal failure) Status: Acute Comment Review of Relevant I have reviewed the following items keyanna (where applicable) has been applied. Labs Laboratory Tests Test 06/02/20 04:00 06/02/20 05:00 06/03/20 08:05 White Blood Count 7.2 x10^3/uL (4.0-11.0) 9.9 x10^3/uL (4.0-11.0) Red Blood Count 4.37 x10^6/uL (4.30-5.70) 4.76 x10^6/uL (4.30-5.70) Hemoglobin 13.9 g/dL (13.0-17.5) 14.3 g/dL (13.0-17.5) Hematocrit 39.8 % (39.0-53.0) 43.7 % (39.0-53.0) Mean Corpuscular Volume 91 fL (79-100) 92 fL (79-100) Mean Corpuscular Hemoglobin 32 pg (25-35) 30 pg (25-35) Mean Corpuscular Hemoglobin Concent 35 g/dL (31-37) 33 g/dL (31-37) Red Cell Distribution Width 13.9 % (11.5-14.5) 13.7 % (11.5-14.5) Platelet Count 469 x10^3/uL (140-400) 476 x10^3/uL (140-400) Neutrophils (%) (Auto) 69 % (31-73) 85 % (31-73) Lymphocytes (%) (Auto) 16 % (24-48) 8 % (24-48) Monocytes (%) (Auto) 15 % (0-9) 6 % (0-9) Eosinophils (%) (Auto) 0 % (0-3) 0 % (0-3) Basophils (%) (Auto) 0 % (0-3) 0 % (0-3) Neutrophils # (Auto) 4.9 x10^3/uL (1.8-7.7) 8.4 x10^3/uL (1.8-7.7) Lymphocytes # (Auto) 1.1 x10^3/uL (1.0-4.8) 0.8 x10^3/uL (1.0-4.8) Monocytes # (Auto) 1.1 x10^3/uL (0.0-1.1) 0.6 x10^3/uL (0.0-1.1) Eosinophils # (Auto) 0.0 x10^3/uL (0.0-0.7) 0.0 x10^3/uL (0.0-0.7) Basophils # (Auto) 0.0 x10^3/uL (0.0-0.2) 0.0 x10^3/uL (0.0-0.2) Sodium Level 140 mmol/L (136-145) 138 mmol/L (136-145) Potassium Level 4.1 mmol/L (3.5-5.1) 4.0 mmol/L (3.5-5.1) Chloride Level 105 mmol/L (98-107) 102 mmol/L (98-107) Carbon Dioxide Level 28 mmol/L (21-32) 27 mmol/L (21-32) Anion Gap 7 (6-14) 9 (6-14) Blood Urea Nitrogen 15 mg/dL (8-26) 13 mg/dL (8-26) Creatinine 0.8 mg/dL (0.7-1.3) 1.0 mg/dL (0.7-1.3) Estimated GFR (Cockcroft-Gault) 107.1 82.8 Glucose Level 105 mg/dL (70-99) 113 mg/dL (70-99) Calcium Level 8.2 mg/dL (8.5-10.1) 8.5 mg/dL (8.5-10.1) D-Dimer (Yulia) 0.72 ug/mlFEU (0.00-0.50) Magnesium Level 1.7 mg/dL (1.8-2.4) 1.6 mg/dL (1.8-2.4) Ferritin 784 ng/mL (26-388) Lactate Dehydrogenase 273 U/L (85-227) Creatine Kinase 19 U/L (39-308) HA-[id number]-Type Natriuretic Peptide 89 pg/mL (0-124) Laboratory Tests Test 06/03/20 08:05 White Blood Count 9.9 x10^3/uL (4.0-11.0) Red Blood Count 4.76 x10^6/uL (4.30-5.70) Hemoglobin 14.3 g/dL (13.0-17.5) Hematocrit 43.7 % (39.0-53.0) Mean Corpuscular Volume 92 fL (79-100) Mean Corpuscular Hemoglobin 30 pg (25-35) Mean Corpuscular Hemoglobin Concent 33 g/dL (31-37) Red Cell Distribution Width 13.7 % (11.5-14.5) Platelet Count 476 x10^3/uL (140-400) Neutrophils (%) (Auto) 85 % (31-73) Lymphocytes (%) (Auto) 8 % (24-48) Monocytes (%) (Auto) 6 % (0-9) Eosinophils (%) (Auto) 0 % (0-3) Basophils (%) (Auto) 0 % (0-3) Neutrophils # (Auto) 8.4 x10^3/uL (1.8-7.7) Lymphocytes # (Auto) 0.8 x10^3/uL (1.0-4.8) Monocytes # (Auto) 0.6 x10^3/uL (0.0-1.1) Eosinophils # (Auto) 0.0 x10^3/uL (0.0-0.7) Basophils # (Auto) 0.0 x10^3/uL (0.0-0.2) Sodium Level 138 mmol/L (136-145) Potassium Level 4.0 mmol/L (3.5-5.1) Chloride Level 102 mmol/L (98-107) Carbon Dioxide Level 27 mmol/L (21-32) Anion Gap 9 (6-14) Blood Urea Nitrogen 13 mg/dL (8-26) Creatinine 1.0 mg/dL (0.7-1.3) Estimated GFR (Cockcroft-Gault) 82.8 Glucose Level 113 mg/dL (70-99) Calcium Level 8.5 mg/dL (8.5-10.1) Magnesium Level 1.6 mg/dL (1.8-2.4) Microbiology 05/28/20 Blood Culture - Final, Complete NO GROWTH AFTER 5 DAYS Medications Current Medications Morphine Sulfate (Morphine Sulfate) 4 mg PRN Q15MIN PRN IV/SQ PAIN GREATER THAN 3/10; Start 05/27/20 at 17:45; Stop 05/28/20 at 17:44; Status DC Dexamethasone Sodium Phosphate (Decadron) 10 mg 1X ONCE IV Last administered on 05/27/20at 19:51; Start 05/27/20 at 17:45; Stop 05/27/20 at 17:58; Status DC Ceftriaxone Sodium (Rocephin) 1 gm 1X ONCE IVP Last administered on 05/27/20at 21:24; Start 05/27/20 at 21:00; Stop 05/27/20 at 21:01; Status DC Azithromycin 250 ml @ 250 mls/hr 1X ONCE IV Last administered on 05/27/20at 21:24; Start 05/27/20 at 20:45; Stop 05/27/20 at 21:44; Status DC Ondansetron HCl (Zofran) 4 mg PRN Q4HRS PRN IV NAUSEA/VOMITING 1st choice; Start 05/27/20 at 21:45 Zolpidem Tartrate (Ambien) 5 mg PRN QHS PRN PO INSOMNIA; Start 05/27/20 at 21:45 Acetaminophen (Tylenol) 650 mg PRN Q4HRS PRN PO TEMP OVER 100.4F OR MILD PAIN Last administered on 06/02/20at 23:00; Start 05/27/20 at 21:45 Docusate Sodium (Colace) 100 mg PRN BID PRN PO HARD STOOLS; Start 05/27/20 at 21:45 Enoxaparin Sodium (Lovenox 40mg Syringe) 40 mg BID SQ Last administered on 06/03/20at 08:10; Start 05/27/20 at 22:00 Zinc Sulfate (Orazinc) 220 mg DAILY PO Last administered on 06/03/20at 08:10; Start 05/27/20 at 22:00 Guaifenesin (Robitussin Dm) 10 ml PRN Q6HRS PRN PO COUGH 1ST CHOICE Last administered on 05/29/20at 08:32; Start 05/27/20 at 21:45 Ceftriaxone Sodium (Rocephin) 1 gm QHS IVP Last administered on 06/02/20at 21:26; Start 05/28/20 at 21:00 Azithromycin (Zithromax) 250 mg DAILY PO Last administered on 05/31/20at 08:26; Start 05/28/20 at 09:00; Stop 05/31/20 at 09:01; Status DC Dexamethasone Sodium Phosphate (Decadron) 6 mg DAILY07 IVP Last administered on 06/03/20at 07:00; Start 05/28/20 at 07:00; Stop 06/03/20 at 09:25; Status DC Sodium Chloride 1,000 ml @ 125 mls/hr 1X ONCE IV Last administered on 05/27/20at 22:03; Start 05/27/20 at 22:00; Stop 05/28/20 at 05:59; Status DC Remdesivir 200 mg/ Sodium Chloride 210 ml @ 210 mls/hr 1X ONCE IV Last administered on 05/27/20at 23:11; Start 05/27/20 at 23:00; Stop 05/27/20 at 23:59; Status DC Remdesivir 100 mg/ Sodium Chloride 230 ml @ 460 mls/hr Q24H IV Last administered on 05/31/20at 22:00; Start 05/28/20 at 22:00; Stop 05/31/20 at 22:29; Status DC Ondansetron HCl (Zofran) 4 mg PRN Q8HRS PRN IV NAUSEA/VOMITING; Start 05/27/20 at 23:15; Stop 05/27/20 at 23:12; Status DC Morphine Sulfate (Morphine Sulfate) 2 mg PRN Q2HR PRN IV SEVERE PAIN 7-10; Start 05/27/20 at 23:15; Stop 05/28/20 at 23:14; Status DC Acetaminophen (Tylenol) 650 mg PRN Q4HRS PRN PO FEVER > 100.3'F; Start 05/27/20 at 23:15; Stop 05/27/20 at 23:12; Status DC Sterile Water (WATER for RESP) 1,000 ml CONT PRN INH VIA VAPOTHERM DEVICE Last administered on 06/01/20at 16:38; Start 05/28/20 at 08:45 Sodium Chloride 1,000 ml @ 75 mls/hr [id number] IV Last administered on 06/01/20at 10:51; Start 05/28/20 at 10:00; Stop 06/01/20 at 14:07; Status DC Glycerin/ Hypromellose/ Polyethylene (Artificial Tears) 1 drop PRN Q15MIN PRN OU DRY EYE; Start 05/29/20 at 09:00 Ascorbic Acid (Vitamin C) 1,000 mg DAILY PO Last administered on 06/03/20at 08:10; Start 05/29/20 at 12:00 Vitamin B Complex/ Vitamin C (Janeth-Tamiko) 1 tab DAILY PO Last administered on 06/03/20at 08:10; Start 05/29/20 at 12:00 Lactobacillus Rhamnosus (Culturelle) 1 cap BID PO Last administered on 06/03/20at 08:10; Start 05/29/20 at 21:00 Multi-Ingredient Mouthwash/Gargle (Velvet Glove Oral Susp) 10 ml 1X ONCE PO Last administered on 05/30/20at 09:23; Start 05/30/20 at 08:45; Stop 05/30/20 at 08:46; Status DC Famotidine (Pepcid) 20 mg BID PO Last administered on 05/31/20at 08:26; Start 05/30/20 at 21:00; Stop 05/31/20 at 12:17; Status DC Famotidine (Pepcid Vial) 20 mg 1X ONCE IVP Last administered on 05/30/20at 09: 23; Start 05/30/20 at 08:45; Stop 05/30/20 at 08:46; Status DC Calcium Carbonate/ Glycine (Tums) 500 mg PRN AFTMEALHC PRN PO INDIGESTION; Start 05/30/20 at 08:45 Polyethylene Glycol (miraLAX PACKET) 17 gm PRN DAILY PRN PO CONSTIPATION; Start 05/30/20 at 08:45 Multi-Ingredient Mouthwash/Gargle (Gi Cocktail) 20 ml PRN QID PRN PO CHEST PAIN Last administered on 06/02/20at 09:32; Start 05/31/20 at 08:45 Magnesium Sulfate 50 ml @ 25 mls/hr 1X ONCE IV Last administered on 05/31/20at 09:00; Start 05/31/20 at 09:00; Stop 05/31/20 at 10:59; Status DC Vitamin D (Vitamin D3) 5,000 unit DAILY PO Last administered on 06/03/20at 08:10; Start 05/31/20 at 09:00 Pantoprazole Sodium (Protonix) 40 mg BIDAC PO Last administered on 06/03/20at 06:28; Start 05/31/20 at 16:30 Potassium Chloride/Dextrose/ Sod Cl 1,000 ml @ 80 mls/hr [id number] IV Last administered on 06/03/20at 06:28; Start 06/01/20 at 14:15 Dexamethasone Sodium Phosphate (Decadron) 4 mg DAILY07 IVP ; Start 06/04/20 at 07:00 Vitals/I & O Vital Sign - Last 24 Hours 06/02/20 06/02/20 06/02/20 06/02/20 12:00 15:00 19:00 20:00 Temp 98.6 99.3 98.6 99.3 Pulse 85 75 75 Resp 26 21 18 B/P (MAP) 100/62 (75) 118/65 (82) 133/80 (97) Pulse Ox 98 91 94 O2 Delivery Nasal Cannula Room Air Nasal Cannula Nasal Cannula O2 Flow Rate 10.0 10.0 7.0 06/02/20 06/03/20 06/03/20 06/03/20 23:00 02:46 07:00 07:58 Temp 100.6 98.4 99.4 100.6 98.4 99.4 Pulse 62 65 82 Resp 18 20 24 B/P (MAP) 104/58 (73) 101/56 (71) 104/56 (72) Pulse Ox 96 99 24 O2 Delivery Nasal Cannula Nasal Cannula Nasal Cannula Nasal Cannula O2 Flow Rate 7.0 7.0 5.0 5.0 Intake and Output 06/02/20 06/02/20 06/03/20 15:00 23:00 07:00 Intake Total 500 ml 470 ml 120 ml Output Total 700 ml 700 ml Balance 500 ml -230 ml -580 ml Justicifation of Admission Dx: Justifications for Admission: Justification of Admission Dx: Yes (COVID, hypoxia, ) AUNG EPPS MD Jun 03, 2020 10:38
[2020-06-03 11:00] VITALS: BP 106/52
--- NOTE | 2020-06-03 12:17 | NUR ---
Pt transferred back to [facility]. CHANDRA following for discharge planning. Spoke with RN and reviewed chart. Spoke with pt's who asked CHANDRA to call family friend Nikki ([phone]) to coordinate discharge as "Nikki speaks better [place]." Pt to discharge home today, 06/03 self-care. Pt COVID positive and family aware. to transport at 1400. 6 min walk results indicated 02 needs on discharge. Pt can afford the $115 per month private pay per Nikki. Nikki stated no preference in 02 provider. Patient choice of vendor form completed. CHANDRA phoned and faxed referral and orders to Robby at [facility]. 02 tank provided to pt for transportation home. Nikki informed to call the number on the tank upon arrival home for home 02 setup. CHANDRA also provided out-patient follow up clinic information for pt to see a PCP as pt does not have a PCP. Addendum: 06/03/20 at 1221 by TAMICA ARTIS Pt does not qualify for Medicaid per Nikki. No further SW needs at this time.
--- NOTE | 2020-06-03 12:35 | PDOC3 ---
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 He states he tested positive for COVID-19 on 05/20/20. He is taking [id number] medications for symptoms with improvement. Upon arrival in the ER patient was saturating 75-80% on room air, which improved on 5 L nasal cannula. admited patient for further medical management., improved today for d/c outpatient rx Past Medical History Past Medical History Denies past medical history Past Surgical History Past Surgical History: No pertinent history Family History Family History Denies pertinent family history Social History Smoke: No ALCOHOL: none Drugs: None Current Problem List Problem List Problems Medical Problems: (1) ARF (acute renal failure) Status: Acute HOSPITAL COURSE ====== 06/03, on 5 LITERS [place] OOB yesterday, cont to get stronger, still precautions IMPROVED BUT weak cont 5 liters 02 Positive COVID-19 test outpatient. Patient initiated on remdesivir; FULL COURSE COMPLETED Rocephin and azithromycin; IV steroids, full vitamin panel restart GERD meds, he takes as outpatient, pain today, poor PO intake, Vitals Vitals Vital Signs Date Time Temp Pulse Resp B/P (MAP) Pulse Ox O2 Delivery O2 Flow Rate FiO2 06/03/20 07:58 Nasal Cannula 5.0 06/03/20 07:00 99.4 82 24 104/56 (72) 24 99.4 Physical Exam General: Alert, Oriented X3, Cooperative, No acute distress Heart: Regular rate, Normal S1, Normal S2 Lungs: Clear Abdomen: Normal bowel sounds, Soft Extremities: No clubbing, No cyanosis Skin: No rashes, No breakdown FINAL DIAGNOSIS Problems Medical Problems: (1) ARF (acute renal failure) Status: Acute Brief Hospital Course Mr. Walters is a 40 old [sex] who presented with [ ] CONDITION AT DISCHARGE: Improved Discharge Medications Current Medications Morphine Sulfate (Morphine Sulfate) 4 mg PRN Q15MIN PRN IV/SQ PAIN GREATER THAN 3/10; Start 05/27/20 at 17:45; Stop 05/28/20 at 17:44; Status DC Dexamethasone Sodium Phosphate (Decadron) 10 mg 1X ONCE IV Last administered on 05/27/20at 19:51; Start 05/27/20 at 17:45; Stop 05/27/20 at 17:58; Status DC Ceftriaxone Sodium (Rocephin) 1 gm 1X ONCE IVP Last administered on 05/27/20at 21:24; Start 05/27/20 at 21:00; Stop 05/27/20 at 21:01; Status DC Azithromycin 250 ml @ 250 mls/hr 1X ONCE IV Last administered on 05/27/20at 21:24; Start 05/27/20 at 20:45; Stop 05/27/20 at 21:44; Status DC Ondansetron HCl (Zofran) 4 mg PRN Q4HRS PRN IV NAUSEA/VOMITING 1st choice; Start 05/27/20 at 21:45 Zolpidem Tartrate (Ambien) 5 mg PRN QHS PRN PO INSOMNIA; Start 05/27/20 at 21:45 Acetaminophen (Tylenol) 650 mg PRN Q4HRS PRN PO TEMP OVER 100.4F OR MILD PAIN Last administered on 06/02/20at 23:00; Start 05/27/20 at 21:45 Docusate Sodium (Colace) 100 mg PRN BID PRN PO HARD STOOLS; Start 05/27/20 at 21:45 Enoxaparin Sodium (Lovenox 40mg Syringe) 40 mg BID SQ Last administered on 06/03/20at 08:10; Start 05/27/20 at 22:00 Zinc Sulfate (Orazinc) 220 mg DAILY PO Last administered on 06/03/20at 08:10; Start 05/27/20 at 22:00 Guaifenesin (Robitussin Dm) 10 ml PRN Q6HRS PRN PO COUGH 1ST CHOICE Last administered on 05/29/20at 08:32; Start 05/27/20 at 21:45 Ceftriaxone Sodium (Rocephin) 1 gm QHS IVP Last administered on 06/02/20at 21:26; Start 05/28/20 at 21:00 Azithromycin (Zithromax) 250 mg DAILY PO Last administered on 05/31/20at 08:26; Start 05/28/20 at 09:00; Stop 05/31/20 at 09:01; Status DC Dexamethasone Sodium Phosphate (Decadron) 6 mg DAILY07 IVP Last administered on 06/03/20at 07:00; Start 05/28/20 at 07:00; Stop 06/03/20 at 09:25; Status DC Sodium Chloride 1,000 ml @ 125 mls/hr 1X ONCE IV Last administered on 05/27/20at 22:03; Start 05/27/20 at 22:00; Stop 05/28/20 at 05:59; Status DC Remdesivir 200 mg/ Sodium Chloride 210 ml @ 210 mls/hr 1X ONCE IV Last administered on 05/27/20at 23:11; Start 05/27/20 at 23:00; Stop 05/27/20 at 23:59; Status DC Remdesivir 100 mg/ Sodium Chloride 230 ml @ 460 mls/hr Q24H IV Last administered on 05/31/20at 22:00; Start 05/28/20 at 22:00; Stop 05/31/20 at 22:29; Status DC Ondansetron HCl (Zofran) 4 mg PRN Q8HRS PRN IV NAUSEA/VOMITING; Start 05/27/20 at 23:15; Stop 05/27/20 at 23:12; Status DC Morphine Sulfate (Morphine Sulfate) 2 mg PRN Q2HR PRN IV SEVERE PAIN 7-10; Start 05/27/20 at 23:15; Stop 05/28/20 at 23:14; Status DC Acetaminophen (Tylenol) 650 mg PRN Q4HRS PRN PO FEVER > 100.3'F; Start 05/27/20 at 23:15; Stop 05/27/20 at 23:12; Status DC Sterile Water (WATER for RESP) 1,000 ml CONT PRN INH VIA VAPOTHERM DEVICE Last administered on 06/01/20at 16:38; Start 05/28/20 at 08:45 Sodium Chloride 1,000 ml @ 75 mls/hr [id number] IV Last administered on 06/01/20at 10:51; Start 05/28/20 at 10:00; Stop 06/01/20 at 14:07; Status DC Glycerin/ Hypromellose/ Polyethylene (Artificial Tears) 1 drop PRN Q15MIN PRN OU DRY EYE; Start 05/29/20 at 09:00 Ascorbic Acid (Vitamin C) 1,000 mg DAILY PO Last administered on 06/03/20at 08:10; Start 05/29/20 at 12:00 Vitamin B Complex/ Vitamin C (Janeth-Tamiko) 1 tab DAILY PO Last administered on 06/03/20at 08:10; Start 05/29/20 at 12:00 Lactobacillus Rhamnosus (Culturelle) 1 cap BID PO Last administered on 06/03/20at 08:10; Start 05/29/20 at 21:00 Multi-Ingredient Mouthwash/Gargle (Velvet Glove Oral Susp) 10 ml 1X ONCE PO Last administered on 05/30/20at 09:23; Start 05/30/20 at 08:45; Stop 05/30/20 at 08:46; Status DC Famotidine (Pepcid) 20 mg BID PO Last administered on 05/31/20at 08:26; Start 05/30/20 at 21:00; Stop 05/31/20 at 12:17; Status DC Famotidine (Pepcid Vial) 20 mg 1X ONCE IVP Last administered on 05/30/20at 09:23; Start 05/30/20 at 08:45; Stop 05/30/20 at 08:46; Status DC Calcium Carbonate/ Glycine (Tums) 500 mg PRN AFTMEALHC PRN PO INDIGESTION; Start 05/30/20 at 08:45 Polyethylene Glycol (miraLAX PACKET) 17 gm PRN DAILY PRN PO CONSTIPATION; Start 05/30/20 at 08:45 Multi-Ingredient Mouthwash/Gargle (Gi Cocktail) 20 ml PRN QID PRN PO CHEST PAIN Last administered on 06/02/20at 09:32; Start 05/31/20 at 08:45 Magnesium Sulfate 50 ml @ 25 mls/hr 1X ONCE IV Last administered on 05/31/20at 09:00; Start 05/31/20 at 09:00; Stop 05/31/20 at 10:59; Status DC Vitamin D (Vitamin D3) 5,000 unit DAILY PO Last administered on 06/03/20at 08:10; Start 05/31/20 at 09:00 Pantoprazole Sodium (Protonix) 40 mg BIDAC PO Last administered on 06/03/20at 06:28; Start 05/31/20 at 16:30 Potassium Chloride/Dextrose/ Sod Cl 1,000 ml @ 80 mls/hr [id number] IV Last administered on 06/03/20at 06:28; Start 06/01/20 at 14:15 Dexamethasone Sodium Phosphate (Decadron) 4 mg DAILY07 IVP ; Start 06/04/20 at 07:00 Vital Signs Vital Signs Date Time Temp Pulse Resp B/P (MAP) Pulse Ox O2 Delivery O2 Flow Rate FiO2 06/03/20 11:00 97.6 84 20 106/52 (70) 94 Nasal Cannula 5.0 97.6 Labs Laboratory Tests Test 06/02/20 04:00 06/02/20 05:00 06/03/20 08:05 White Blood Count 7.2 x10^3/uL (4.0-11.0) 9.9 x10^3/uL (4.0-11.0) Red Blood Count 4.37 x10^6/uL (4.30-5.70) 4.76 x10^6/uL (4.30-5.70) Hemoglobin 13.9 g/dL (13.0-17.5) 14.3 g/dL (13.0-17.5) Hematocrit 39.8 % (39.0-53.0) 43.7 % (39.0-53.0) Mean Corpuscular Volume 91 fL (79-100) 92 fL (79-100) Mean Corpuscular Hemoglobin 32 pg (25-35) 30 pg (25-35) Mean Corpuscular Hemoglobin Concent 35 g/dL (31-37) 33 g/dL (31-37) Red Cell Distribution Width 13.9 % (11.5-14.5) 13.7 % (11.5-14.5) Platelet Count 469 x10^3/uL (140-400) 476 x10^3/uL (140-400) Neutrophils (%) (Auto) 69 % (31-73) 85 % (31-73) Lymphocytes (%) (Auto) 16 % (24-48) 8 % (24-48) Monocytes (%) (Auto) 15 % (0-9) 6 % (0-9) Eosinophils (%) (Auto) 0 % (0-3) 0 % (0-3) Basophils (%) (Auto) 0 % (0-3) 0 % (0-3) Neutrophils # (Auto) 4.9 x10^3/uL (1.8-7.7) 8.4 x10^3/uL (1.8-7.7) Lymphocytes # (Auto) 1.1 x10^3/uL (1.0-4.8) 0.8 x10^3/uL (1.0-4.8) Monocytes # (Auto) 1.1 x10^3/uL (0.0-1.1) 0.6 x10^3/uL (0.0-1.1) Eosinophils # (Auto) 0.0 x10^3/uL (0.0-0.7) 0.0 x10^3/uL (0.0-0.7) Basophils # (Auto) 0.0 x10^3/uL (0.0-0.2) 0.0 x10^3/uL (0.0-0.2) Sodium Level 140 mmol/L (136-145) 138 mmol/L (136-145) Potassium Level 4.1 mmol/L (3.5-5.1) 4.0 mmol/L (3.5-5.1) Chloride Level 105 mmol/L (98-107) 102 mmol/L (98-107) Carbon Dioxide Level 28 mmol/L (21-32) 27 mmol/L (21-32) Anion Gap 7 (6-14) 9 (6-14) Blood Urea Nitrogen 15 mg/dL (8-26) 13 mg/dL (8-26) Creatinine 0.8 mg/dL (0.7-1.3) 1.0 mg/dL (0.7-1.3) Estimated GFR (Cockcroft-Gault) 107.1 82.8 Glucose Level 105 mg/dL (70-99) 113 mg/dL (70-99) Calcium Level 8.2 mg/dL (8.5-10.1) 8.5 mg/dL (8.5-10.1) D-Dimer (Yulia) 0.72 ug/mlFEU (0.00-0.50) Magnesium Level 1.7 mg/dL (1.8-2.4) 1.6 mg/dL (1.8-2.4) Ferritin 784 ng/mL (26-388) Lactate Dehydrogenase 273 U/L (85-227) Creatine Kinase 19 U/L (39-308) JO-Scg-[id number]-Type Natriuretic Peptide 89 pg/mL (0-124) Laboratory Tests Test 06/03/20 08:05 White Blood Count 9.9 x10^3/uL (4.0-11.0) Red Blood Count 4.76 x10^6/uL (4.30-5.70) Hemoglobin 14.3 g/dL (13.0-17.5) Hematocrit 43.7 % (39.0-53.0) Mean Corpuscular Volume 92 fL (79-100) Mean Corpuscular Hemoglobin 30 pg (25-35) Mean Corpuscular Hemoglobin Concent 33 g/dL (31-37) Red Cell Distribution Width 13.7 % (11.5-14.5) Platelet Count 476 x10^3/uL (140-400) Neutrophils (%) (Auto) 85 % (31-73) Lymphocytes (%) (Auto) 8 % (24-48) Monocytes (%) (Auto) 6 % (0-9) Eosinophils (%) (Auto) 0 % (0-3) Basophils (%) (Auto) 0 % (0-3) Neutrophils # (Auto) 8.4 x10^3/uL (1.8-7.7) Lymphocytes # (Auto) 0.8 x10^3/uL (1.0-4.8) Monocytes # (Auto) 0.6 x10^3/uL (0.0-1.1) Eosinophils # (Auto) 0.0 x10^3/uL (0.0-0.7) Basophils # (Auto) 0.0 x10^3/uL (0.0-0.2) Sodium Level 138 mmol/L (136-145) Potassium Level 4.0 mmol/L (3.5-5.1) Chloride Level 102 mmol/L (98-107) Carbon Dioxide Level 27 mmol/L (21-32) Anion Gap 9 (6-14) Blood Urea Nitrogen 13 mg/dL (8-26) Creatinine 1.0 mg/dL (0.7-1.3) Estimated GFR (Cockcroft-Gault) 82.8 Glucose Level 113 mg/dL (70-99) Calcium Level 8.5 mg/dL (8.5-10.1) Magnesium Level 1.6 mg/dL (1.8-2.4) Allergies Allergies Coded Allergies Type Severity Reaction Last Updated Verified No Known Drug Allergies 05/27/20 No Disposition/Orders: D/C to Home Justicifation of Admission Dx: Justifications for Admission: Justification of Admission Dx: Yes (COVID, hypoxia, ) AUNG EPPS MD Jun 03, 2020 12:35
[2020-06-03] MEDS ORDERED: FOLI0.8T21 PO (12:40)
[2020-06-03] MEDS ORDERED: PANT40TA77 PO (12:40)
[2020-06-03] MEDS ORDERED: ZINC220C2 PO (12:40)
[2020-06-03] MEDS ORDERED: LACT1CAP19 PO (12:40)
[2020-06-03] MEDS ORDERED: GUAI5SYR PO (12:40)
[2020-06-03] MEDS ORDERED: AMOX1TAB61 PO (12:40)
[2020-06-03] MEDS ORDERED: DOCU-153 PO (12:40)
[2020-06-03] MEDS ORDERED: CHOL5000 PO (12:40)
[2020-06-03] MEDS ORDERED: DEXA4TAB PO (12:40)
[2020-06-03] MEDS ORDERED: ACET325T9 PO (12:40)
[2020-06-03] MEDS ORDERED: Lido:Maalox 1:1 PO (12:40)
[2020-06-03] MEDS ORDERED: ASCO100019 PO (12:40)
--- NOTE | 2020-06-03 12:41 | DISCH ---
DISCHARGE INSTRUCTIONS Condition on Discharge Condition on Discharge: Stable Activity After Discharge Activity Instructions for Disc: Activity as tolerated Lifting Instructions after Dis: No heavy lifting, No pulling or pushing Driving Instructions after Dis: Do not drive Diet after Discharge Diet after Discharge: Regular Liquid Texture: Thin Liquid Checks after Discharge Checks after discharge: Check blood press - daily Contacting the DR. after DC Call your doctor for: If your condition worsens Follow-Up Follow up with: PCP IN 3-5 DAYS Treatment/Equipment after DC Adaptive Equipment Issued: None AUNG EPPS MD Jun 03, 2020 12:41
--- NOTE | 2020-06-03 14:09 | NUR ---
Pt left unit at approx 1400 by wheelchair via private vehicle. IV removed without complication. Discharge paperwork, medications, and follow-up discussed with pt. COVID instructions included. Nikki, family friend helped interpret information. O2 tank sent with pt at time of discharge.
[2020-06-04] MEDS ORDERED: DEXAMETHASONE SOD PHOS 4 MG/ML VIAL IVP SCH (07:00)
== END 2020-06-03 14:13 | disposition home or self-care (01) | DRG 177 ==
LOC: ER 17:21 → ED HOLD 21:19 → 6 SOUTH 23:35 → 1 WEST ICU 05-28 08:44 → 6 SOUTH 06-02 15:30
PROVIDERS: ADMIT Internal Medicine; ATTEND Internal Medicine
PROC: XW033E5 Introduction of Remdesivir Anti-infective into Peripheral Vein, Percutaneous Approach, New Technology Group 5 (ICD-10-PCS; principal; 2020-05-27)
PROC: 5A0935A Assistance with Respiratory Ventilation, Less than 24 Consecutive Hours, High Flow/Velocity Cannula (ICD-10-PCS; 2020-05-28)
PROC: 5A0935A Assistance with Respiratory Ventilation, Less than 24 Consecutive Hours, High Flow/Velocity Cannula (ICD-10-PCS; 2020-05-29)
PROC: 5A0935A Assistance with Respiratory Ventilation, Less than 24 Consecutive Hours, High Flow/Velocity Cannula (ICD-10-PCS; 2020-05-30)
DX: U07.1 COVID-19 (principal); E43 Unspecified severe protein-calorie malnutrition; J12.82 Pneumonia due to coronavirus disease 2019; J80 Acute respiratory distress syndrome; N17.0 Acute kidney failure with tubular necrosis; E87.1 Hypo-osmolality and hyponatremia; G72.81 Critical illness myopathy; K21.9 Gastro-esophageal reflux disease without esophagitis
CPT/HCPCS: 36415; 71045; 80048; 80053; 80076; 81001; 82550; 82728; 83605; 83615; 83735; 83880; 84145; 85007; 85025; 85379; 87040; 93005; 94618; 94760; 96361; 96365; 96375; J0456; J0696; J1100; J1650; J3475; J3480; J3490; J7030; J7050; 99285-25; G0378